=== PATIENT | female | born 1925 | race Caucasian/White ===

== ENCOUNTER → 2016-09-03 | Outpatient (CLI) | payer BC ==
[~2016-09-03] MED LIST: ASCO500T16 PO; ASPI81TA21 PO; B-CO1CAP17 PO; CALCTAB65 PO; CHOL1000 PO; CRD200 PO; LACTTAB PO; LEVO75TA25 PO; LEVO75TA5 PO; LORA-741 PO; MAGN250T22 PO; METO25TA56 PO; MIRT15TA3 PO; MULT-190 PO; MULTCAP33 PO; MULTTAB58 PO; PRT40 PO
[2016-09-03 18:26] LABS: THYROID STIMULATING HORMONE 2.12 uIu/ml (0.300-4.500)
== END | disposition home or self-care (01) ==
LOC: C.LABBFT 12:33
PROVIDERS: ATTEND Internal Medicine
DX: R63.4 Abnormal weight loss (principal)

== ENCOUNTER → 2017-01-28 | Outpatient (CLI) | payer BC ==
[2017-01-28 16:25] LABS: BASO % 0.5 %; BASO ABS # 0.02 K/uL (0-0.2); COMPLETE YES; EOS % 2.8 %; HEMATOCRIT 35.1 % (37-47); IG% 0.2 %; LYMPH % 21.9 %; LYMPH ABS # 0.95 K/uL (1.2-3.4); MEAN CELL VOLUME 94.4 fL (80-100); MEAN CORPUSCULAR HEMOGLOBIN 30.4 pg (25-34); MEAN CORPUSCULAR HGB CONC 32.2 g/dl (32-36); MEAN PLATELET VOLUME 10.6 fL (7.4-10.4); MONO % 9.7 %; NEUT % 64.9 %; PLATELET COUNT 237 K/uL (130-400); RED BLOOD COUNT 3.72 M/uL (4.2-5.4); WHITE BLOOD COUNT 4.33 K/uL (4.8-10.8)
[2017-01-28 16:33] LABS: ALT/SGPT 28 U/L (12-78); BLOOD UREA NITROGEN 25 mg/dl (7-18); BUN/CREATININE RATIO 20.7 (10-20); CARBON DIOXIDE 29 mmol/L (21-32); CHLORIDE 108 mmol/L (98-107); CHOLESTEROL 142 mg/dl (0-200); GLUCOSE 154 mg/dl (70-99); POTASSIUM 4.3 mmol/L (3.5-5.1); SODIUM 142 mmol/L (136-145)
[2017-01-28 16:44] LABS: ALB/GLOB RATIO 0.9 (0.9-2); ALKALINE PHOSPHATASE 110 U/L (45-117); AST/SGOT 22 U/L (15-37); CHOLESTEROL/HDL RATIO 2.7; HDL CHOLESTEROL 52 mg/dl; LDL CHOLESTEROL CALCULATED 63 mg/dl; TRIGLYCERIDES 134 mg/dl (0-150); VERY LOW DENSITY LIPOPROT CALC 27 mg/dl
== END | disposition home or self-care (01) ==
LOC: C.LABBFT 16:29
PROVIDERS: ATTEND Internal Medicine
DX: I48.91 Unspecified atrial fibrillation (principal); M81.0 Age-related osteoporosis without current pathological fracture; E03.9 Hypothyroidism, unspecified; E78.5 Hyperlipidemia, unspecified

== ENCOUNTER 2017-02-24 08:02 | Inpatient (IN) | payer BC, OTHER ==
[2017-02-24] VITALS (7 sets, daily range): BP systolic 112–169; BP diastolic 55–69; PULSE 61–66; TEMP 36.3–36.7; O2SAT 94–98; Ht 154.9 cm; Wt 54.9 kg
[~2017-02-24] VITALS: Ht 154.9 cm; Wt 54.9 kg
[~2017-02-24 08:02] MED LIST changes: -B-CO1CAP17 PO; -CHOL1000 PO; -CRD200 PO; -LEVO75TA5 PO; -MIRT15TA3 PO; -MULTCAP33 PO; -PRT40 PO
[2017-02-24] MEDS ORDERED: SODIUM CHLORIDE 0.9% 1000ML 1,000 ML IV STA (08:11)
--- NOTE | 2017-02-24 08:13 | EMERGENCY ROOM VISIT NOTE ---
History Report prepared by Branden: Jenifer August Under the Supervision of: Dr. Kobi Velasco M.D. First contact with patient: 08:05 Stated Complaint: LETHARGIC/GI BLEEDING History of Present Illness The patient is a 89 year old female who presents to the Emergency Room with complaints of a GI bleed beginning today. The patient reports that there was more blood with this GI bleed than her last one, which required a transfusion. She also complains of abdominal pain, but denies that she is coughing up blood. The patient has a history of rectal cancer. She reports being off of Coumadin for a couple of months. Source of History: patient Onset: today Position: other (rectum) Quality: other (GI bleed) Associated Symptoms: + abdominal pain Note: denied symptom: coughing up blood Review of Systems See HPI for pertinent positives & negatives. A total of 10 systems reviewed and were otherwise negative. Past Medical & Surgical Medical Problems: (1) Atrial fibrillation with RVR (2) Atrial fibrillation with RVR (3) Bleeding hemorrhoids (4) Chest pain syndrome (5) Hypothyroidism (6) Influenza B (7) Osteoporosis (8) rectal bleeding (9) Rectal cancer Family History FHx: cancer Social History Smoking Status: Never Smoker Alcohol Use: none Drug Use: none Marital Status: Housing Status: lives with family Occupation Status: retired Current/Historical Medications Scheduled Amiodarone HCl (Amiodarone HCl), 200 MG PO MWF Ascorbic Acid (Ascorbic Acid), 500 MG PO BID Aspirin Enteric Coated (Ecotrin Or Generic), 81 MG PO HS Calcium Carbonate-Vitamin D (Calcium 500 + D), 1 TAB PO DAILY Cholecalciferol (Vitamin D3), 1,000 UNIT PO DAILY Levothyroxine Sodium (Levothyroxine Sodium), 75 MCG PO DAILY Magnesium Oxide (Magnesium), 250 MG PO DAILY Mirtazapine (Remeron), 15 MG PO HS Multiple Vitamin (Multivitamin), 1 TAB PO DAILY Multiple Vitamins W/ Minerals (Preservision Areds), 1 CAP PO BID Vitamin B Cmplx/Vitc/Folic Ac (Nephrocaps), 1 CAP PO QAM Scheduled PRN Lorazepam (Ativan), 0.5 MG PO DAILY PRN for Anxiety Allergies Coded Allergies: Red Dye (Verified Allergy, Unknown, ., 8/16/17) Physical Exam Vital Signs Date Time Temp Pulse Resp B/P (MAP) Pulse Ox O2 Delivery O2 Flow Rate FiO2 02/24/17 10:11 68 20 150/65 98 Room Air 02/24/17 08:17 95 Room Air 02/24/17 08:15 36.9 69 16 171/95 96 Room Air 02/24/17 08:14 67 Physical Exam GENERAL: Patient is a healthy-appearing well-nourished female HEAD: Normocephalic atraumatic EYES: Ocular movements intact pupils equal and react to light OROPHARYNX mucous membranes are moist no exudates present no erythema or edema present NECK: Supple no nuchal rigidity CHEST: Good equal expansion LUNGS: Clear and equal to auscultation CARDIAC: Normal S1 and S2 ABDOMEN: Soft nontender no guarding BACK: No CVA tenderness RECTAL: grossly positive exam EXTREMITIES: No pain upon palpation normal muscle strength in all groups no clubbing cyanosis or edema NEURO: Patient is following commands and answering questions appropriately. Alert and oriented x3 Cranial Nerves 2-12 grossly intact Medical Decision & Procedures ER Provider Diagnostic Interpretation: Radiology results as stated below per my review and radiologist interpretation: CT ABD/PELVIS IV CONTRAST ONLY CLINICAL HISTORY: Rectal bleeding HISTORY OF RECTAL CARCINOMA COMPARISON STUDY: 09/10/2015 TECHNIQUE: Following the IV administration of 93 mL of Optiray-320, CT scan of the abdomen and pelvis was performed from the lung bases to the proximal femurs. Images are reviewed in the axial, sagittal, and coronal planes. IV contrast was administered without complication. A dose lowering technique was utilized adhering to the principles of ALARA. CT DOSE: 397.62 mGycm FINDINGS: Lower chest: The heart is enlarged. There is mild bibasilar atelectasis. Liver: There is mild central intrahepatic biliary ductal prominence, unchanged the prior study. There is a stable 11 mm cyst within the lateral segment of the left lobe area Gallbladder: Not visualized Spleen: Normal in size and attenuation. Pancreas: There is an 11 mm cystic lesion at the level of the pancreatic tail. There is a 17 mm cystic lesion at the level the uncinate process. 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 Adrenal glands: Unremarkable. Kidneys: There are bilateral renal cysts, the largest of which arises from the upper pole the left kidney measuring 36 mm. Bowel: There are no transition zones indicate bowel obstruction. There is mild fecal retention. There is pandiverticulosis. There are no findings to indicate acute diverticulitis. There is a hyperdense diverticulum within the transverse colon. Hemorrhage into a diverticulum cannot be excluded. Peritoneum: There is no intraperitoneal free air or abdominal ascites. Vasculature: The abdominal aorta is normal in course and caliber. Adenopathy: None. Pelvic viscera: The uterus appears surgically absent. Skeletal structures: No destructive osseous lesions are seen. There is a lumbar levoscoliosis. Degenerative changes are present within the spine and hips. IMPRESSION: 1. No evidence of bowel obstruction. No evidence of free air 2. Pandiverticulosis 3. No evidence of acute diverticulitis 4. Hyperdense diverticulum within the transverse colon. Hemorrhage into a diverticulum cannot be excluded 5. 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 02/24/2017 9:36 AM Dictated Date/Time: 02/24/2017 9:27 AM Laboratory Results 02/24/17 08:20 Red Blood Count 3.88, Mean Corpuscular Volume 91.2, Mean Corpuscular Hemoglobin 30.4, Mean Corpuscular Hemoglobin Concent 33.3, Mean Platelet Volume 10.8, Neutrophils (%) (Auto) 66.9, Lymphocytes (%) (Auto) 21.3, Monocytes (%) (Auto) 8.2, Eosinophils (%) (Auto) 3.0, Basophils (%) (Auto) 0.4, Neutrophils # (Auto) 3.78, Lymphocytes # (Auto) 1.20, Monocytes # (Auto) 0.46, Eosinophils # (Auto) 0.17, Basophils # (Auto) 0.02 02/24/17 08:20 Test 02/24/17 08:20 02/24/17 08:24 02/24/17 08:26 02/24/17 10:43 White Blood Count 5.64 K/uL (4.8-10.8) Red Blood Count 3.88 M/uL (4.2-5.4) Hemoglobin 11.8 g/dL (12.0-16.0) Hematocrit 35.4 % (37-47) Mean Corpuscular Volume 91.2 fL (80-100) Mean Corpuscular Hemoglobin 30.4 pg (25-34) Mean Corpuscular Hemoglobin Concent 33.3 g/dl (32-36) Platelet Count 210 K/uL (130-400) Mean Platelet Volume 10.8 fL (7.4-10.4) Neutrophils (%) (Auto) 66.9 % Lymphocytes (%) (Auto) 21.3 % Monocytes (%) (Auto) 8.2 % Eosinophils (%) (Auto) 3.0 % Basophils (%) (Auto) 0.4 % Neutrophils # (Auto) 3.78 K/uL (1.4-6.5) Lymphocytes # (Auto) 1.20 K/uL (1.2-3.4) Monocytes # (Auto) 0.46 K/uL (0.11-0.59) Eosinophils # (Auto) 0.17 K/uL (0-0.5) Basophils # (Auto) 0.02 K/uL (0-0.2) RDW Standard Deviation 44.6 fL (36.4-46.3) RDW Coefficient of Variation 13.4 % (11.5-14.5) Immature Granulocyte % (Auto) 0.2 % Immature Granulocyte # (Auto) 0.01 K/uL (0.00-0.02) Activated Partial Thromboplast Time 24.7 SECONDS (21.0-31.0) Partial Thromboplastin Ratio 1.0 Est Creatinine Clear Calc Drug Dose 31.9 ml/min Estimated GFR () 58.6 Estimated GFR (Non- 50.5 BUN/Creatinine Ratio 31.5 (10-20) Calcium Level 9.5 mg/dl (8.5-10.1) Total Bilirubin 0.7 mg/dl (0.2-1) Direct Bilirubin 0.1 mg/dl (0-0.2) Aspartate Amino Transf (AST/SGOT) 22 U/L (15-37) Alanine Aminotransferase (ALT/SGPT) 25 U/L (12-78) Alkaline Phosphatase 101 U/L (45-117) Total Protein 7.6 gm/dl (6.4-8.2) Albumin 3.6 gm/dl (3.4-5.0) Lipase 172 U/L (73-393) Bedside Hemoglobin 12.6 g/dl (12.0-16.0) Bedside Hematocrit 37 % (37-47) Bedside Sodium 142 mEq/L (135-144) Bedside Potassium 4.2 mEq/L (3.3-5.0) Bedside Chloride 107 mEq/L (101-112) Bedside Total CO2 24 mEq/l (24-31) Anion Gap 16.0 mmol/L (16-25) Bedside Blood Urea Nitrogen 30 mg/dl (7-18) Bedside Creatinine 0.9 mg/dl (0.6-1.3) Bedside Glucose (other) 84 mg/dl (70-99) Bedside Ionized Calcium (Jaime) 1.16 mmol/l (1.12-1.32) Urine Color YELLOW Urine Appearance CLEAR (CLEAR) Urine pH >= 9.0 (4.5-7.5) Urine Specific [place] 1.012 (1.000-1.030) Urine Protein NEG (NEG) Urine Glucose (UA) NEG (NEG) Urine Ketones NEG (NEG) Urine Occult Blood NEG (NEG) Urine Nitrite NEG (NEG) Urine Bilirubin NEG (NEG) Urine Urobilinogen NEG (NEG) Urine Leukocyte Esterase TRACE (NEG) Urine WBC (Auto) 1-5 /hpf (0-5) Urine RBC (Auto) 0-4 /hpf (0-4) Urine Hyaline Casts (Auto) 0 /lpf (0-5) Urine Epithelial Cells (Auto) 5-10 /lpf (0-5) Urine Bacteria (Auto) NEG (NEG) Creatine Kinase MB Ratio (0-3.0) Labs reviewed by ED physician. Medications Administered Medications (Trade) Dose Ordered Sig/Dariela Route Start Time Stop Time Status Last Admin Dose Admin Sodium Chloride 1,000 ml @ 999 mls/hr Q1H1M STAT IV 02/24/17 08:11 02/24/17 09:11 DC 02/24/17 08:52 999 MLS/HR Pantoprazole Sodium 80 mg/ Dextrose 120 ml @ 480 mls/hr NOW ONCE IV 02/24/17 08:30 02/24/17 08:44 DC 02/24/17 08:53 480 MLS/HR Pantoprazole Sodium 40 mg/ Dextrose 100 ml @ 20 mls/hr Q5H IV 02/24/17 08:45 02/24/17 13:44 02/24/17 09:30 20 MLS/HR ECG Indication: weakness Rate (beats per minute): 67 Rhythm: normal sinus Findings: T-wave inversion (Lateral), no acute ischemic change, no ectopy ED Course 0806: Past medical records reviewed. The patient was evaluated in room A10. A complete history and physical examination was performed. 0811: Ordered Sodium Chloride 1,000 ml @ 999 mls/hr IV. 0830: Ordered Pantoprazole Sodium 80 mg/Dextrose 120 ml @ 480 mls/hr IV. 0845: Ordered Pantoprazole Sodium 40 mg/Dextrose 100 ml @ 20 mls/hr IV. 0915: I discussed the patient's case with Dr. Cruz, she has agreed to evaluate the patient for further management and care. 1006: Ordered Metronidazole 500 mg IV, Ciprofloxacin/Dextrose 400 mg IV. 1030: Upon reexamination the patient is resting. I discussed results and treatment plan with the patient. She verbalizes agreement and understanding. I spoke with Dr. Cruz from the [facility]. The patient will be evaluated for further management. Medical Decision Differential diagnosis: Etiologies such as diverticulosis, AVM, coagulopathy, colitis, inflammatory bowel disease, malignancy, Pat-Gramajo tear, esophagitis, peptic ulcer disease , variceal bleed, gastritis, epistaxis, fissure, hemorrhoids, as well as others were entertained. This is an 89-year-old female who presents emergency department after large amount of rectal bleeding today. The patient appears somewhat confused. An IV was established, the patient was started on Protonix bolus and drip. She has vague abdominal tenderness therefore she was sent for CAT scan of the abdomen and pelvis. This was concerning for possible diverticular bleed and for this reason I did discuss the case with gastroenterology. I will also start the patient on Cipro and Flagyl. Patient was in agreement with the treatment plan. Blood Pressure Screening Patient's blood pressure: Elevated blood pressure Blood pressure disposition: Referred to PCP Consults Time Called: [phone] Consulting Physician: Dr. Cruz, [facility] Returned Call: [phone] I discussed the patient's case with Dr. Cruz, she has agreed to evaluate the patient for further management and care. Impression Primary Impression: GI bleed Scribe Attestation The scribe's documentation has been prepared under my direction and personally reviewed by me in its entirety. I confirm that the note above accurately reflects all work, treatment, procedures, and medical decision making performed by me. Departure Information Dispostion Being Evaluated By Hospitalist Referrals Jaimes, Christopher E.,M.D. (PCP) Problem Qualifiers Primary Impression: GI bleed GI bleed type/associated pathology: unspecified gastrointestinal hemorrhage type Qualified Codes: K92.2 - Gastrointestinal hemorrhage, unspecified
[2017-02-24] MEDS ORDERED: PANTOprazole INJ 80 MG in DEXTROSE 5% 100ML IV ONE (08:30)
[2017-02-24 08:38] LABS: ISTAT CREATININE 0.9 mg/dl (0.6-1.3); ISTAT HEMOGLOBIN 12.6 g/dl (12.0-16.0); ISTAT IONIZED CALCIUM 1.16 mmol/l (1.12-1.32)
[2017-02-24 08:40] LABS: BASO % 0.4 %; BASO ABS # 0.02 K/uL (0-0.2); COMPLETE YES; HEMATOCRIT 35.4 % (37-47); IG% 0.2 %; LYMPH % 21.3 %; MEAN CELL VOLUME 91.2 fL (80-100); MEAN CORPUSCULAR HEMOGLOBIN 30.4 pg (25-34); MEAN CORPUSCULAR HGB CONC 33.3 g/dl (32-36); MEAN PLATELET VOLUME 10.8 fL (7.4-10.4); MONO % 8.2 %; NEUT % 66.9 %; PLATELET COUNT 210 K/uL (130-400); RED BLOOD COUNT 3.88 M/uL (4.2-5.4); WHITE BLOOD COUNT 5.64 K/uL (4.8-10.8)
[2017-02-24] MEDS ORDERED: PANTOprazole INJ 40 MG in DEXTROSE 5% 100ML IV SCH (08:45)
[2017-02-24 08:47] LABS: PROTHROMBIN TIME (PATIENT) 10.7 SECONDS (9.0-12.0)
[2017-02-24 08:56] LABS: BUN/CREATININE RATIO 31.5 (10-20); CALCIUM 9.5 mg/dl (8.5-10.1); CREATININE 0.99 mg/dl (0.60-1.20); POTASSIUM 4.2 mmol/L (3.5-5.1)
[2017-02-24] MEDS ORDERED: MULTCAP33 PO (08:58)
[2017-02-24] MEDS ORDERED: MIRT15TA3 PO (08:58)
[2017-02-24] MEDS ORDERED: CHOL1000 PO (08:58)
[2017-02-24] MEDS ORDERED: LEVO75TA5 PO (08:58)
[2017-02-24] MEDS ORDERED: B-CO1CAP17 PO (08:58)
[2017-02-24] MEDS ORDERED: CRD200 PO (08:58)
[2017-02-24 09:13] LABS: URINE APPEARANCE CLEAR (CLEAR); URINE BILIRUBIN NEG (NEG); URINE COLOR YELLOW; URINE NITRITE NEG (NEG); URINE PH >= 9.0 (4.5-7.5); URINE SPECIFIC GRAVITY 1.012 (1.000-1.030); UROBILINOGEN NEG (NEG)
[2017-02-24 09:18] LABS: MANUAL MICROSCOPIC REQUIRED? NO; REVIEW REQ? NO
--- NOTE | 2017-02-24 09:37 | DIAGNOSTIC IMAGING REPORT ---
CT ABD/PELVIS IV CONTRAST ONLY CLINICAL HISTORY: Rectal bleeding HISTORY OF RECTAL CARCINOMA COMPARISON STUDY: 09/10/2015 TECHNIQUE: Following the IV administration of 93 mL of Optiray-320, CT scan of the abdomen and pelvis was performed from the lung bases to the proximal femurs. Images are reviewed in the axial, sagittal, and coronal planes. IV contrast was administered without complication. A dose lowering technique was utilized adhering to the principles of ALARA. CT DOSE: 397.62 mGycm FINDINGS: Lower chest: The heart is enlarged. There is mild bibasilar atelectasis. Liver: There is mild central intrahepatic biliary ductal prominence, unchanged the prior study. There is a stable 11 mm cyst within the lateral segment of the left lobe area Gallbladder: Not visualized Spleen: Normal in size and attenuation. Pancreas: There is an 11 mm cystic lesion at the level of the pancreatic tail. There is a 17 mm cystic lesion at the level the uncinate process. 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 Adrenal glands: Unremarkable. Kidneys: There are bilateral renal cysts, the largest of which arises from the upper pole the left kidney measuring 36 mm. Bowel: There are no transition zones indicate bowel obstruction. There is mild fecal retention. There is pandiverticulosis. There are no findings to indicate acute diverticulitis. There is a hyperdense diverticulum within the transverse colon. Hemorrhage into a diverticulum cannot be excluded. Peritoneum: There is no intraperitoneal free air or abdominal ascites. Vasculature: The abdominal aorta is normal in course and caliber. Adenopathy: None. Pelvic viscera: The uterus appears surgically absent. Skeletal structures: No destructive osseous lesions are seen. There is a lumbar levoscoliosis. Degenerative changes are present within the spine and hips. IMPRESSION: 1. No evidence of bowel obstruction. No evidence of free air 2. Pandiverticulosis 3. No evidence of acute diverticulitis 4. Hyperdense diverticulum within the transverse colon. Hemorrhage into a diverticulum cannot be excluded 5. 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 02/24/2017 9:36 AM Dictated Date/Time: 02/24/2017 9:27 AM
[2017-02-24] MEDS ORDERED: CIPROFLOXACIN 400MG / 200ML D5W IV STA (10:06)
[2017-02-24] MEDS ORDERED: METRONIDAZOLE 500MG / 100ML NSS IV STA (10:06)
[2017-02-24] MEDS ORDERED: ACETAMINOPHEN 325 MG TAB PO PRN (10:45)
[2017-02-24] MEDS ORDERED: ALUMINUM/MAGNESIUM/SIMETH (MAALOX MAX) 30 ML UDC PO PRN (10:45)
[2017-02-24] MEDS ORDERED: ONDANSETRON INJ 2 MG/ML 2 ML VIAL IV PRN (10:45)
[2017-02-24] MEDS ORDERED: MAGNESIUM HYDROXIDE SUSP 30 ML UDC PO PRN (10:45)
[2017-02-24] MEDS ORDERED: ZOLPIDEM TARTRATE 5 MG TAB PO PRN (10:45)
[2017-02-24] MEDS ORDERED: LORAZEPAM 0.5 MG TAB PO PRN (11:15)
--- NOTE | 2017-02-24 11:18 | History and Physical ---
History & Physical Date of Service Feb 24, 2017. History & Physical rectal bleeding, [id number]
--- NOTE | 2017-02-24 12:00 | HISTORY & PHYSICAL EXAMINATION ---
DATE OF ADMISSION: 02/24/2017 This is a level 3 inpatient admission, 35 minutes. CHIEF COMPLAINT: Rectal bleeding. HISTORY OF PRESENT ILLNESS: The patient is an 89-year-old white female with significant past medical history of Afib with RVR, hypothyroidism, osteoporosis, rectal cancer, GI bleeding coming into the hospital Emergency Department because of the above chief complaint. The medical information was from the patient, patient's family and ED progress note. Per report there was blood from the rectal. She also complained about some abdominal pain. The patient reported has rectal cancer years ago, had radiation and chemo therapies. Last time seen by specialist was many years ago, but she did report there was having GI bleeding in last year in November 2015. The patient has been doing good in life with activities until this morning. she found more blood from the rectal and then she was some possible confused. She reported there was large amount of rectal bleeding today. In the Emergency Room, hemoglobin was checked at 11.8. I was called to do the admission. When I interviewed with the patient, she no more confused. She is awake, alert, and orientated, conversational, follows all commands. Confirmed me the above information. Minimal abdominal pain in the middle and right side. Denied fever or chill. Denied cough, sputum, shortness of breath. Denied chest pain, palpitation, or lower extremity swelling. Denied nausea, vomiting. Denied diarrhea or constipation. Denied dysuria, urgency, or frequencies. Denied facial droop, slurry speeches or local weakness. PAST MEDICAL HISTORY: Afib with rapid ventricular response she also have pulmonary embolization per daughter, was on Coumadin before. Coumadin was off because of history of recurrent GI bleeding. History of chest pain syndrome, hypothyroidism, osteoporosis and rectal cancer. FAMILY HISTORY: Include cancer. SOCIAL HISTORY: Never smoked. Denied alcohol abuse disorder, denied illicit drug abuse. The patient is . MEDICATIONS: Taking at home include amiodarone 200 mg p.o. Wednesday, Wednesday, Wednesday, ascorbic acid 500 mg p.o. b.i.d., aspirin 81 mg p.o. at bedtime, calcium with vitamin D 1 tab p.o. daily, vitamin D3 1000 units p.o. daily, levothyroxine 75 mcg p.o. daily, lorazepam 0.5 mg p.o. p.r.n. for anxiety, mag oxide 250 mg p.o. daily, Remeron 15 mg p.o. at bedtime, multiple vitamin 1 tab p.o. daily, vitamin B complex 1 tab p.o. daily. PHYSICAL EXAMINATION: VITAL SIGNS: Temperature is 36.9, pulse 69, respiration rate 16, blood pressure 171/95. Pulse ox was 95% on room air. GENERAL: The patient is white female, looks much younger than her age. She is awake, alert, and orientated, conversational, follows all commands. HEAD: Normocephalic. EYES: Pupils equal, round responds to light. EARS: Normal. NOSE: Normal. NECK: Thyroid, no enlargement. Trachea midline. HEART: Regular rhythm. S1, S2. LUNGS: Decreased breathing sounds. There was no wheezing, rhonchi or crackles. ABDOMEN: Soft, nontender. Bowel sound was positive. There was minimal middle and right lower extremity uncomfortable. BILATERAL LOWER EXTREMITIES: No swelling. Homans sign was negative. Calf was nontender. GENITOURINARY AND RECTAL: Deferred. NEUROLOGICAL EVALUATION: Cranial nerve II-XII was intact. There was no local deficits. MUSCULOSKELETAL SYSTEM: Moves upper and lower extremities. No limited range of motion. SKIN: Has no rashes. LABORATORY STUDIES: WBC 5, hemoglobin 11, platelet 210. PT/INR was 10/1. Sodium 142, potassium 4.2, BUN 30, creatinine 0.9. Liver function test was within normal limits. Cardiac enzyme, troponin is pending. Lipase 172. UA shows trace leukocyte esterase. IMAGING STUDIES: Include abdominal CT studies, there was no evidence of bowel obstruction, no free air. There was gonzales diverticulosis. No evidence of acute diverticulitis. There was hyperdense diverticulum within the transverse colon, hemorrhage into diverticulum cannot be excluded. 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 ASSESSMENT AND PLAN: An 89-year-old white female with the problems below: 1. Rectal bleeding with history of rectal cancer and lower gastrointestinal bleeding. 2. Was mild confused prior to the Emergency Room visit totally resolved. 3. History of Afib, no more on Coumadin. 4. Possible history of pulmonary embolism per family, but was not in the document. Not on any blood thinner. 5. Hypothyroidism. 6. History of osteoporosis. 7. Abdominal CT studies, possible hemorrhage into diverticulum cannot be excluded. 8. 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 PLAN: The patient has a history of colon cancer with active rectal bleeding. For now will admit to the hospital. PCU only. We will keep n.p.o. except medication. Protonix iv, and HH q. 8 x5 times. GI consult. I request surgeon consult because of possible hemorrhages into the diverticulum cannot be excluded. I will also request GI to address small bowel cystic pancreatic lesions likely be presenting IPMNS. Because IPMNS possible have 50% malignancy. type and screen blood. Discussed the risk and benefit of the blood transfusion. Consent was signed. For hypothyroidism, we will start IV levothyroxine. Hold other medications. Hold aspirin for now. Follow up renal function and H&H. I am checking cardiac enzyme troponin x1 set now. Gastrointestinal prophylaxis will be Protonix. DVT prophylaxis is SCD. No heparin product because is contraindicated. Discussed with patient and patient's daughter and son-in-law at bedside about the patient's condition and care plan. Discussed with the code status, PATIENT WANTS TO BE FULL CODE. I answered all the questions to the patient and family to their satisfaction. FLORENCE
--- NOTE | 2017-02-24 12:19 | Gastrointestinal Consultation ---
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 She woke up at 5AM, went to urinate but then noticed to start having bright red rectal bleeding w small amt of soft stool. She denies any associated symptoms of n/v, abd pain/cramping, rectal pain/itching. By the time she got to bed around 6AM, noticed blood on pt's gown. Family decided then to take her to ED. Upon evaluation, she was noted to have H/H , rectal exam w heme positive. CMP showed mild BUN elevation at 30. INR normal. LFTs and lipase normal. She is c/o some light headedness, but no CP, SOB. VS stable, except HTN. She did have hx of rectal bleeding in the November 2015. Had colonoscopy by Dr. Anderson then which showed severe diverticulosis on sigmoid colon, no active bleeding at that time but scope was difficult to pass due to narrowing related to diverticuli. Proximal lesion cannot be excluded. If future screening to be done she was recommended to have virtual or barium colonoscopy. CT abd/pelvis today: 1. No evidence of bowel obstruction. No evidence of free air 2. Pandiverticulosis 3. No evidence of acute diverticulitis 4. Hyperdense diverticulum within the transverse colon. Hemorrhage into a diverticulum cannot be excluded 5. 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 Past Medical/Surgical History Medical Problems: (1) GI bleed Status: Acute (2) GI bleed Status: Acute (3) Lower GI bleed Status: Acute Past Medical History: See HPI Past Surgical History: Cholecystectomy Hysterectomy Partial Colectomy Family History FHx: cancer Social History Smoking Status: Never Smoker Alcohol Use: none Drug Use: none Marital Status: Housing Status: lives with family Occupation Status: retired Allergies Coded Allergies: Red Dye (Verified Allergy, Unknown, ., 02/24/17) Current Medications Home Meds and Scripts Medications Dose Route/Sig Max Daily Dose Days Date Category Remeron (Mirtazapine) 15 Mg Tab 15 Mg PO HS 02/24/17 Reported Vitamin D3 (Cholecalciferol) 1,000 Unit Tab 1,000 Unit PO DAILY 02/24/17 Reported Nephrocaps (Vitamin B Complex/Vit C/Folic Acid) Cap 1 Cap PO QAM 02/24/17 Reported Preservision Areds (Multiple Vitamins W/ Minerals) 1 Cap Cap 1 Cap PO BID 02/24/17 Reported Levothyroxine Sodium 75 Mcg Tab 75 Mcg PO DAILY 02/24/17 Reported Amiodarone HCl 200 Mg Tab 200 Mg PO MWF 02/24/17 Reported Calcium 500 + D (Calcium Carbonate-Vitamin D) 1 Tab Tab 1 Tab PO DAILY 11/15/15 Reported Magnesium (Magnesium Oxide) 250 Mg Tab 250 Mg PO DAILY 07/03/14 Reported Ativan (Lorazepam) 0.5 Mg Tab 0.5 Mg PO DAILY PRN 07/25/12 Reported Multivitamin (Multiple Vitamin) 1 Tab Tab 1 Tab PO DAILY 07/25/12 Reported Ecotrin Or Generic (Aspirin) 81 Mg Tab 81 Mg PO HS 07/25/12 Reported Ascorbic Acid 500 Mg Tab 500 Mg PO BID 07/25/12 Reported Review of Systems Constitutional: No fever, No chills Respiratory: No cough, No shortness of breath Cardiac: No chest pain Abdomen: + GI bleeding, No pain, No nausea, No vomiting Skin: No rash, No itch, No jaundice Physical Exam Date Time Temp Pulse Resp B/P (MAP) Pulse Ox O2 Delivery O2 Flow Rate FiO2 02/24/17 11:50 64 18 163/67 96 02/24/17 11:08 65 02/24/17 10:15 98 Room Air 02/24/17 10:11 68 20 150/65 98 Room Air 02/24/17 08:17 95 Room Air 02/24/17 08:15 36.9 69 16 171/95 96 Room Air 02/24/17 08:14 67 General Appearance: WD/WN, no apparent distress Eyes: normal inspection, PERRL, EOMI Neck: supple, no JVD, trachea midline Respiratory/Chest: normal breath sounds, no respiratory distress, no accessory muscle use Cardiovascular: regular rate, rhythm, no gallop, no murmur Abdomen: normal bowel sounds, non tender, soft, + pertinent finding (Rectal exam: no masses/hemorrhoids on external. Int exam, soft int hemorrhoids + dried small blood clots) Extremities: normal inspection, no pedal edema, no calf tenderness Neurologic/Psych: alert, normal mood/affect, oriented x 3 Skin: normal color, no jaundice, no rash Laboratory Results Last 24 Hours Test 02/24/17 08:20 02/24/17 08:24 02/24/17 08:26 02/24/17 10:43 White Blood Count 5.64 K/uL Red Blood Count 3.88 M/uL Hemoglobin 11.8 g/dL Hematocrit 35.4 % Mean Corpuscular Volume 91.2 fL Mean Corpuscular Hemoglobin 30.4 pg Mean Corpuscular Hemoglobin Concent 33.3 g/dl Platelet Count 210 K/uL Mean Platelet Volume 10.8 fL Neutrophils (%) (Auto) 66.9 % Lymphocytes (%) (Auto) 21.3 % Monocytes (%) (Auto) 8.2 % Eosinophils (%) (Auto) 3.0 % Basophils (%) (Auto) 0.4 % Neutrophils # (Auto) 3.78 K/uL Lymphocytes # (Auto) 1.20 K/uL Monocytes # (Auto) 0.46 K/uL Eosinophils # (Auto) 0.17 K/uL Basophils # (Auto) 0.02 K/uL RDW Standard Deviation 44.6 fL RDW Coefficient of Variation 13.4 % Immature Granulocyte % (Auto) 0.2 % Immature Granulocyte # (Auto) 0.01 K/uL Prothrombin Time 10.7 SECONDS Prothromb Time International Ratio 1.0 Activated Partial Thromboplast Time 24.7 SECONDS Partial Thromboplastin Ratio 1.0 Sodium Level 142 mmol/L Potassium Level 4.2 mmol/L Chloride Level 109 mmol/L Carbon Dioxide Level 25 mmol/L Anion Gap 8.0 mmol/L 16.0 mmol/L Blood Urea Nitrogen 31 mg/dl Creatinine 0.99 mg/dl Est Creatinine Clear Calc Drug Dose 31.9 ml/min Estimated GFR () 58.6 Estimated GFR (Non- 50.5 BUN/Creatinine Ratio 31.5 Random Glucose 80 mg/dl Calcium Level 9.5 mg/dl Total Bilirubin 0.7 mg/dl Direct Bilirubin 0.1 mg/dl Aspartate Amino Transf (AST/SGOT) 22 U/L Alanine Aminotransferase (ALT/SGPT) 25 U/L Alkaline Phosphatase 101 U/L Creatine Kinase MB 4.5 ng/ml Creatine Kinase MB Ratio Troponin I < 0.015 ng/ml Total Protein 7.6 gm/dl Albumin 3.6 gm/dl Lipase 172 U/L Bedside Hemoglobin 12.6 g/dl Bedside Hematocrit 37 % Bedside Sodium 142 mEq/L Bedside Potassium 4.2 mEq/L Bedside Chloride 107 mEq/L Bedside Total CO2 24 mEq/l Bedside Blood Urea Nitrogen 30 mg/dl Bedside Creatinine 0.9 mg/dl Bedside Glucose (other) 84 mg/dl Bedside Ionized Calcium (Jaime) 1.16 mmol/l Urine Color YELLOW Urine Appearance CLEAR Urine pH >= 9.0 Urine Specific [place] 1.012 Urine Protein NEG Urine Glucose (UA) NEG Urine Ketones NEG Urine Occult Blood NEG Urine Nitrite NEG Urine Bilirubin NEG Urine Urobilinogen NEG Urine Leukocyte Esterase TRACE Urine WBC (Auto) 1-5 /hpf Urine RBC (Auto) 0-4 /hpf Urine Hyaline Casts (Auto) 0 /lpf Urine Epithelial Cells (Auto) 5-10 /lpf Urine Bacteria (Auto) NEG Impression Patient is a 89 year old female w painless rectal bleeding. Hx of rectal ca in , + severe diverticulosis. Previously had similar presentation of rectal bleeding in November 2015 suspected to be either hemorrhoidal or diverticular in nature. Colonoscopy unable to be fully completed due to diverticular narrowing. Suspect this time another diverticular bleed. CT showed: 1. No evidence of bowel obstruction. No evidence of free air 2. Pandiverticulosis 3. No evidence of acute diverticulitis 4. Hyperdense diverticulum within the transverse colon. Hemorrhage into a diverticulum cannot be excluded 5. 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 - No need for PPI gtt; ok for Protonix 40mg IV BID. - Supportive management I have seen and examined the patient with SAMARA Guardado whose note reflects our findings and plan. Agree with stool testing. She had a limited scope last year which showed sigmoid diverticulosis. Suspect this is the etiology. She has severe diverticular disease with restricted mobility. Attempting a repeat colonoscopy was advised against by Dr. Anderson. I do not feel strongly that she needs a colonoscopy repeated. Follow H/H and symptoms.
[2017-02-24] MEDS ORDERED: PANTOprazole INJ 40 MG in SYRINGE 0 ML IV ONE (12:21)
--- NOTE | 2017-02-24 13:21 | Surgery Consultation ---
Consultation Date of Consultation: Feb 24, 2017. Attending Physician: Huan Vargas MD, PhD History of Present Illness Monisha Donahue is an 89 year old woman with A fib (on ASA 81mg only, no other anticoagulation), hx of PE, hypothyroidism, osteoporosis, history of rectal cancer s/p chemo, radiation and endoscopic resection who presents with painless rectal bleeding, which started early this morning. She has had previous episodes of rectal bleeding in the past, most recently in November 2015; during this episode, a colonoscopy was attempted, but due to extensive diverticulum with narrowing of the colon, was unable to traverse the entire colon. She has not had any sigmoidoscopy / colonoscopies since that time. It was suspected that she had a diverticular bleed. Patient states the episode started around 5am this morning, at which time she had a bowel movement and noted blood in the toilet bowel. Her also noticed blood on the back of her clothing. She has continued to bleed throughout the morning, and presented to the ED for evaluation. She has otherwise been in her normal state of health - denies recent fever, chills, headaches, vision changes, chest pain, SOB, abdominal pain , N/V, appetite or weight changes, constipation / diarrhea, melena / hematochezia, dysuria or urinary symptoms, pain / numbness / swelling / tingling in extremities. She notes after she arrived to the ED she felt cold and lightheaded and had mild right sided abdominal pain. She has a history of open cholecystectomy and hysterectomy. Past Medical/Surgical History Medical History: Atrial fibrillation Hypothyroidism History of PE Osteoporosis History of rectal cancer - s/p chemo, radiation, endoscopic resection Diverticulosis Histor of previous lower GI bleeds Surgical History: Open cholecystectomy Hysterectomy Endoscopic resection of rectal cancer Family History FHx: cancer Social History Smoking Status: Never Smoker Drug Use: none Marital Status: Housing Status: lives with family Occupation Status: retired Allergies Coded Allergies: Red Dye (Verified Allergy, Unknown, ., 02/24/17) Home Medications Scheduled Amiodarone HCl (Amiodarone HCl), 200 MG PO MWF Ascorbic Acid (Ascorbic Acid), 500 MG PO BID Aspirin Enteric Coated (Ecotrin Or Generic), 81 MG PO HS Calcium Carbonate-Vitamin D (Calcium 500 + D), 1 TAB PO DAILY Cholecalciferol (Vitamin D3), 1,000 UNIT PO DAILY Levothyroxine Sodium (Levothyroxine Sodium), 75 MCG PO DAILY Magnesium Oxide (Magnesium), 250 MG PO DAILY Mirtazapine (Remeron), 15 MG PO HS Multiple Vitamin (Multivitamin), 1 TAB PO DAILY Multiple Vitamins W/ Minerals (Preservision Areds), 1 CAP PO BID Vitamin B Cmplx/Vitc/Folic Ac (Nephrocaps), 1 CAP PO QAM Scheduled PRN Lorazepam (Ativan), 0.5 MG PO DAILY PRN for Anxiety Current Inpatient Medications Current Inpatient Medications Medications (Trade) Dose Ordered Sig/Dariela Route Start Time Stop Time Status Last Admin Dose Admin Potassium Chloride/Sodium Chloride 1,000 ml @ 100 mls/hr Q10H IV 02/24/17 12:30 03/26/17 12:29 Acetaminophen (Tylenol Tab) 650 mg Q4H PRN PO 02/24/17 10:45 03/26/17 10:44 Al Hydrox/Mg Hydrox/Simethicone (Maalox Max Susp) 15 ml Q4H PRN PO 02/24/17 10:45 03/26/17 10:44 Magnesium Hydroxide (Milk Of Magnesia Susp) 30 ml Q12H PRN PO 02/24/17 10:45 03/26/17 10:44 Zolpidem Tartrate (Ambien Tab) 5 mg HSZ PRN PO 02/24/17 10:45 03/26/17 10:44 Ondansetron HCl (Zofran Inj) 4 mg Q6H PRN IV 02/24/17 10:45 03/26/17 10:44 Amiodarone HCl (Cordarone Tab) 200 mg MoWeFr PO 02/24/17 13:00 03/26/17 12:59 Lorazepam (Ativan Tab) 0.5 mg DAILY PRN PO 02/24/17 11:15 03/26/17 11:14 Mirtazapine (Remeron Tab) 15 mg HS PO 02/24/17 21:00 03/26/17 20:59 Levothyroxine Sodium 37.5 mcg/ Syringe 1.875 ml @ 2 mls/min DAILY@09 IV 02/25/17 09:00 03/27/17 08:59 Pantoprazole Sodium 40 mg/ Syringe 10 ml @ 5 mls/min DAILY@,21 IV 02/24/17 21:00 03/26/17 20:59 Review of Systems Constitutional: + weakness, No fever, No sweats, No weight loss Eyes: No worsening of vision, No eye pain Respiratory: No cough, No shortness of breath, No dyspnea on exertion Cardiovascular: No chest pain, No edema Abdomen: + pain (mild right abdominal pain), + GI bleeding (Rectal bleeding since 5am this morning, now slowed), No nausea, No vomiting, No diarrhea, No constipation Genitourinary - Female: No dysuria Neurologic: + memory loss Physical Exam Date Time Temp Pulse Resp B/P (MAP) Pulse Ox O2 Delivery O2 Flow Rate FiO2 02/24/17 12:13 36.3 63 18 156/69 (98) 96 Room Air 02/24/17 11:50 64 18 163/67 96 02/24/17 11:08 65 02/24/17 10:15 98 Room Air 02/24/17 10:11 68 20 150/65 98 Room Air 02/24/17 08:17 95 Room Air 02/24/17 08:15 36.9 69 16 171/95 96 Room Air 02/24/17 08:14 67 General Appearance: WD/WN, no apparent distress Head: normocephalic, atraumatic Neck: supple Respiratory/Chest: lungs clear, normal breath sounds, no respiratory distress Cardiovascular: regular rate, rhythm Abdomen/GI: normal bowel sounds, soft, + tenderness (mild right abdominal tenderness to palpation), + abnormal rectal exam (normal to external examination , no internal masses palpable, very small amount of dark blood on glove) Back: normal inspection Skin: normal color, warm/dry Laboratory Results Last 24 Hours Test 02/24/17 08:20 02/24/17 08:24 02/24/17 08:26 02/24/17 10:43 White Blood Count 5.64 K/uL Red Blood Count 3.88 M/uL Hemoglobin 11.8 g/dL Hematocrit 35.4 % Mean Corpuscular Volume 91.2 fL Mean Corpuscular Hemoglobin 30.4 pg Mean Corpuscular Hemoglobin Concent 33.3 g/dl Platelet Count 210 K/uL Mean Platelet Volume 10.8 fL Neutrophils (%) (Auto) 66.9 % Lymphocytes (%) (Auto) 21.3 % Monocytes (%) (Auto) 8.2 % Eosinophils (%) (Auto) 3.0 % Basophils (%) (Auto) 0.4 % Neutrophils # (Auto) 3.78 K/uL Lymphocytes # (Auto) 1.20 K/uL Monocytes # (Auto) 0.46 K/uL Eosinophils # (Auto) 0.17 K/uL Basophils # (Auto) 0.02 K/uL RDW Standard Deviation 44.6 fL RDW Coefficient of Variation 13.4 % Immature Granulocyte % (Auto) 0.2 % Immature Granulocyte # (Auto) 0.01 K/uL Prothrombin Time 10.7 SECONDS Prothromb Time International Ratio 1.0 Activated Partial Thromboplast Time 24.7 SECONDS Partial Thromboplastin Ratio 1.0 Sodium Level 142 mmol/L Potassium Level 4.2 mmol/L Chloride Level 109 mmol/L Carbon Dioxide Level 25 mmol/L Anion Gap 8.0 mmol/L 16.0 mmol/L Blood Urea Nitrogen 31 mg/dl Creatinine 0.99 mg/dl Est Creatinine Clear Calc Drug Dose 31.9 ml/min Estimated GFR () 58.6 Estimated GFR (Non- 50.5 BUN/Creatinine Ratio 31.5 Random Glucose 80 mg/dl Calcium Level 9.5 mg/dl Total Bilirubin 0.7 mg/dl Direct Bilirubin 0.1 mg/dl Aspartate Amino Transf (AST/SGOT) 22 U/L Alanine Aminotransferase (ALT/SGPT) 25 U/L Alkaline Phosphatase 101 U/L Creatine Kinase MB 4.5 ng/ml Creatine Kinase MB Ratio Troponin I < 0.015 ng/ml Total Protein 7.6 gm/dl Albumin 3.6 gm/dl Lipase 172 U/L Bedside Hemoglobin 12.6 g/dl Bedside Hematocrit 37 % Bedside Sodium 142 mEq/L Bedside Potassium 4.2 mEq/L Bedside Chloride 107 mEq/L Bedside Total CO2 24 mEq/l Bedside Blood Urea Nitrogen 30 mg/dl Bedside Creatinine 0.9 mg/dl Bedside Glucose (other) 84 mg/dl Bedside Ionized Calcium (Jaime) 1.16 mmol/l Urine Color YELLOW Urine Appearance CLEAR Urine pH >= 9.0 Urine Specific [place] 1.012 Urine Protein NEG Urine Glucose (UA) NEG Urine Ketones NEG Urine Occult Blood NEG Urine Nitrite NEG Urine Bilirubin NEG Urine Urobilinogen NEG Urine Leukocyte Esterase TRACE Urine WBC (Auto) 1-5 /hpf Urine RBC (Auto) 0-4 /hpf Urine Hyaline Casts (Auto) 0 /lpf Urine Epithelial Cells (Auto) 5-10 /lpf Urine Bacteria (Auto) NEG Assessment & Plan Monihsa Donahue is an 89 year old woman with A fib (on ASA 81mg only, no other anticoagulation), hx of PE, hypothyroidism, osteoporosis, history of rectal cancer s/p chemo, radiation and endoscopic resection who presents with painless rectal bleeding, which started early this morning. She is not anticoagulated ( INR 1.0). Bleeding seems to have stopped - no bright red blood present on rectal exam. Vitals remain stable and normal; Hgb 11.8 on admission. -No acute surgical intervention indicated at this time -Trend vitals and Hgb level -If bleeding recurs, consider colonoscopy (GI consulted as well, will defer to their team) -NPO for now, IVF hydration -Pain / nausea control if needed -Rest of care per primary team -Will continue to follow Milli Jack MD 02/24/17
[2017-02-24] MEDS: NSS + 20MEQ KCL 1000ML 1,000 ML IV SCH ×2 (13:51→23:30)
[2017-02-24 14:37] LABS: HEMATOCRIT 30.5 % (37-47)
[2017-02-24] MEDS: AMIODARONE 200 MG TAB PO SCH (15:47)
[2017-02-24] MEDS: MIRTAZAPINE TAB 15 MG TAB PO SCH (20:38)
[2017-02-24] MEDS ORDERED: PANTOprazole INJ 40 MG in SYRINGE 0 ML IV SCH (21:00)
[2017-02-25 03:22] VITALS: BP 148/92; PULSE 70; TEMP 36.9; O2SAT 97
[2017-02-25 06:27] LABS: HEMATOCRIT 31.5 % (37-47)
[2017-02-25 07:02] LABS: BUN/CREATININE RATIO 21.3 (10-20); CALCIUM 8.2 mg/dl (8.5-10.1); CREATININE 0.8 mg/dl (0.60-1.20); MAGNESIUM 2.2 mg/dl (1.8-2.4); POTASSIUM 4.5 mmol/L (3.5-5.1)
[2017-02-25 07:06] LABS: CHOLESTEROL/HDL RATIO 2.9
[2017-02-25 07:52] VITALS: BP 169/66; PULSE 64; TEMP 36.7; O2SAT 96
--- NOTE | 2017-02-25 08:16 | Surgery Progress Note ---
Surgery Progress Note Date of Service Feb 25, 2017. Subjective Patient examined at bedside this morning. Afebrile, vitals stable on room air, no acute events overnight. States she has some RLQ tenderness when lying in certain positions - otherwise denies abdominal pain. Has not had any further BMs since the ED, has not noticed any rectal bleeding since arriving to the floor. Has only been out of bed to ambulate to bathroom, no dizziness noted with ambulation. Currently denies lightheaded / dizziness, headaches, chest pain, SOB. Urinating without difficultyNo complaints this morning. Objective Vital Signs: Date Time Temp Pulse Resp B/P (MAP) Pulse Ox O2 Delivery O2 Flow Rate FiO2 02/25/17 07:52 36.7 64 18 169/66 (100) 96 Room Air 02/25/17 04:00 Room Air 02/25/17 03:22 36.9 70 15 148/92 (110) 97 Room Air 02/24/17 23:59 Room Air 02/24/17 23:13 36.7 65 18 146/67 (93) 94 Room Air 02/24/17 20:00 Room Air 02/24/17 19:14 36.4 66 16 169/69 (102) 95 Room Air 02/24/17 16:00 Room Air 02/24/17 15:59 36.6 63 20 112/55 (74) 97 Room Air 02/24/17 13:57 61 143/62 (89) 95 Room Air 02/24/17 12:13 36.3 63 18 156/69 (98) 96 Room Air 02/24/17 12:00 96 02/24/17 11:50 64 18 163/67 96 02/24/17 11:08 65 02/24/17 10:15 98 Room Air 02/24/17 10:11 68 20 150/65 98 Room Air 02/24/17 08:17 95 Room Air 02/24/17 08:15 36.9 69 16 171/95 96 Room Air 02/24/17 08:14 67 General Appearance: WD/WN, no apparent distress Head: normocephalic, atraumatic Neck: supple Respiratory/Chest: lungs clear, normal breath sounds Cardiovascular: regular rate, rhythm Abdomen: normal bowel sounds, non distended, soft (No rebound / guarding), + tenderness (Mildly tender to palpation in right lower quadrant) Laboratory Results: Results Past 24 Hours Test 02/24/17 08:20 02/24/17 08:24 02/24/17 08:26 02/24/17 10:43 Range/Units White Blood Count 5.64 4.8-10.8 K/uL Red Blood Count 3.88 4.2-5.4 M/uL Hemoglobin 11.8 12.0-16.0 g/dL Hematocrit 35.4 37-47 % Mean Corpuscular Volume 91.2 80-100 fL Mean Corpuscular Hemoglobin 30.4 25-34 pg Mean Corpuscular Hemoglobin Concent 33.3 32-36 g/dl Platelet Count 210 130-400 K/uL Mean Platelet Volume 10.8 7.4-10.4 fL Neutrophils (%) (Auto) 66.9 % Lymphocytes (%) (Auto) 21.3 % Monocytes (%) (Auto) 8.2 % Eosinophils (%) (Auto) 3.0 % Basophils (%) (Auto) 0.4 % Neutrophils # (Auto) 3.78 1.4-6.5 K/uL Lymphocytes # (Auto) 1.20 1.2-3.4 K/uL Monocytes # (Auto) 0.46 0.11-0.59 K/uL Eosinophils # (Auto) 0.17 0-0.5 K/uL Basophils # (Auto) 0.02 0-0.2 K/uL RDW Standard Deviation 44.6 36.4-46.3 fL RDW Coefficient of Variation 13.4 11.5-14.5 % Immature Granulocyte % (Auto) 0.2 % Immature Granulocyte # (Auto) 0.01 0.00-0.02 K/uL Prothrombin Time 10.7 9.0-12.0 SECONDS Prothromb Time International Ratio 1.0 0.9-1.1 Activated Partial Thromboplast Time 24.7 21.0-31.0 SECONDS Partial Thromboplastin Ratio 1.0 Sodium Level 142 136-145 mmol/L Potassium Level 4.2 3.5-5.1 mmol/L Chloride Level 109 98-107 mmol/L Carbon Dioxide Level 25 21-32 mmol/L Anion Gap 8.0 16.0 16-25 mmol/L Blood Urea Nitrogen 31 7-18 mg/dl Creatinine 0.99 0.60-1.20 mg/dl Est Creatinine Clear Calc Drug Dose 31.9 ml/min Estimated GFR () 58.6 Estimated GFR (Non- 50.5 BUN/Creatinine Ratio 31.5 10-20 Random Glucose 80 70-99 mg/dl Calcium Level 9.5 8.5-10.1 mg/dl Total Bilirubin 0.7 0.2-1 mg/dl Direct Bilirubin 0.1 0-0.2 mg/dl Aspartate Amino Transf (AST/SGOT) 22 15-37 U/L Alanine Aminotransferase (ALT/SGPT) 25 12-78 U/L Alkaline Phosphatase 101 45-117 U/L Creatine Kinase MB 4.5 0.5-3.6 ng/ml Creatine Kinase MB Ratio 0-3.0 Troponin I < 0.015 0-0.045 ng/ml Total Protein 7.6 6.4-8.2 gm/dl Albumin 3.6 3.4-5.0 gm/dl Lipase 172 73-393 U/L Bedside Hemoglobin 12.6 12.0-16.0 g/dl Bedside Hematocrit 37 37-47 % Bedside Sodium 142 135-144 mEq/L Bedside Potassium 4.2 3.3-5.0 mEq/L Bedside Chloride 107 101-112 mEq/L Bedside Total CO2 24 24-31 mEq/l Bedside Blood Urea Nitrogen 30 7-18 mg/dl Bedside Creatinine 0.9 0.6-1.3 mg/dl Bedside Glucose (other) 84 70-99 mg/dl Bedside Ionized Calcium (Jaime) 1.16 1.12-1.32 mmol/l Urine Color YELLOW Urine Appearance CLEAR CLEAR Urine pH >= 9.0 4.5-7.5 Urine Specific [place] 1.012 1.000-1.030 Urine Protein NEG NEG Urine Glucose (UA) NEG NEG Urine Ketones NEG NEG Urine Occult Blood NEG NEG Urine Nitrite NEG NEG Urine Bilirubin NEG NEG Urine Urobilinogen NEG NEG Urine Leukocyte Esterase TRACE NEG Urine WBC (Auto) 1-5 0-5 /hpf Urine RBC (Auto) 0-4 0-4 /hpf Urine Hyaline Casts (Auto) 0 0-5 /lpf Urine Epithelial Cells (Auto) 5-10 0-5 /lpf Urine Bacteria (Auto) NEG NEG Test 02/24/17 14:04 02/24/17 21:47 02/25/17 06:02 Range/Units Hemoglobin 9.8 10.0 10.0 12.0-16.0 g/dL Hematocrit 30.5 33.0 31.5 37-47 % Sodium Level 144 136-145 mmol/L Potassium Level 4.5 3.5-5.1 mmol/L Chloride Level 114 98-107 mmol/L Carbon Dioxide Level 27 21-32 mmol/L Anion Gap 3.0 3-11 mmol/L Blood Urea Nitrogen 17 7-18 mg/dl Creatinine 0.80 0.60-1.20 mg/dl Est Creatinine Clear Calc Drug Dose 35.9 ml/min Estimated GFR () 75.8 Estimated GFR (Non- 65.4 BUN/Creatinine Ratio 21.3 10-20 Random Glucose 79 70-99 mg/dl Calcium Level 8.2 8.5-10.1 mg/dl Magnesium Level 2.2 1.8-2.4 mg/dl Triglycerides Level 76 0-150 mg/dl Cholesterol Level 132 0-200 mg/dl HDL Cholesterol 45 mg/dl LDL Cholesterol, Calculated 72 mg/dl VLDL Cholesterol, Calculated 15 mg/dl Cholesterol/HDL Ratio 2.9 Hemoglobin remains stable on serial labs Assessment & Plan Monisha Donahue is an 89 year old woman with A fib (on ASA 81mg only, no other anticoagulation), hx of PE, hypothyroidism, osteoporosis, history of rectal cancer s/p chemo, radiation and endoscopic resection who presents with painless rectal bleeding, which has ceased since hospital admission. Vitals remain stable and normal; Hgb has been stable on serial labs. She has not yet had a BM since admission to the floor. -No acute surgical intervention indicated at this time -Continue to trend vitals and serial Hgb levels -If bleeding recurs, consider colonoscopy (GI following as well, will defer to their team) -OK to trial clear liquids from surgical standpoint, would continue IVF until PO intake is adequate -Pain / nausea control if needed -Rest of care per primary team -Will continue to follow Milli Jack MD 02/25/17
--- NOTE | 2017-02-25 08:43 | Gastroenterology Progress Note ---
Progress Note Date of Service: Feb 25, 2017 Subjective Pt evaluation today including: conversation w/ patient, physical exam, chart review, lab review, review of inpatient medication list Pt did well overnight. Small BM this AM w/o rectal bleeding. C/o slight LLQ abd discomfort but no n/v, denies fever, chills. H/H stable, Hgb dropped 1 pt Review of Systems Constitutional: No fever, No chills Respiratory: No cough, No shortness of breath Cardiac: No chest pain, No edema Abdomen: + pain (LLQ), No nausea, No vomiting, No GI bleeding Medications Current Inpatient Medications Medications (Trade) Dose Ordered Sig/Dariela Route Start Time Stop Time Status Last Admin Dose Admin Potassium Chloride/Sodium Chloride 1,000 ml @ 100 mls/hr Q10H IV 02/24/17 12:30 03/26/17 12:29 02/24/17 23:30 100 MLS/HR Acetaminophen (Tylenol Tab) 650 mg Q4H PRN PO 02/24/17 10:45 03/26/17 10:44 Al Hydrox/Mg Hydrox/Simethicone (Maalox Max Susp) 15 ml Q4H PRN PO 02/24/17 10:45 03/26/17 10:44 Magnesium Hydroxide (Milk Of Magnesia Susp) 30 ml Q12H PRN PO 02/24/17 10:45 03/26/17 10:44 Zolpidem Tartrate (Ambien Tab) 5 mg HSZ PRN PO 02/24/17 10:45 03/26/17 10:44 Ondansetron HCl (Zofran Inj) 4 mg Q6H PRN IV 02/24/17 10:45 03/26/17 10:44 Amiodarone HCl (Cordarone Tab) 200 mg MoWeFr PO 02/24/17 13:00 03/26/17 12:59 02/24/17 15:47 200 MG Lorazepam (Ativan Tab) 0.5 mg DAILY PRN PO 02/24/17 11:15 03/26/17 11:14 Mirtazapine (Remeron Tab) 15 mg HS PO 02/24/17 21:00 03/26/17 20:59 02/24/17 20:38 15 MG Levothyroxine Sodium 37.5 mcg/ Syringe 1.875 ml @ 2 mls/min DAILY@09 IV 02/25/17 09:00 03/27/17 08:59 Pantoprazole Sodium 40 mg/ Syringe 10 ml @ 5 mls/min DAILY@, IV 02/24/17 21:00 03/26/17 20:59 02/24/17 21:49 5 MLS/MIN Objective Vital Signs Date Time Temp Pulse Resp B/P (MAP) Pulse Ox O2 Delivery O2 Flow Rate FiO2 02/25/17 07:52 36.7 64 18 169/66 (100) 96 Room Air 02/25/17 04:00 Room Air 02/25/17 03:22 36.9 70 15 148/92 (110) 97 Room Air 02/24/17 23:59 Room Air 02/24/17 23:13 36.7 65 18 146/67 (93) 94 Room Air 02/24/17 20:00 Room Air 02/24/17 19:14 36.4 66 16 169/69 (102) 95 Room Air 02/24/17 16:00 Room Air 02/24/17 15:59 36.6 63 20 112/55 (74) 97 Room Air 02/24/17 13:57 61 143/62 (89) 95 Room Air 02/24/17 12:13 36.3 63 18 156/69 (98) 96 Room Air 02/24/17 12:00 96 02/24/17 11:50 64 18 163/67 96 02/24/17 11:08 65 02/24/17 10:15 98 Room Air 02/24/17 10:11 68 20 150/65 98 Room Air Physical Exam General Appearance: WD/WN, no apparent distress Eyes: normal inspection, PERRL, EOMI Neck: supple, no JVD, trachea midline Respiratory/Chest: normal breath sounds, no respiratory distress, no accessory muscle use Cardiovascular: regular rate, rhythm, no gallop, no murmur Abdomen: soft, + abnormal bowel sounds (hypoactive), + tenderness (LLQ) Extremities: normal inspection, no pedal edema, no calf tenderness Neurologic/Psych: alert, normal mood/affect, oriented x 3 Skin: normal color, no jaundice, no rash Laboratory Results Last 24 Hours Test 02/24/17 10:43 02/24/17 14:04 02/24/17 21:47 02/25/17 06:02 Creatine Kinase MB Ratio Hemoglobin 9.8 g/dL 10.0 g/dL 10.0 g/dL Hematocrit 30.5 % 33.0 % 31.5 % Sodium Level 144 mmol/L Potassium Level 4.5 mmol/L Chloride Level 114 mmol/L Carbon Dioxide Level 27 mmol/L Anion Gap 3.0 mmol/L Blood Urea Nitrogen 17 mg/dl Creatinine 0.80 mg/dl Est Creatinine Clear Calc Drug Dose 35.9 ml/min Estimated GFR () 75.8 Estimated GFR (Non- 65.4 BUN/Creatinine Ratio 21.3 Random Glucose 79 mg/dl Calcium Level 8.2 mg/dl Magnesium Level 2.2 mg/dl Triglycerides Level 76 mg/dl Cholesterol Level 132 mg/dl HDL Cholesterol 45 mg/dl LDL Cholesterol, Calculated 72 mg/dl VLDL Cholesterol, Calculated 15 mg/dl Cholesterol/HDL Ratio 2.9 Assessment and Plan Patient is a 89 year old female w painless rectal bleeding. Hx of rectal ca in , + severe diverticulosis. Previously had similar presentation of rectal bleeding in November 2015 suspected to be either hemorrhoidal or diverticular in nature. Colonoscopy unable to be fully completed due to diverticular narrowing. Suspect this time another diverticular bleed. H/H stable, no more rectal bleeding since admission. Plans - Monitor H/H and transfuse prn - Check Cdiff and stool cx to r/o infectious processes. - No need for PPI gtt; ok for Protonix 40mg PO BID. - Supportive management - Will watch peripherally, call if new questions or concerns arise. Attg addendum: I interviewed and examined this pt, reviewed chart and labs. Pt with presumed diverticular bleeding, now with stable hgb and no rectal bleeding. Bulmaro PO. Cont to follow hgb. she is ok for d/c if she has no bleeding for 48 hours. Please call us if she has recurrent bleeding; would consider bleeding scan.
[2017-02-25] MEDS ORDERED: LEVOTHYROXINE SODIUM INJ 37.5 MCG in SYRINGE 0 ML IV SCH (09:00)
[2017-02-25] MEDS: PANTOprazole SOD 40 MG TAB PO SCH ×2 (09:47→21:58)
[2017-02-25] MEDS: NSS + 20MEQ KCL 1000ML 1,000 ML IV SCH ×2 (09:48→21:57)
[2017-02-25] MEDS ORDERED: PANTOprazole INJ 40 MG in SYRINGE 0 ML IV SCH (11:00)
[2017-02-25 12:00] VITALS: BP 145/75; PULSE 66; TEMP 36.8; O2SAT 97
[2017-02-25] MEDS ORDERED: NURSING VERBAL MED ORDER ONE (12:45)
[2017-02-25 14:06] LABS: HEMATOCRIT 29.8 % (37-47)
--- NOTE | 2017-02-25 16:27 | Progress Note ---
Subjective Date of Service: Feb 25, 2017. Subjective Pt evaluation today including: conversation w/ patient, conversation w/ family , physical exam, chart review, lab review, review of studies, conversation w/ art consultant, review of inpatient medication list In bed, rest, looks much better than yesterday, no complaining, reported this morning has bowel movement, no blood in the stool Problem List Medical Problems: (1) GI bleed Status: Acute (2) GI bleed Status: Acute (3) Lower GI bleed Status: Acute Review of Systems Constitutional: + weakness, + fatigue, No fever, No chills, No sweats, No weight loss, No problem reported Eyes: No worsening of vision, No eye pain, No redness, No discharge, No diplopia ENT: No hearing loss, No unusual epistaxis, No nasal symptoms, No sore throat, No tinnitus, No dental problems, No trouble swallowing Respiratory: No cough, No sputum, No wheezing, No shortness of breath, No dyspnea on exertion, No dyspnea at rest, No hemoptysis Cardiac: No chest pain, No orthopnea, No PND, No edema, No claudication, No palpitations Abdomen: No pain, No nausea, No vomiting, No diarrhea, No constipation Musculoskeletal: No joint pain, No muscle pain, No swelling, No calf pain Female : No dysuria, No urinary frequency, No hematuria, No incontinence, No abnormal vaginal bleeding, No vaginal discharge Neurologic: No memory loss, No paralysis, No weakness, No numbness/tingling, No vertigo, No balance problems Psychiatric: No depression symptoms, No anhedonism, No anxiety, No insomnia, No substance abuse Heme: No abnormal bleeding/bruising, No clotting problems, No swollen lymph nodes, No night sweats Endo: No fatigue, No excessive thirst, No excessive urination Skin: No rash, No itch, No new/changing skin lesions, No color change, No bleeding Objective Vital Signs Date Time Temp Pulse Resp B/P (MAP) Pulse Ox O2 Delivery O2 Flow Rate FiO2 02/25/17 12:00 Room Air 02/25/17 12:00 36.8 66 18 145/75 (98) 97 Room Air 02/25/17 08:00 Room Air 02/25/17 07:52 36.7 64 18 169/66 (100) 96 Room Air 02/25/17 04:00 Room Air 02/25/17 03:22 36.9 70 15 148/92 (110) 97 Room Air 02/24/17 23:59 Room Air 02/24/17 23:13 36.7 65 18 146/67 (93) 94 Room Air 02/24/17 20:00 Room Air 02/24/17 19:14 36.4 66 16 169/69 (102) 95 Room Air Physical Exam General Appearance: WD/WN, no apparent distress, + thin, + pertinent finding ( mild pale) Eyes: normal inspection, PERRL, EOMI, sclerae normal ENT: normal ENT inspection, hearing grossly normal, pharynx normal Neck: supple, no adenopathy, thyroid normal, no JVD, no carotid bruits, trachea midline Respiratory/Chest: chest non-tender, lungs clear, normal breath sounds, no respiratory distress, no accessory muscle use Cardiovascular: regular rate, rhythm, no edema, no gallop, no JVD, no murmur Abdomen: normal bowel sounds, non tender, soft, no organomegaly, no pulsatile mass Extremities: normal range of motion, non-tender, normal inspection, no pedal edema, no calf tenderness, normal capillary refill, pelvis stable 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, no motor/sensory deficits, alert, normal mood/affect, oriented x 3 Skin: normal color, warm/dry, no rash Lymphatic: no adenopathy Laboratory Results Last 24 Hours Test 02/24/17 21:47 02/25/17 06:02 02/25/17 13:55 Hemoglobin 10.0 g/dL 10.0 g/dL 9.8 g/dL Hematocrit 33.0 % 31.5 % 29.8 % Sodium Level 144 mmol/L Potassium Level 4.5 mmol/L Chloride Level 114 mmol/L Carbon Dioxide Level 27 mmol/L Anion Gap 3.0 mmol/L Blood Urea Nitrogen 17 mg/dl Creatinine 0.80 mg/dl Est Creatinine Clear Calc Drug Dose 35.9 ml/min Estimated GFR () 75.8 Estimated GFR (Non- 65.4 BUN/Creatinine Ratio 21.3 Random Glucose 79 mg/dl Calcium Level 8.2 mg/dl Magnesium Level 2.2 mg/dl Triglycerides Level 76 mg/dl Cholesterol Level 132 mg/dl HDL Cholesterol 45 mg/dl LDL Cholesterol, Calculated 72 mg/dl VLDL Cholesterol, Calculated 15 mg/dl Cholesterol/HDL Ratio 2.9 Assessment and Plan 89-year-old with history of rectal cancer was admitted on 02/24/2017 because of lower gastrointestinal bleeding lower gastrointestinal bleeding, H&H need to be stable Abdominal CT studies, possible hemorrhage into diverticulum cannot be excluded, GI and surgeon on the case, just follow up and watch, and supportive care for now Per GI, presumed diverticular bleeding, , maybe ok for d/c if she has no bleeding for 48 hours. bleeding scan has ordered Was mild confused prior to the Emergency Room visit, totally resolved. 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 Continue current care with oral Protonix Gastrointestinal prophylaxis will be Protonix. DVT prophylaxis is SCD. No heparin product because is contraindicated. full code Possible discharge home tomorrow Continued [facility] stay due to: multiple IV medications needed Discharge planning: home
[2017-02-25 21:20] VITALS: BP 154/84; PULSE 69; TEMP 37; O2SAT 96
--- NOTE | 2017-02-25 21:26 | DIAGNOSTIC IMAGING REPORT ---
GI BLEEDING SCAN CLINICAL HISTORY: 89 years-old Female presenting with lower gi bleeding. TECHNIQUE: Following the IV administration of 27.8 mCi of technetium 99m UltraTag labeled red blood cells, nuclear bleeding scan was performed. Anterior flow images were obtained every 2 seconds for a total 48 seconds. Anterior static images were obtained every 5 minutes for a total of 60 minutes. COMPARISON: None. FINDINGS: Initial dynamic flow imaging demonstrates expected radiotracer within the vasculature as well as in the liver and spleen. Subsequent static imaging demonstrates progressive bladder activity, which does not significantly limit the examination. No convincing evidence of radiotracer in the expected distribution of the bowel to suggest active gastrointestinal hemorrhage. IMPRESSION: No evidence of gastrointestinal bleed. Electronically signed by: Rudy Erickson M.D. 02/25/2017 9:25 PM Dictated Date/Time: 02/25/2017 9:20 PM
[2017-02-25] MEDS: MIRTAZAPINE TAB 15 MG TAB PO SCH (21:57)
[2017-02-25 22:23] LABS: HEMATOCRIT 32.5 % (37-47)
[2017-02-26] VITALS (7 sets, daily range): BP systolic 131–192; BP diastolic 65–84; PULSE 66–74; TEMP 36.5–37.1; O2SAT 94–97
[2017-02-26] MEDS: LEVOTHYROXINE 75 MCG TAB PO SCH (05:35)
[2017-02-26] MEDS: NSS + 20MEQ KCL 1000ML 1,000 ML IV SCH (05:35)
[2017-02-26 06:20] LABS: CREATININE 0.78 mg/dl (0.60-1.20); MAGNESIUM 2.1 mg/dl (1.8-2.4); POTASSIUM 4.2 mmol/L (3.5-5.1)
--- NOTE | 2017-02-26 06:51 | DIAGNOSTIC IMAGING REPORT ---
BILIARY ULTRASOUND CLINICAL HISTORY: right upper quadrant abdominal pain COMPARISON STUDY: No previous studies for comparison. FINDINGS: The pancreas appears normal as visualized. No focal hepatic masses are visualized. There is no right-sided hydronephrosis. There is a prominent right renal pelvis. There is an 11 mm upper pole right renal cyst. The common bile duct measures 7 mm. The gallbladder surgically absent. IMPRESSION: 1. Surgically absent gallbladder 2. 7 mm common bile duct 3. Mildly prominent right renal pelvis Electronically signed by: Cipriano Nolasco M.D. 02/26/2017 6:50 AM Dictated Date/Time: 02/26/2017 6:48 AM
--- NOTE | 2017-02-26 07:49 | Surgery Progress Note ---
Surgery Progress Note Date of Service Feb 26, 2017. Subjective Patient examined at bedside this morning. Afebrile, hypertensive overnight - otherwise breathing comfortably on room air, no acute events. Feels well this morning. Still has a dull ache in RLQ, but otherwise denies abdominal pain. Had several BMs yesterday, per patient she did not notice any gross blood or rectal bleeding. Hgb has remained stable. She is tolerating food for breakfast this morning, denies N/V. Ambulating and voiding without difficulty. Objective Vital Signs: Date Time Temp Pulse Resp B/P (MAP) Pulse Ox O2 Delivery O2 Flow Rate FiO2 02/26/17 04:22 36.5 73 18 161/82 (108) 97 Room Air 02/26/17 04:00 Room Air 02/26/17 00:42 36.6 74 16 192/82 (118) 94 Room Air 02/25/17 23:59 Room Air 02/25/17 21:20 37.0 69 18 154/84 (107) 96 Room Air 02/25/17 21:10 Room Air 02/25/17 16:00 Room Air 02/25/17 12:00 Room Air 02/25/17 12:00 36.8 66 18 145/75 (98) 97 Room Air 02/25/17 08:00 Room Air 02/25/17 07:52 36.7 64 18 169/66 (100) 96 Room Air General Appearance: WD/WN, no apparent distress Head: normocephalic, atraumatic Neck: supple Respiratory/Chest: lungs clear, normal breath sounds Cardiovascular: regular rate, rhythm Abdomen: normal bowel sounds, non tender, non distended, soft Laboratory Results: Results Past 24 Hours Test 02/25/17 13:55 02/25/17 22:06 02/26/17 05:29 Range/Units Hemoglobin 9.8 10.3 12.0-16.0 g/dL Hematocrit 29.8 32.5 37-47 % Sodium Level 145 136-145 mmol/L Potassium Level 4.2 3.5-5.1 mmol/L Chloride Level 116 98-107 mmol/L Carbon Dioxide Level 26 21-32 mmol/L Anion Gap 3.0 3-11 mmol/L Blood Urea Nitrogen 12 7-18 mg/dl Creatinine 0.78 0.60-1.20 mg/dl Est Creatinine Clear Calc Drug Dose 36.9 ml/min Estimated GFR () 78.1 Estimated GFR (Non- 67.4 BUN/Creatinine Ratio 16.0 10-20 Random Glucose 81 70-99 mg/dl Calcium Level 8.0 8.5-10.1 mg/dl Magnesium Level 2.1 1.8-2.4 mg/dl Microbiology Results 02/25/17 C.difficile Toxin B Gene (PCR) - Final, Complete No C. difficile toxin B gene detected 02/25/17 Shiga Toxin Test, Received Pending 02/25/17 Stool Culture, Received Pending Assessment & Plan Monisha Donahue is an 89 year old woman with A fib (on ASA 81mg only, no other anticoagulation), hx of PE, hypothyroidism, osteoporosis, history of rectal cancer s/p chemo, radiation and endoscopic resection who presents with painless rectal bleeding, which has ceased since hospital admission. Vitals remain stable and normal (except for hypertensive episode overnight); Hgb has been stable on serial labs. Multiple BMs yesterday without gross blood noted. -No acute surgical intervention indicated at this time -If bleeding recurs, consider colonoscopy (GI following as well, will defer to their team) -Diet as tolerated -Rest of care per primary team -General Surgery will sign off. Please call with any further concerns or questions. Milli Jack MD 02/26/17
[2017-02-26] MEDS: PANTOprazole SOD 40 MG TAB PO SCH ×2 (08:29→19:24)
--- NOTE | 2017-02-26 12:18 | Progress Note ---
Subjective Date of Service: Feb 26, 2017. Subjective Pt evaluation today including: conversation w/ patient, conversation w/ family , physical exam, chart review, lab review, review of studies, conversation w/ retail client solutions consultant, review of inpatient medication list Patient reported no any blood in the stool this morning during a bowel movement , feeling okay No complaint Problem List Medical Problems: (1) GI bleed Status: Acute (2) GI bleed Status: Acute (3) Lower GI bleed Status: Acute Review of Systems Constitutional: + weakness, + fatigue, No fever, No chills, No sweats, No weight loss, No problem reported Eyes: No worsening of vision, No eye pain, No redness, No discharge, No diplopia ENT: No hearing loss, No unusual epistaxis, No nasal symptoms, No sore throat, No tinnitus, No dental problems, No trouble swallowing Respiratory: No cough, No sputum, No wheezing, No shortness of breath, No dyspnea on exertion, No dyspnea at rest, No hemoptysis Cardiac: No chest pain, No orthopnea, No PND, No edema, No claudication, No palpitations Abdomen: No pain, No nausea, No vomiting, No diarrhea, No constipation Musculoskeletal: No joint pain, No muscle pain, No swelling, No calf pain Female : No dysuria, No urinary frequency, No hematuria, No incontinence, No abnormal vaginal bleeding, No vaginal discharge Neurologic: No memory loss, No paralysis, No weakness, No numbness/tingling, No vertigo, No balance problems Psychiatric: No depression symptoms, No anhedonism, No anxiety, No insomnia, No substance abuse Heme: No abnormal bleeding/bruising, No clotting problems, No swollen lymph nodes, No night sweats Endo: No fatigue, No excessive thirst, No excessive urination Skin: No rash, No itch, No new/changing skin lesions, No color change, No bleeding Objective Vital Signs Date Time Temp Pulse Resp B/P (MAP) Pulse Ox O2 Delivery O2 Flow Rate FiO2 02/26/17 11:59 36.9 67 18 135/76 (95) 96 Room Air 02/26/17 08:00 36.6 73 18 158/65 (96) 94 Room Air 02/26/17 08:00 Room Air 02/26/17 04:22 36.5 73 18 161/82 (108) 97 Room Air 02/26/17 04:00 Room Air 02/26/17 00:42 36.6 74 16 192/82 (118) 94 Room Air 02/25/17 23:59 Room Air 02/25/17 21:20 37.0 69 18 154/84 (107) 96 Room Air 02/25/17 21:10 Room Air 02/25/17 16:00 Room Air Physical Exam General Appearance: WD/WN, no apparent distress, + thin, + pertinent finding ( frail) Eyes: normal inspection, PERRL, EOMI, sclerae normal ENT: normal ENT inspection, hearing grossly normal, pharynx normal Neck: supple, no adenopathy, thyroid normal, no JVD, no carotid bruits, trachea midline Respiratory/Chest: chest non-tender, lungs clear, normal breath sounds, no respiratory distress, no accessory muscle use Cardiovascular: regular rate, rhythm, no edema, no gallop, no JVD, no murmur Abdomen: normal bowel sounds, non tender, soft, no organomegaly, no pulsatile mass Extremities: normal range of motion, non-tender, normal inspection, no pedal edema, no calf tenderness, normal capillary refill, pelvis stable 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, no motor/sensory deficits, alert, normal mood/affect, oriented x 3 Skin: normal color, warm/dry, no rash Lymphatic: no adenopathy Laboratory Results Last 24 Hours Test 02/25/17 13:55 02/25/17 22:06 02/26/17 05:29 Hemoglobin 9.8 g/dL 10.3 g/dL Hematocrit 29.8 % 32.5 % Sodium Level 145 mmol/L Potassium Level 4.2 mmol/L Chloride Level 116 mmol/L Carbon Dioxide Level 26 mmol/L Anion Gap 3.0 mmol/L Blood Urea Nitrogen 12 mg/dl Creatinine 0.78 mg/dl Est Creatinine Clear Calc Drug Dose 36.9 ml/min Estimated GFR () 78.1 Estimated GFR (Non- 67.4 BUN/Creatinine Ratio 16.0 Random Glucose 81 mg/dl Calcium Level 8.0 mg/dl Magnesium Level 2.1 mg/dl Assessment and Plan 89-year-old with history of rectal cancer was admitted on 02/24/2017 because of lower gastrointestinal bleeding lower gastrointestinal bleeding, Seems resolved H&H need to be stable Abdominal CT studies, possible hemorrhage into diverticulum cannot be excluded, Surgeon saw the patient, no planning to have any procedure because patient has been stable GI on the case, Per GI, presumed diverticular bleeding, , maybe ok for d/c if she has no bleeding for 48 hours. bleeding scan has ordered, per report: "No evidence of gastrointestinal bleed." Patient got Cipro and Flagyl IV in the emergency known because of severe diverticulosis, patient C. difficile has checked was negative , discussed with GI , Feel no more need antibiotics Was mild confused prior to the Emergency Room visit, totally resolved. History of Afib, was on Coumadin until nausea Mild right upper quadrant pain yesterday No more pain today Right upper quadrant ultrasound was done; Per report: IMPRESSION: 1. Surgically absent gallbladder 2. 7 mm common bile duct 3. 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 DVT prophylaxis is SCD. No heparin product because is contraindicated. full code Discharge plan: increase activity, advance diet, follow-up H&H, possible discharge home tomorrow with planning to follow-up with GI in 1-2 week Continued [facility] stay due to: multiple IV medications needed Discharge planning: home
[2017-02-26] MEDS: AMIODARONE 200 MG TAB PO SCH (13:15)
[2017-02-26] MEDS: MIRTAZAPINE TAB 15 MG TAB PO SCH (20:43)
[2017-02-27] MEDS: LEVOTHYROXINE 75 MCG TAB PO SCH (05:46)
[2017-02-27 05:59] LABS: BASO % 0.7 %; BASO ABS # 0.04 K/uL (0-0.2); COMPLETE YES; EOS % 4.1 %; HEMATOCRIT 30.6 % (37-47); IG% 0.2 %; LYMPH % 19.9 %; LYMPH ABS # 1.11 K/uL (1.2-3.4); MEAN CELL VOLUME 92.4 fL (80-100); MEAN CORPUSCULAR HEMOGLOBIN 30.2 pg (25-34); MEAN CORPUSCULAR HGB CONC 32.7 g/dl (32-36); MEAN PLATELET VOLUME 10.3 fL (7.4-10.4); MONO % 8.1 %; PLATELET COUNT 160 K/uL (130-400); RED BLOOD COUNT 3.31 M/uL (4.2-5.4); WHITE BLOOD COUNT 5.57 K/uL (4.8-10.8)
[2017-02-27 06:25] LABS: BUN/CREATININE RATIO 26.5 (10-20); CALCIUM 8.1 mg/dl (8.5-10.1); CREATININE 0.86 mg/dl (0.60-1.20); POTASSIUM 3.9 mmol/L (3.5-5.1)
[2017-02-27 07:31] VITALS: BP 159/78; PULSE 69; TEMP 36.5; O2SAT 97
[2017-02-27] MEDS ORDERED: PRT40 PO (07:42)
--- NOTE | 2017-02-27 07:45 | Discharge Instructions ---
Discharge Instructions Date of Service Feb 27, 2017. Admission Reason for Admission: Rectal Bleeding Discharge Discharge Diagnosis / Problem: rectal bleeding with history of rectal cancer Discharge Goals Goal(s): Decrease discomfort, Improve function, Increase independence, Improve disease control, Improve nutritional status, Learn about illness, Diagnostic testing, Therapeutic intervention, Prevent Disease Progression, Specific goals Activity Recommendations Activity Limitations: resume your previous activity . 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 - call your primary care physician OR go to local emergency room if has any fever/chill, chest pain, blood in stool, shortness of breathing, nausea/vomiting /abdominal pain, facial droop/slurry speech/local weakness, or if has any questions. - fall precaution - diet as instructed - you need to follow up with your subspecialist - you should understand that it is important to follow up the above instruction , and "not following the above instruction" may cause delayed or missed care of your medical conditions which may cause permanent organ damage and even . Current Hospital Diet Patient's current hospital diet: AHA Diet (Heart Healthy) Discharge Diet Recommended Diet: Regular Diet Procedures Procedures Performed: no Pending Studies Studies pending at discharge: no Laboratory Results Lipid Panel Test 02/25/17 06:02 Range/Units Triglycerides Level 76 0-150 mg/dl Cholesterol Level 132 0-200 mg/dl HDL Cholesterol 45 mg/dl Cholesterol/HDL Ratio 2.9 LDL Cholesterol, Calculated 72 mg/dl Medical Emergencies . Who to Call and When: Medical Emergencies: If at any time you feel your situation is an emergency, please call 911 immediately. . Non-Emergent Contact Non-Emergency issues call your: Primary Care Provider, Fire Engine Operator . . "Provider Documentation" section prepared by Huan Vargas. . VTE Core Measure Inpt VTE Proph given/why not?: Contraindicated
[2017-02-27 09:08] VITALS: BP 159/78; PULSE 69; TEMP 36.5; O2SAT 97
[2017-02-27] MEDS: PANTOprazole SOD 40 MG TAB PO SCH (09:14)
--- NOTE | 2017-02-27 15:32 | Discharge Summary ---
Discharge Summary Date of Service Feb 27, 2017. 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, Immunizations: Have You Had Influenza Vaccine: No History of Tetanus Vaccine?: No History of Pneumococcal: Yes Pneumococcal Date: Mar 04, 2011 History of Hepatitis B Vaccine: No Procedures: No Consultations: GI Medication Reconciliation New Medications: Pantoprazole (Pantoprazole Sodium) 40 Mg Tab 40 MG PO DAILY for 14 Days, TAB Continued Medications: Amiodarone HCl (Amiodarone HCl) 200 Mg Tab 200 MG PO MWF Ascorbic Acid (Ascorbic Acid) 500 Mg Tab 500 MG PO BID, TAB Calcium Carbonate-Vitamin D (Calcium 500 + D) 1 Tab Tab 1 TAB PO DAILY Cholecalciferol (Vitamin D3) 1,000 Unit Tab 1000 UNIT PO DAILY Levothyroxine Sodium (Levothyroxine Sodium) 75 Mcg Tab 75 MCG PO DAILY Lorazepam (Ativan) 0.5 Mg Tab 0.5 MG PO DAILY PRN for Anxiety, TAB Magnesium Oxide (Magnesium) 250 Mg Tab 250 MG PO DAILY Mirtazapine (Remeron) 15 Mg Tab 15 MG PO HS for Sleep Multiple Vitamin (Multivitamin) 1 Tab Tab 1 TAB PO DAILY, TAB Multiple Vitamins W/ Minerals (Preservision Areds) 1 Cap Cap 1 CAP PO BID Vitamin B Cmplx/Vitc/Folic Ac (Nephrocaps) Cap 1 CAP PO QAM Discontinued Medications: Aspirin Enteric Coated (Ecotrin Or Generic) 81 Mg Tab 81 MG PO HS, TAB Discharge Exam Doing well, sitting up in chair, eating breakfast, no any bloody stool for 2 days, denied any dizziness, Review of Systems: Constitutional: No fever, No chills, No sweats, No weight loss, No weakness , No fatigue, No problem reported Eyes: No worsening of vision, No eye pain, No redness, No discharge, No diplopia, No problem reported ENT: No hearing loss, No unusual epistaxis, No nasal symptoms, No sore throat, No tinnitus, No dental problems, No trouble swallowing, No problem reported Respiratory: No cough, No sputum, No wheezing, No shortness of breath, No dyspnea on exertion, No dyspnea at rest, No hemoptysis, No problem reported Cardiovascular: No chest pain, No orthopnea, No PND, No edema, No claudication, No palpitations, No problem reported Abdomen: No pain, No nausea, No vomiting, No diarrhea, No constipation, No GI bleeding, No problem reported Neurologic: No memory loss, No paralysis, No weakness, No numbness/tingling , No vertigo, No balance problems, No problem reported Psychiatric: No depression symptoms, No anhedonism, No anxiety, No insomnia , No substance abuse, No problem reported Endocrine: No fatigue, No excessive thirst, No excessive urination, No problem reported Hematologic / Lymphatic: No abnormal bleeding/bruising, No clotting problems , No swollen lymph nodes, No night sweats, No problem reported Integumentary: No rash, No itch, No new/changing skin lesions, No color change, No bleeding, No problem reported Physical Exam: General Appearance: WD/WN, no apparent distress, + pertinent finding (frail) Eyes: normal inspection, PERRL ENT: normal ENT inspection, hearing grossly normal Neck: supple, no adenopathy Respiratory/Chest: chest non-tender, lungs clear, normal breath sounds, no respiratory distress, no accessory muscle use, + decreased breath sounds Cardiovascular: regular rate, rhythm, no edema, no gallop Abdomen / GI: normal bowel sounds, non tender, no organomegaly, no pulsatile mass Extremities: normal inspection, no calf tenderness, normal capillary refill , no pedal edema Neurologic/Psychiatric: sales agent protective service II-XII nml as tested, no motor/sensory deficits , alert, normal mood/affect, normal reflexes Skin: normal color, warm/dry, no rash Hospital Course 89-year-old with history of rectal cancer was admitted on 02/24/2017 because of lower gastrointestinal bleeding lower gastrointestinal bleeding, Seems resolved , no any blood in the stool for 2 days H&H stable Abdominal CT studies, possible hemorrhage into diverticulum cannot be excluded, Surgeon saw the patient, no planning to have any procedure because patient has been stable GI on the case, Per GI, presumed diverticular bleeding, , maybe ok for d/c if she has no bleeding for 48 hours, H&H has been stable more than 48 hours bleeding scan has ordered, per report: "No evidence of gastrointestinal bleed." Patient got Cipro and Flagyl IV in the emergency known because of severe diverticulosis, patient C. difficile has checked was negative , discussed with GI , Feel no more need antibiotics Was mild confused prior to the Emergency Room visit, totally resolved. History of Afib, was on Coumadin until nausea Mild right upper quadrant pain yesterday No more pain today Right upper quadrant ultrasound was done; Per report: IMPRESSION: 1. Surgically absent gallbladder 2. 7 mm common bile duct 3. 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 DVT prophylaxis is SCD. No heparin product because is contraindicated. 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 - call your primary care physician OR go to local emergency room if has any fever/chill, chest pain, blood in stool, shortness of breathing, nausea/vomiting /abdominal pain, facial droop/slurry speech/local weakness, or if has any questions. - fall precaution - diet as instructed - you need to follow up with your subspecialist - you should understand that it is important to follow up the above instruction , and "not following the above instruction" may cause delayed or missed care of your medical conditions which may cause permanent organ damage and even . Total Time Spent: Greater than 30 minutes This includes examination of the patient, discharge planning, medication reconciliation, and communication with other providers. Discharge Instructions Please refer to the electronic Patient Visit Report (Discharge Instructions) for additional information. Additional Copies To Alexander Jaimes M.D.; [place],
== END 2017-02-27 12:12 | disposition home or self-care (01) | DRG 379 ==
LOC: EDBD 08:02 → C.EDA 08:03 → C.2E 10:51 → ENRESERV 11:34 → UNDOADMIN 12:11 → C.2E 12:11 → ENRESERV 02-26 12:33 → C.4E 02-26 13:34
PROVIDERS: ADMIT Hospitalist; ATTEND Hospitalist
DX: K57.91 Diverticulosis of intestine, part unspecified, without perforation or abscess with bleeding (principal); I48.91 Unspecified atrial fibrillation; E03.9 Hypothyroidism, unspecified; M81.0 Age-related osteoporosis without current pathological fracture; Z79.82 Long term (current) use of aspirin; Z79.899 Other long term (current) drug therapy; Z85.048 Personal history of other malignant neoplasm of rectum, rectosigmoid junction, and anus; Z86.711 Personal history of pulmonary embolism; Z92.3 Personal history of irradiation

== ENCOUNTER → 2017-03-08 | Outpatient (CLI) | payer BC, OTHER ==
[~2017-03-08] MED LIST changes: -ASPI81TA21 PO; +B-CO1CAP17 PO; +CHOL1000 PO; +CRD200 PO; -LACTTAB PO; -LEVO75TA25 PO; +LEVO75TA5 PO; -METO25TA56 PO; +MIRT15TA3 PO; -MULT-190 PO; +MULTCAP33 PO; +PRT40 PO
[2017-03-08 17:51] LABS: MEAN CELL VOLUME 95.1 fL (80-100); MEAN CORPUSCULAR HEMOGLOBIN 29.3 pg (25-34); MEAN CORPUSCULAR HGB CONC 30.9 g/dl (32-36); MEAN PLATELET VOLUME 10.7 fL (7.4-10.4); PLATELET COUNT 250 K/uL (130-400); RED BLOOD COUNT 3.68 M/uL (4.2-5.4); WHITE BLOOD COUNT 5.48 K/uL (4.8-10.8)
[2017-03-09 06:18] LABS: ESTIMATED AVERAGE GLUCOSE 103 mg/dl; HA1C FLAG Normal (Normal)
== END | disposition home or self-care (01) ==
LOC: C.LABBFT 15:20
PROVIDERS: ATTEND Nurse Practitioner
DX: R73.01 Impaired fasting glucose (principal); K92.2 Gastrointestinal hemorrhage, unspecified

== ENCOUNTER 2017-06-30 11:17 | Emergency (ER) | payer BC, OTHER ==
[~2017-06-30] VITALS: Ht 160 cm; Wt 60.3 kg
[2017-06-30 11:29] VITALS: TEMP 36.7; Ht 160 cm; Wt 60.3 kg
--- NOTE | 2017-06-30 12:47 | DIAGNOSTIC IMAGING REPORT ---
R KNEE 3 VIEWS CLINICAL HISTORY: Right knee pain COMPARISON: None. DISCUSSION: The bones are osteopenic. No acute fractures or dislocations are visualized. There are no erosive or destructive changes. There is a 5 mm corticated calcification overlying the inferior patellar pole of the lateral view. IMPRESSION: Osteopenia. No fractures or dislocations are visualized. Minor age-related degenerative change. Electronically signed by: Cipriano Nolasco M.D. 06/30/2017 12:46 PM Dictated Date/Time: 06/30/2017 12:45 PM
--- NOTE | 2017-06-30 12:59 | DIAGNOSTIC IMAGING REPORT ---
HEAD CT NONCONTRAST CT DOSE: HISTORY: fall hit head TECHNIQUE: Multiaxial CT images of the head were performed without the use of intravenous contrast. Automated exposure control was utilized for this study. A dose lowering technique was utilized adhering to the principles of ALARA. Comparison: None. Findings: The paranasal sinuses and mastoid air cells are clear. The calvarium and skull base are intact. There is no mass, hematoma, midline shift, acute infarct. White matter hypodensity is nonspecific but suggestive of microvascular ischemic change. The ventricles and sulci demonstrate mild age-related involutional changes. Left lateral scalp swelling. Punctate calcification within the right basal ganglia, unchanged. Motion artifact. Linear hyperdensity with adjacent to the right temporal lobe on image 11 is likely artifact. Impression: Mild motion artifact. No definite acute intracranial abnormality. Atrophy and microvascular ischemic changes. Left lateral scalp swelling. Electronically signed by: Ruiz Aden M.D. 06/30/2017 12:57 PM Dictated Date/Time: 06/30/2017 12:43 PM
--- NOTE | 2017-06-30 12:59 | DIAGNOSTIC IMAGING REPORT ---
CT OF THE CERVICAL SPINE WITHOUT CONTRAST CLINICAL HISTORY: Fall. COMPARISON STUDY: Cervical spine CT November 28, 2008. TECHNIQUE: Helical axial images of the cervical spine were obtained without IV contrast. Sagittal and coronal reconstructions were viewed. A dose lowering technique was utilized adhering to the principles of ALARA. FINDINGS: Craniocervical junction is intact. There is no acute cervical spine fracture. Slight anterolisthesis of C7 on T1 is unchanged and likely due to facet arthrosis. There is moderate multilevel degenerative disc disease and facet arthrosis of the cervical spine. There is no prevertebral edema. As before, the thyroid gland is enlarged. Lung apices are clear. IMPRESSION: No acute cervical spine fracture or subluxation. Electronically signed by: Pawan Ho M.D. 06/30/2017 12:58 PM Dictated Date/Time: 06/30/2017 12:44 PM
[2017-06-30 13:35] VITALS: BP 193/86; PULSE 66; O2SAT 97
--- NOTE | 2017-06-30 16:12 | EMERGENCY ROOM VISIT NOTE ---
History Report prepared by Branden: Rufino Rodriguez Under the Supervision of: Dr. Damon Reddy D.O. First contact with patient: 11:33 Chief Complaint: FALL Stated Complaint: L KNEE PAIN, L HEAD PAIN, FALL History of Present Illness The patient is a 89 year old female who presents to the Emergency Room with complaints of constant head pain after falling down 4 steps while cleaning today. She also complains of right knee pain. Patient adds she was cleaning her stairs while walking up the steps backwards when she fell. Patient does not currently take any blood thinners. Patient adds that she did not have a syncopal episode. She has no other complaints at this time. No back pain, belly pain, chest pain. Source of History: patient Onset: Today Position: head Timing: constant Associated Symptoms: No LOC Note: Additional symptoms: right knee pain. Review of Systems See HPI for pertinent positives & negatives. A total of 10 systems reviewed and were otherwise negative. Past Medical & Surgical Medical Problems: (1) Atrial fibrillation with RVR (2) Atrial fibrillation with RVR (3) Bleeding hemorrhoids (4) Chest pain syndrome (5) Hypothyroidism (6) Influenza B (7) Osteoporosis (8) rectal bleeding (9) Rectal cancer Family History FHx: cancer Social History Smoking Status: Never Smoker Alcohol Use: none Drug Use: none Marital Status: Housing Status: lives with family Occupation Status: retired Current/Historical Medications Scheduled Amiodarone HCl (Amiodarone HCl), 200 MG PO MWF Ascorbic Acid (Ascorbic Acid), 500 MG PO BID Calcium Carbonate-Vitamin D (Calcium 500 + D), 1 TAB PO DAILY Cholecalciferol (Vitamin D3), 1,000 UNIT PO DAILY Levothyroxine Sodium (Levothyroxine Sodium), 75 MCG PO DAILY Magnesium Oxide (Magnesium), 250 MG PO DAILY Mirtazapine (Remeron), 15 MG PO HS Multiple Vitamin (Multivitamin), 1 TAB PO DAILY Multiple Vitamins W/ Minerals (Preservision Areds), 1 CAP PO BID Vitamin B Cmplx/Vitc/Folic Ac (Nephrocaps), 1 CAP PO QAM Scheduled PRN Lorazepam (Ativan), 0.5 MG PO DAILY PRN for Anxiety Allergies Coded Allergies: Red Dye (Verified Allergy, Unknown, ., 06/30/17) Physical Exam Vital Signs Date Time Temp Pulse Resp B/P (MAP) Pulse Ox O2 Delivery O2 Flow Rate FiO2 06/30/17 13:35 66 18 193/86 97 Room Air 06/30/17 13:30 71 16 96 Room Air 06/30/17 11:29 36.7 61 18 173/76 97 Room Air Physical Exam GENERAL: alert, well appearing, well nourished, no distress, non-toxic HEAD: Contusion on left occiput. EYE EXAM: normal conjunctiva, PERRL and EOM's grossly intact OROPHARYNX: no exudate, no erythema, lips, buccal mucosa, and tongue normal and mucous membranes are moist EARS: TMs clear b/l NECK: supple, no nuchal rigidity, no adenopathy, non-tender CHEST: stable to compression anteriorly and posteriorly LUNGS: clear to auscultation. Normal chest wall mechanics HEART: no murmurs, S1 normal and S2 normal ABDOMEN: abdomen soft, non-tender, normo-active bowel sounds, no masses, no rebound or guarding. PELVIS: stable to compression anteriorly and posteriorly BACK: Back is symmetrical on inspection and there is no deformity, no midline tenderness, no CVA tenderness. UPPER EXTREMITIES: full active and passive range of motion of all joints without tenderness to palpation LOWER EXTREMITIES: full active and passive range of motion of all joints without tenderness to palpation with exception of right knee. Minimal tenderness with palpitation of the knee. Minimal bruising noted. NEURO EXAM: Normal sensorium, cranial nerves II-XII grossly intact, normal speech, no gross weakness of arms, no gross weakness of legs. GCS: 15. Medical Decision & Procedures ER Provider Diagnostic Interpretation: Radiology results as stated below per my review and the radiologist's interpretation: CT OF THE CERVICAL SPINE WITHOUT CONTRAST CLINICAL HISTORY: Fall. COMPARISON STUDY: Cervical spine CT November 28, 2008. TECHNIQUE: Helical axial images of the cervical spine were obtained without IV contrast. Sagittal and coronal reconstructions were viewed. A dose lowering technique was utilized adhering to the principles of ALARA. FINDINGS: Craniocervical junction is intact. There is no acute cervical spine fracture. Slight anterolisthesis of C7 on T1 is unchanged and likely due to facet arthrosis. There is moderate multilevel degenerative disc disease and facet arthrosis of the cervical spine. There is no prevertebral edema. As before, the thyroid gland is enlarged. Lung apices are clear. IMPRESSION: No acute cervical spine fracture or subluxation. Electronically signed by: Pawan Ho M.D. 06/30/2017 12:[address] NON[address]AST CT DOSE: HISTORY: fall hit head TECHNIQUE: Multiaxial CT images of the head were performed without the use of intravenous contrast. Automated exposure control was utilized for this study. A dose lowering technique was utilized adhering to the principles of ALARA. Comparison: None. Findings: The paranasal sinuses and mastoid air cells are clear. The calvarium and skull base are intact. There is no mass, hematoma, midline shift, acute infarct. White matter hypodensity is nonspecific but suggestive of microvascular ischemic change. The ventricles and sulci demonstrate mild age-related involutional changes. Left lateral scalp swelling. Punctate calcification within the right basal ganglia, unchanged. Motion artifact. Linear hyperdensity with adjacent to the right temporal lobe on image 11 is likely artifact. Impression: Mild motion artifact. No definite acute intracranial abnormality. Atrophy and microvascular ischemic changes. Left lateral scalp swelling. Electronically signed by: Ruiz Aden M.D. R KNEE 3 VIEWS CLINICAL HISTORY: Right knee pain COMPARISON: None. DISCUSSION: The bones are osteopenic. No acute fractures or dislocations are visualized. There are no erosive or destructive changes. There is a 5 mm corticated calcification overlying the inferior patellar pole of the lateral view. IMPRESSION: Osteopenia. No fractures or dislocations are visualized. Minor age-related degenerative change. Electronically signed by: Cipriano Nolasco M.D. 06/30/2017 12:46 PM ED Course ED COURSE: Vital signs were reviewed and showed hypertension The patients medical record was reviewed The above diagnostic studies were performed and reviewed. ED treatments and interventions as stated above. 1141: The patient was evaluated in room B5. A complete history and physical examination was performed. 1158: I reassessed the patient and she is resting comfortably. 1307: I checked up on the patient and she is resting comfortably. 1310: Upon reevaluation, the patient is resting comfortably.I discussed my findings with the patient and she understands and agrees with the treatment plan. Based on the patients age, coexisting illnesses, exam and lab findings the decision to treat as an outpatient was made. The patient remained stable while under my care. The patient appeared well at the time of discharge. Medical Decision Differential diagnoses include major intracranial, cervical, spinal, thoracic, abdominal, pelvic and neurologic injury. Fracture, contusion, sprain, strain, laceration, abrasions included as well. Patient is an 89-year-old female who was cleaning her steps walking down backwards and fell. She fell down 4 steps. Does not take any blood thinners. No loss consciousness. She does complain of hip pain. CT head and cervical spine was performed and unremarkable. X-ray of the knee was unremarkable as well. Patient remained stable in the ER. She has no other complaints. She was updated bedside. She was discharged follow-up with PCP. Discussed with Pt concerning signs and symptoms to watch out for. Pt was instructed to follow up with their PCP and discussed with the patient their option to return to the ED at anytime for persistent or worsening symptoms. The appropriate anticipatory guidance and out-patient management, including indications for return to the emergency department, were explained at length to the patient and understood. Medication Reconcilliation Current Medication List: was personally reviewed by me Blood Pressure Screening Patient's blood pressure: Elevated blood pressure Blood pressure disposition: Referred to PCP Impression Primary Impression: Contusion of head Additional Impression: Contusion of knee Scribe Attestation The scribe's documentation has been prepared under my direction and personally reviewed by me in its entirety. I confirm that the note above accurately reflects all work, treatment, procedures, and medical decision making performed by me. Departure Information Dispostion Home / Self-Care Referrals Alexander Jaimes M.D. (PCP) Forms HOME CARE DOCUMENTATION FORM, IMPORTANT VISIT INFORMATION Patient Instructions ED Contusion Lower Ext, ED Contusion Scalp, My [facility] Additional Instructions Please follow up with your primary care doctor with in the next 24 hours. Any worsening of your symptoms, please return to the ED immediately. This includes any fevers greater than 100.4, worsening pain, chest pain, shortness breath, persistent nausea, vomiting, unable to eat or drink, or any other concerning signs or symptoms from your standpoint. Please follow up with your primary care doctor as stated above. Please take Motrin or Tylenol as needed for pain. Problem Qualifiers Primary Impression: Contusion of head Encounter type: initial encounter Contusion of head detail: unspecified part of head Qualified Codes: S00.93XA - Contusion of unspecified part of head , initial encounter Additional Impression: Contusion of knee Encounter type: initial encounter Laterality: right Qualified Codes: S80.01XA - Contusion of right knee, initial encounter
== END 2017-06-30 13:53 | disposition home or self-care (01) ==
LOC: C.EDB 11:20
DX: S00.93XA Contusion of unspecified part of head, initial encounter (principal); S80.01XA Contusion of right knee, initial encounter; W10.9XXA Fall (on) (from) unspecified stairs and steps, initial encounter; Y93.01 Activity, walking, marching and hiking; Y93.89 Activity, other specified; I48.91 Unspecified atrial fibrillation; E03.9 Hypothyroidism, unspecified; M81.0 Age-related osteoporosis without current pathological fracture; Z85.048 Personal history of other malignant neoplasm of rectum, rectosigmoid junction, and anus; Z79.899 Other long term (current) drug therapy

== ENCOUNTER 2017-07-27 14:12 | Inpatient (IN) | payer BC, OTHER ==
[~2017-07-27] VITALS: Ht 154.9 cm; Wt 58.8 kg
[~2017-07-27 14:12] MED LIST changes: -CALCTAB65 PO; -PRT40 PO
[2017-07-27] MEDS ORDERED: CEFAZOLIN IV 1,000 MG in DEXTROSE 5% 50ML 50 ML IV STA (14:30)
[2017-07-27 14:59] LABS: BASO % 0.5 %; BASO ABS # 0.05 K/uL (0-0.2); EOS % 2.3 %; EOS ABS # 0.25 K/uL (0-0.5); HEMATOCRIT 31.2 % (37-47); IG# 0.02 K/uL (0.00-0.02); LYMPH % 9.3 %; LYMPH ABS # 1.01 K/uL (1.2-3.4); MEAN CORPUSCULAR HEMOGLOBIN 30.1 pg (25-34); MEAN CORPUSCULAR HGB CONC 32.1 g/dl (32-36); MEAN PLATELET VOLUME 10.6 fL (7.4-10.4); MONO % 9.3 %; MONO ABS # 1.01 K/uL (0.11-0.59); NEUT % 78.4 %; NEUT ABS # 8.54 K/uL (1.4-6.5); PLATELET COUNT 204 K/uL (130-400); RED CELL DISTRIBUTION WIDTH CV 14.1 % (11.5-14.5); RED CELL DISTRIBUTION WIDTH SD 48.4 fL (36.4-46.3); WHITE BLOOD COUNT 10.88 K/uL (4.8-10.8)
[2017-07-27 15:13] LABS: PTT PATIENT 24.1 SECONDS (21.0-31.0)
[2017-07-27 15:20] LABS: CALCIUM 9.1 mg/dl (8.5-10.1); CREATININE 0.8 mg/dl (0.60-1.20); POTASSIUM 3.9 mmol/L (3.5-5.1)
--- NOTE | 2017-07-27 16:03 | DIAGNOSTIC IMAGING REPORT ---
LEFT UPPER EXTREMITY VENOUS DOPPLER ULTRASOUND CLINICAL HISTORY: Left arm swelling. COMPARISON STUDY: No previous studies for comparison. FINDINGS: The left internal jugular, subclavian, axillary, cephalic, brachial, basilic, radial and ulnar veins were patent. IMPRESSION: No deep venous thrombus within the left upper extremity. Electronically signed by: Pawan Ho M.D. 07/27/2017 4:01 PM Dictated Date/Time: 07/27/2017 4:00 PM
--- NOTE | 2017-07-27 16:04 | DIAGNOSTIC IMAGING REPORT ---
L EXTREMITY NONVASCULAR LIMITED CLINICAL HISTORY: left forearm pain eval for abscess pain TECHNIQUE: Ultrasound COMPARISON STUDY: None FINDINGS: Generalized soft tissue edema of the left forearm. 1 x 2.5 cm fluid pocket at the region of skin edematous change at the left wrist. This potentially represents an old hematoma. Does not appear to be complex. IMPRESSION: Soft tissue edema. Small simple fluid pocket within the soft tissues at the left wrist. This potentially relates to an old seroma or hematoma. Abscess is not entirely excluded but this is felt to be less likely by ultrasound criteria The above report was generated using voice recognition software. It may contain grammatical, syntax or spelling errors. Electronically signed by: Ben Lau M.D. 07/27/2017 4:03 PM Dictated Date/Time: 07/27/2017 4:01 PM
[2017-07-27] MEDS ORDERED: CALCTAB65 PO (16:05)
[2017-07-27] MEDS ORDERED: DICL1GEL34 TOP (16:36)
[2017-07-27] MEDS ORDERED: ASPI81TA28 PO (16:36)
[2017-07-27] MEDS ORDERED: ACET-749 PO (16:36)
[2017-07-27] MEDS ORDERED: IRON PO (16:36)
--- NOTE | 2017-07-27 16:40 | EMERGENCY ROOM VISIT NOTE ---
History Report prepared by Branden: Minnie Islas Under the Supervision of: Dr. Rufino Wu M.D. First contact with patient: 14:23 Chief Complaint: SWELLING TO EXTREMITY Stated Complaint: LEFT ARM SWOLLEN History of Present Illness The patient is an 89 year old female who presents to the Emergency Room with complaints of persistent left arm swelling for two days. She states the swelling began in her upper left forearm and spread to her left hand and fingers. The patient was seen June 30, 2017 for a fall, though did not notice any left arm pain at the time. She states the swelling and pain has worsened overnight. She currently rates her pain an 8/10 in severity. She also notes mild shortness of breath. She denies any fever, vomiting, chest pain, or abdominal pain. The patient was sent to the ED for evaluation by her orthopedic doctor who was concerned about possible DVT. Source of History: patient Onset: two days Position: arm (left) Symptom Intensity: 8/10 Quality: other (swelling) Timing: other (persistent) Associated Symptoms: + SOB (mild), No fevers, No chest pain, No vomiting, No abdominal pain Note: She notes left arm and left hand pain and swelling. Review of Systems See HPI for pertinent positives & negatives. A total of 10 systems reviewed and were otherwise negative. Past Medical & Surgical Medical Problems: (1) Atrial fibrillation with RVR (2) Atrial fibrillation with RVR (3) Bleeding hemorrhoids (4) Chest pain syndrome (5) Fall (6) Hypothyroidism (7) Influenza B (8) Osteoporosis (9) rectal bleeding (10) Rectal cancer Family History FHx: cancer Social History Smoking Status: Never Smoker Alcohol Use: none Drug Use: none Marital Status: Housing Status: lives with family Occupation Status: retired Current/Historical Medications Scheduled Amiodarone HCl (Amiodarone HCl), 200 MG PO MWF Ascorbic Acid (Ascorbic Acid), 500 MG PO BID Aspirin (Aspirin Ec), 81 MG PO DAILY Calcium Carbonate-Vitamin D (Calcium 500 + D), 1 TAB PO DAILY Cholecalciferol (Vitamin D3), 1,000 UNIT PO DAILY Diclofenac Sodium (Topical) (Diclofenac Sodium), 4 GM TOP QID Levothyroxine Sodium (Levothyroxine Sodium), 75 MCG PO DAILY Magnesium Oxide (Magnesium), 250 MG PO DAILY Mirtazapine (Remeron), 15 MG PO HS Multiple Vitamin (Multivitamin), 1 TAB PO DAILY Multiple Vitamins W/ Minerals (Preservision Areds), 1 CAP PO BID Vitamin B Cmplx/Vitc/Folic Ac (Nephrocaps), 1 CAP PO QAM [Iron 75MG/Ml], 5 ML PO AMPM Scheduled PRN Acetaminophen/Codeine (Tylenol W/Codeine #3), 1 TAB PO Q4-6 HRS PRN for Pain Allergies Coded Allergies: Red Dye (Verified Allergy, Unknown, ., 06/30/17) Physical Exam Vital Signs Date Time Temp Pulse Resp B/P (MAP) Pulse Ox O2 Delivery O2 Flow Rate FiO2 07/27/17 15:04 70 15 154/74 99 Room Air 07/27/17 14:18 36.7 67 17 130/76 98 Room Air Physical Exam Constitutional: Vital signs reviewed. Eyes: Pupils are equal round reactive to light. Conjunctiva are noninjected. ENT: Pharynx is clear without erythema or exudate. Mucous membranes are moist. Neck supple without meningeal signs. Respiratory: Clear to auscultation bilaterally. Breath sounds are equal bilaterally. Cardiovascular: Regular rate and rhythm. No rubs or gallops. GI: Soft, nondistended and nontender. Bowel sounds are present. Musculoskeletal: Erythema with increased warmth of left forearm extending into the wrist with swelling and tenderness with swelling extending into the fingers without tenderness in the hand. Her rings are tight on the left ring finger. Integumentary: No cyanosis. Neurological: The patient is awake and alert. No focal deficits. Psychiatric: Normal affect. Medical Decision & Procedures ER Provider Diagnostic Interpretation: Radiology results as stated below per my review and the radiologist's interpretation: LEFT UPPER EXTREMITY VENOUS DOPPLER ULTRASOUND CLINICAL HISTORY: Left arm swelling. COMPARISON STUDY: No previous studies for comparison. FINDINGS: The left internal jugular, subclavian, axillary, cephalic, brachial, basilic, radial and ulnar veins were patent. IMPRESSION: No deep venous thrombus within the left upper extremity. Electronically signed by: Pawan Ho M.D. 07/27/2017 4:01 PM Dictated Date/Time: 07/27/2017 4:00 PM L EXTREMITY NONVASCULAR LIMITED CLINICAL HISTORY: left forearm pain eval for abscess pain TECHNIQUE: Ultrasound COMPARISON STUDY: None FINDINGS: Generalized soft tissue edema of the left forearm. 1 x 2.5 cm fluid pocket at the region of skin edematous change at the left wrist. This potentially represents an old hematoma. Does not appear to be complex. IMPRESSION: Soft tissue edema. Small simple fluid pocket within the soft tissues at the left wrist. This potentially relates to an old seroma or hematoma. Abscess is not entirely excluded but this is felt to be less likely by ultrasound criteria The above report was generated using voice recognition software. It may contain grammatical, syntax or spelling errors. Electronically signed by: Ben Lau M.D. 07/27/2017 4:03 PM Dictated Date/Time: 07/27/2017 4:01 PM Laboratory Results 07/27/17 14:46 Red Blood Count 3.32, Mean Corpuscular Volume 94.0, Mean Corpuscular Hemoglobin 30.1, Mean Corpuscular Hemoglobin Concent 32.1, Mean Platelet Volume 10.6, Neutrophils (%) (Auto) 78.4, Lymphocytes (%) (Auto) 9.3, Monocytes (%) (Auto) 9.3, Eosinophils (%) (Auto) 2.3, Basophils (%) (Auto) 0.5, Neutrophils # (Auto) 8.54, Lymphocytes # (Auto) 1.01, Monocytes # (Auto) 1.01, Eosinophils # (Auto) 0.25, Basophils # (Auto) 0.05 07/27/17 14:46 Test 07/27/17 14:46 White Blood Count 10.88 K/uL (4.8-10.8) Red Blood Count 3.32 M/uL (4.2-5.4) Hemoglobin 10.0 g/dL (12.0-16.0) Hematocrit 31.2 % (37-47) Mean Corpuscular Volume 94.0 fL (80-100) Mean Corpuscular Hemoglobin 30.1 pg (25-34) Mean Corpuscular Hemoglobin Concent 32.1 g/dl (32-36) Platelet Count 204 K/uL (130-400) Mean Platelet Volume 10.6 fL (7.4-10.4) Neutrophils (%) (Auto) 78.4 % Lymphocytes (%) (Auto) 9.3 % Monocytes (%) (Auto) 9.3 % Eosinophils (%) (Auto) 2.3 % Basophils (%) (Auto) 0.5 % Neutrophils # (Auto) 8.54 K/uL (1.4-6.5) Lymphocytes # (Auto) 1.01 K/uL (1.2-3.4) Monocytes # (Auto) 1.01 K/uL (0.11-0.59) Eosinophils # (Auto) 0.25 K/uL (0-0.5) Basophils # (Auto) 0.05 K/uL (0-0.2) RDW Standard Deviation 48.4 fL (36.4-46.3) RDW Coefficient of Variation 14.1 % (11.5-14.5) Immature Granulocyte % (Auto) 0.2 % Immature Granulocyte # (Auto) 0.02 K/uL (0.00-0.02) Prothrombin Time 10.7 SECONDS (9.0-12.0) Prothromb Time International Ratio 1.0 (0.9-1.1) Activated Partial Thromboplast Time 24.1 SECONDS (21.0-31.0) Partial Thromboplastin Ratio 0.9 Anion Gap 6.0 mmol/L (3-11) Est Creatinine Clear Calc Drug Dose 37.7 ml/min Estimated GFR () 75.8 Estimated GFR (Non- 65.4 BUN/Creatinine Ratio 47.0 (10-20) Calcium Level 9.1 mg/dl (8.5-10.1) Laboratory results as reviewed by me. Medications Administered Medications (Trade) Dose Ordered Sig/Dariela Route Start Time Stop Time Status Last Admin Dose Admin Cefazolin Sodium 1000 mg/Dextrose 55 ml @ 100 mls/hr NOW STAT IV 07/27/17 14:30 07/27/17 15:02 DC 07/27/17 15:00 100 MLS/HR ECG Indication: SOB/dyspnea Rate (beats per minute): 68 Rhythm: normal sinus Findings: T-wave inversion (Lateral), no ectopy ED Course 1424: The patient was evaluated in room A4B. A complete history and physical exam was performed. 1430: Ordered Cefazolin Sodium 1,000 mg/Dextrose 55 ml @ 100 mls/hr 1603: I reassessed the patient at this time. I discussed the results and treatment plan with the patient. I answered all pertaining questions that she had. She expressed understanding and verbalized agreement. The patient will be further evaluated. 1610: I spoke with Dr. [facility] orthopedic. We discussed the patients case. He agrees with the treatment plan. 1614: I spoke with sonali Womack. We discussed the patients case. The patient will be evaluated by the [facility] for further management. Medical Decision This is an 89-year-old female presents with left arm pain. Differential diagnosis includes cellulitis, lymphangitis, DVT, superficial thrombophlebitis, abscess. I did perform a limited focused review of portions of the patient's old chart on the electronic medical record. The patient was seen June 30, 2017 for a fall and was diagnosed with contusion of the head and knee. I did evaluate the patient as noted above. She does appear to have a cellulitis to her left forearm. IV access was established. I did order blood cultures. I did treat her with Ancef 1 g IV. I did order and review the patient's blood work as noted in the electronic medical record. I did order an ultrasound of the left arm as well as a Doppler scan of the left arm. I did review the images myself as well as the radiology report as described above. There is no evidence of DVT. The patient does have a fluid collection near the wrist which does not appear to be an abscess by ultrasound criteria. Clinically the area in question is not significantly tender. Her tenderness is mostly near the proximal forearm. I did discuss the case with the orthopedic physician who sent her in for evaluation. He agreed with my plan for hospitalization for IV antibiotics. I did discuss case with the hospitalist and family service caseworker. Medication Reconcilliation Current Medication List: was personally reviewed by me Blood Pressure Screening Patient's blood pressure: Elevated blood pressure Blood pressure disposition: Elevated BP felt to be situational Consults Time Called: 1608 Consulting Physician: Dr. [facility] orthopedic Returned Call: [address] [facility] orthopedic. We discussed the patients case. He agrees with the treatment plan. Additional Consults: Time Called: 1614 Consulted Physician: sonali Womack Additional Comments: I spoke with sonali Womack. We discussed the patients case. The patient will be evaluated by the [facility] for further management. Impression Primary Impression: Left arm cellulitis Scribe Attestation The scribe's documentation has been prepared under my direct and personally reviewed by me in its entirety. I confirm that the note above accurately reflects all work, treatment, procedures, and medical decision making performed by me. Departure Information Dispostion Being Evaluated By Hospitalist Referrals Alexander Jaimes M.D. (PCP) Patient Instructions [facility]
--- NOTE | 2017-07-27 17:17 | History and Physical ---
History & Physical Date & Time of Service: Jul 27, 2017 at 17:11 Chief Complaint: Left Arm Swollen Primary Care Physician: Alexander Jaimes M.D. History of Present Illness Source: patient, family This is a 89 Yo F with PMHx of HTN, HLD, paroxysmal Afib not on anticoagulation due to GI bleed in November 2015, AAA measuring 4.5 cm January 2016, anemia, hx rectal carcinoma with resection and XRT in 1991, hypothyroidism, gait disturbance presenting with left arm redness and swelling over the entire forearm, including the hand, and tracking up the posterior upper arm. The patient reports developing redness and swelling over left forearm about 4 days ago. Pt notes the arm pain and swelling worsened today and prompted her to go to her PCPs office. From there she was referred to [facility]. Pt was seen by Dr. Chan for possible septic arthritis vs infected olecranon bursitis and was sent to the ER. She denies any inciting event such as trauma from fall, scratch, excoriation, etc. She denies any fever, chills or sweats. She notes the swelling has reduced some since getting antibiotics here. She cannot fully bend her elbow without pain, and cannot close her left hand into a fist without pain. In the ED she was started on ancef. An ultrasound is negative for DVT of the upper extremity. There is a small fluid filled pocked in the Left wrist which was considered to be an old seroma or hematoma. WBC= 10.8, Checking ESR. PRP is WNL. CBC with mild anemia with Hgb =10. Past Medical/Surgical History Medical Problems: (1) AAA (abdominal aortic aneurysm) (2) Atrial fibrillation (3) Atrial fibrillation with RVR (4) Bleeding hemorrhoids (5) Fall (6) HTN (hypertension) (7) Hypothyroidism (8) Influenza B (9) Osteoporosis (10) Rectal cancer (11) Vitamin D deficiency Surg Hx: Laproscopic Cholecystectomy Partial colectomy 1991 Total hysterectomy, oophorectomy Family History FHx: cancer Family hx of stroke Social History Smoking Status: Never Smoker Smokeless Tobacco Use: No Alcohol Use: none Drug Use: none Marital Status: Housing status: lives with family Occupational Status: retired Immunizations History of Influenza Vaccine: No History of Tetanus Vaccine?: No History of Pneumococcal: Yes Pneumococcal Date: Mar 04, 2011 History of Hepatitis B Vaccine: No Multi-Drug Resistant Organisms History of MDRO: No Allergies Coded Allergies: Red Dye (Verified Allergy, Unknown, ., 06/30/17) Home Medications Scheduled Amiodarone HCl (Amiodarone HCl), 200 MG PO MWF Ascorbic Acid (Ascorbic Acid), 500 MG PO BID Aspirin (Aspirin Ec), 81 MG PO DAILY Calcium Carbonate-Vitamin D (Calcium 500 + D), 1 TAB PO DAILY Cholecalciferol (Vitamin D3), 1,000 UNIT PO DAILY Diclofenac Sodium (Topical) (Diclofenac Sodium), 4 GM TOP QID Levothyroxine Sodium (Levothyroxine Sodium), 75 MCG PO DAILY Magnesium Oxide (Magnesium), 250 MG PO DAILY Mirtazapine (Remeron), 15 MG PO HS Multiple Vitamin (Multivitamin), 1 TAB PO DAILY Multiple Vitamins W/ Minerals (Preservision Areds), 1 CAP PO BID Vitamin B Cmplx/Vitc/Folic Ac (Nephrocaps), 1 CAP PO QAM [Iron 75MG/Ml], 5 ML PO AMPM Scheduled PRN Acetaminophen/Codeine (Tylenol W/Codeine #3), 1 TAB PO Q4-6 HRS PRN for Pain Review of Systems Constitutional: No fever, No chills, No sweats, No weight loss, No fatigue Eyes: No worsening of vision, No redness ENT: No hearing loss, No sore throat Respiratory: No cough, No sputum, No wheezing, No shortness of breath Cardiovascular: No chest pain, No edema, No palpitations Abdomen: No pain, No nausea, No vomiting, No diarrhea, No constipation Musculoskeletal: + joint pain (left elbow, left wrist), + swelling (Left arm), No calf pain Genitourinary - Female: No dysuria Neurologic: No numbness/tingling Endocrine: No fatigue Physical Exam Vital Signs Date Time Temp Pulse Resp B/P (MAP) Pulse Ox O2 Delivery O2 Flow Rate FiO2 07/27/17 16:48 69 07/27/17 16:40 71 22 160/73 96 07/27/17 15:04 70 15 154/74 99 Room Air 07/27/17 14:18 36.7 67 17 130/76 98 Room Air General Appearance: WD/WN, no apparent distress Head: normocephalic, atraumatic Eyes: PERRL, EOMI ENT: TMs normal, pharynx normal, + pertinent finding (MMM) Neck: supple, no JVD Respiratory/Chest: lungs clear, no respiratory distress, no accessory muscle use Cardiovascular: regular rate, rhythm, no JVD, + systolic murmur Abdomen/GI: normal bowel sounds, non tender, soft Back: normal inspection Extremities/Musculoskelatal: no calf tenderness, no pedal edema, + pertinent finding (Left forearm circumferentially erythematous and involving the entire hand, +tracking of erythema up the posterior aspect of the upper arm, + point tenderness over olecranono, + tenderness over ulnar styloid, +edema, + warmth. Other extremities WNL. ) Neurologic/Psych: alert, normal mood/affect, oriented x 3 Skin: normal color, warm/dry Diagnostics Laboratory Results Results Past 24 Hours Test 07/27/17 14:46 Range/Units White Blood Count 10.88 4.8-10.8 K/uL Red Blood Count 3.32 4.2-5.4 M/uL Hemoglobin 10.0 12.0-16.0 g/dL Hematocrit 31.2 37-47 % Mean Corpuscular Volume 94.0 80-100 fL Mean Corpuscular Hemoglobin 30.1 25-34 pg Mean Corpuscular Hemoglobin Concent 32.1 32-36 g/dl Platelet Count 204 130-400 K/uL Mean Platelet Volume 10.6 7.4-10.4 fL Neutrophils (%) (Auto) 78.4 % Lymphocytes (%) (Auto) 9.3 % Monocytes (%) (Auto) 9.3 % Eosinophils (%) (Auto) 2.3 % Basophils (%) (Auto) 0.5 % Neutrophils # (Auto) 8.54 1.4-6.5 K/uL Lymphocytes # (Auto) 1.01 1.2-3.4 K/uL Monocytes # (Auto) 1.01 0.11-0.59 K/uL Eosinophils # (Auto) 0.25 0-0.5 K/uL Basophils # (Auto) 0.05 0-0.2 K/uL RDW Standard Deviation 48.4 36.4-46.3 fL RDW Coefficient of Variation 14.1 11.5-14.5 % Immature Granulocyte % (Auto) 0.2 % Immature Granulocyte # (Auto) 0.02 0.00-0.02 K/uL Prothrombin Time 10.7 9.0-12.0 SECONDS Prothromb Time International Ratio 1.0 0.9-1.1 Activated Partial Thromboplast Time 24.1 21.0-31.0 SECONDS Partial Thromboplastin Ratio 0.9 Sodium Level 140 136-145 mmol/L Potassium Level 3.9 3.5-5.1 mmol/L Chloride Level 108 98-107 mmol/L Carbon Dioxide Level 26 21-32 mmol/L Anion Gap 6.0 3-11 mmol/L Blood Urea Nitrogen 38 7-18 mg/dl Creatinine 0.80 0.60-1.20 mg/dl Est Creatinine Clear Calc Drug Dose 37.7 ml/min Estimated GFR () 75.8 Estimated GFR (Non- 65.4 BUN/Creatinine Ratio 47.0 10-20 Random Glucose 95 70-99 mg/dl Calcium Level 9.1 8.5-10.1 mg/dl Microbiology Results 07/27/17 Blood Culture, Received Pending 07/27/17 Blood Culture, Received Pending Diagnostic Radiology LEFT UPPER EXTREMITY VENOUS DOPPLER ULTRASOUND CLINICAL HISTORY: Left arm swelling. COMPARISON STUDY: No previous studies for comparison. FINDINGS: The left internal jugular, subclavian, axillary, cephalic, brachial, basilic, radial and ulnar veins were patent. IMPRESSION: No deep venous thrombus within the left upper extremity. Electronically signed by: Pawan Ho M.D. 07/27/2017 4:01 PM Dictated Date/Time: 07/27/2017 4:00 PM The status of this report is Signed. L EXTREMITY NONVASCULAR LIMITED CLINICAL HISTORY: left forearm pain eval for abscess pain TECHNIQUE: Ultrasound COMPARISON STUDY: None FINDINGS: Generalized soft tissue edema of the left forearm. 1 x 2.5 cm fluid pocket at the region of skin edematous change at the left wrist. This potentially represents an old hematoma. Does not appear to be complex. IMPRESSION: Soft tissue edema. Small simple fluid pocket within the soft tissues at the left wrist. This potentially relates to an old seroma or hematoma. Abscess is not entirely excluded but this is felt to be less likely by ultrasound criteria The above report was generated using voice recognition software. It may contain grammatical, syntax or spelling errors. Electronically signed by: Ben Lau M.D. 07/27/2017 4:03 PM Dictated Date/Time: 07/27/2017 4:01 PM The status of this report is Signed. Impression Assessment and Plan This is a 89 Yo F with PMHx of HTN, HLD, paroxysmal Afib not on anticoagulation due to GI bleed in November 2015, AAA measuring 4.5 cm, anemia, hx rectal carcinoma with resection and XRT in 1991, diverticulosis, hypothyroidism , gait disturbance presenting with left arm redness and swelling over the entire forearm, including the hand, and tracking up the posterior upper arm. Left Arm Cellulitis/ Left olecranon bursitis - Admit to med/surg - Pt has not been treated with outpatient antibiotics, but due to the involvement of over 50% of the extremity being involved we will admit. VSS, does not meet septic criteria. - WBC minimally elevated at 10.8K, trend CBC. Started on ancef in the ER, will continue on rocephin and vanc at this time pending a MRSA swab. - Consult ortho for possible septic joint vs olecranon bursitis and needs for drainage. - DVT UE negative for VTE, nonvascular scan showing small seroma vs hematoma in the left wrist. - Erythema outlined in the ER with skin marker - Pain control with Tylenol #3; pt uses this as outpatient a few times per week for chronic pain in low back - Checking an ESR Paroxysmal Afib Hx of AAA (4.5 cm January 2016) HTN HLD - Continue home medications of digoxin 200 mcg MWF, asa 81 mg, not on statin therapy - Last echo was January 2016 with preserved EF of 60%. - Follows with Dr. Mortensen as an outpatient Hx rectal carcinoma Diverticulitis - Stable- Last BM yesterday Anemia - Stable, hgb 10, follow cbc, continue iron supplementation Hypothyroidism - Cont levothyroxine 75 mcg daily Hx of Falls/gait disturbance - PT/OT evaluation - uses cane for ambulation DVT ppx: lovenox, teds, scds CODE STATUS: FULL Disposition: From home, lives with , PT/OT Level of Care Med/Surg Resuscitation Status FULL RESUSCITATION VTE Prophylaxis Risk Level: Low Given or contraindicated: Enoxaparin (Lovenox)SQ, T.E.D. Stockings, SCD's Reviewed: Pt Seen/Exam by Me History Physician Legal Administrative Assistant Supervision Note: I interviewed and examined the patient. Discussed with WILFRID Vasques and agree with findings and plan as documented in the note. Any exceptions or clarifications are listed here: Pt presented with progressively worsening erythema of the left elbow and forearm over a 2-3 day period, no fevers. Pt has some baseline dementia and gives me various versions of her history. She reports she has had pain in the elbow ever since she fell a few weeks ago (fll confirmed by ), but redness started a few days ago as per . Vitals reviewed NAD, AAO x 1 RRR 2/6 JESSICA at [facility] CTAB no wcr Abd +BS soft NT ND Ext: left elbow with +edematous olecranon bursa with exquisite tenderness and erythema, with erythema and edema spread distally to hand, 2+ pitting; legs no edema 89 yo female with left septic olecranon bursitis with surrounding cellulitis encompassing > 50% of left upper extremity. -admit for IV abx with broad coverage Rocephin, Vanco -consult Ortho to see about need for I&D of bursa -elevate limb above heart -IVFs given -make NPO after midnight in case of need for surgical drainage tomorrow -add on IV hydralazine prn elevated BPs Documented By: Jeannie Cruz
[2017-07-27] MEDS ORDERED: ONDANSETRON INJ 2 MG/ML 2 ML VIAL IV PRN (17:45)
[2017-07-27] MEDS ORDERED: ACETAMINOPHEN 325 MG TAB PO PRN (17:45)
[2017-07-27] MEDS ORDERED: POLYETHYLENE (MIRALAX) 17 GM PACK PO PRN (17:45)
[2017-07-27] MEDS ORDERED: VANCOMYCIN CONSULT ACTIVE PRN (17:45)
[2017-07-27] MEDS ORDERED: ACETAMINOPHEN/CODEINE 300/30MG TAB PO PRN (17:45)
[2017-07-27 20:03] VITALS: BP 177/76; PULSE 79; TEMP 36.7; O2SAT 90
--- NOTE | 2017-07-27 21:59 | Pharmacy Progress Note ---
Pharmacy Abx Initial Consult Date of Service Jul 27, 2017. Pharmacy Dosing Scope Date of Consult: 07/27/17 Consultation requested by: Dr. Watson Pharmacy is consulted to initiate Vancomycin IV dosing therapy, order appropriate labs and adjust drug dose/frequency. Subjective The patient is a 89 year old female admitted on Jul 27, 2017 at 18:01. Objective Height (Feet): 5 Height (Inches): 2.00 Weight (Kilograms): 60.000 Vital Signs (Past 12Hrs) Vital Signs Past 12 Hours Date Time Temp Pulse Resp B/P (MAP) Pulse Ox O2 Delivery O2 Flow Rate FiO2 07/27/17 20:03 36.7 79 20 177/76 (109) 90 Room Air 07/27/17 18:40 71 17 143/83 97 Room Air 07/27/17 16:48 69 07/27/17 16:40 71 22 160/73 96 07/27/17 15:04 70 15 154/74 99 Room Air 07/27/17 14:18 36.7 67 17 130/76 98 Room Air Lab Results (24Hrs) Laboratory Tests (24 Hours) Test 07/27/17 14:46 Erythrocyte Sedimentation Rate 43 mm/hr (0-21) H White Blood Count 10.88 K/uL (4.8-10.8) H Red Blood Count 3.32 M/uL (4.2-5.4) L Hemoglobin 10.0 g/dL (12.0-16.0) L Hematocrit 31.2 % (37-47) L Mean Corpuscular Volume 94.0 fL (80-100) Mean Corpuscular Hemoglobin 30.1 pg (25-34) Mean Corpuscular Hemoglobin Concent 32.1 g/dl (32-36) Platelet Count 204 K/uL (130-400) Mean Platelet Volume 10.6 fL (7.4-10.4) H Neutrophils (%) (Auto) 78.4 % Lymphocytes (%) (Auto) 9.3 % Monocytes (%) (Auto) 9.3 % Eosinophils (%) (Auto) 2.3 % Basophils (%) (Auto) 0.5 % Neutrophils # (Auto) 8.54 K/uL (1.4-6.5) H Lymphocytes # (Auto) 1.01 K/uL (1.2-3.4) L Monocytes # (Auto) 1.01 K/uL (0.11-0.59) H Eosinophils # (Auto) 0.25 K/uL (0-0.5) Basophils # (Auto) 0.05 K/uL (0-0.2) Micro Results Date/Time Source Procedure Growth Status 07/27/17 14:46 Blood Blood Culture Pending Received 07/27/17 14:46 Blood Blood Culture Pending Received 07/27/17 20:56 Nasal MRSA DNA Surveillance Screen Pending Received Assessment & Plan Assessment 89 year old female admitted with Left Arm Cellulitis/ Left olecranon bursitis Plan Empiric Vancomycin + Ceftriaxone Vancomycin IV * Loading dose: 1500 mg (25 mg/kg) * Maintenance dose: 1000 mg IV (16.7 mg/kg) every 24 hours * Goal trough level for indication ~15 mcg/mL * Trough level ordered for 07/30/17 Ceftriaxone 1g IV daily (not pharm consult) Pharmacy will continue to follow and will adjust dose/frequency as necessary. Thank you.
[2017-07-27] MEDS ORDERED: IV FLUIDS COMPLETED PRN (22:00)
[2017-07-27] MEDS: FERROUS SULFATE ELIX 220MG/5ML PO SCH (22:11)
[2017-07-27] MEDS: ASCORBIC ACID 500 MG TAB PO SCH (22:12)
[2017-07-27] MEDS: ENOXAPARIN 40 MG/0.4 ML SYR SQ SCH (22:12)
[2017-07-27] MEDS: MIRTAZAPINE TAB 15 MG TAB PO SCH (22:12)
[2017-07-27 22:22] VITALS: BP 147/81; PULSE 69; TEMP 37; O2SAT 92
[2017-07-27] MEDS ORDERED: VANCOMYCIN INJ 1,500 MG in SODIUM CHLORIDE 0.9% 500ML 500 ML IV ONE (22:30)
[2017-07-27 22:47] VITALS: BP 147/81; PULSE 69; TEMP 37; O2SAT 92; Ht 154.9 cm; Wt 58.8 kg
[2017-07-28] MEDS: CEFTRIAXONE SOD INJ 1 GM in DEXTROSE 5% ADD-VANTAGE 50ML 50 ML IV SCH ×2 (01:00→21:19)
[2017-07-28] MEDS ORDERED: HydrALAZINE HCL 20 MG/ML VIAL IV. PRN (01:15)
[2017-07-28] MEDS ORDERED: SODIUM CHLORIDE 0.45% 1000ML 1,000 ML IV SCH (01:30)
[2017-07-28] MEDS: LEVOTHYROXINE 75 MCG TAB PO SCH (06:26)
[2017-07-28] MEDS ORDERED: MULTIVITAMIN TAB PO SCH (08:00)
[2017-07-28 08:02] VITALS: BP 143/80; PULSE 67; TEMP 36.7; O2SAT 91
--- NOTE | 2017-07-28 08:43 | Orthopedic Progress Note ---
Orthopedic Progress Note Date of Service Jul 28, 2017. Subjective Additional Notes: Patient reports her arm is feeling better this morning, can make a fist more easily. Pain improved. No fevers/chills. Objective L upper extremity: redness and swelling much improved from yesterday. Able to make a composite fist. Mild tenderness along the dorsal radial forearm, improved from yesterday. NVI. Date Time Temp Pulse Resp B/P (MAP) Pulse Ox O2 Delivery O2 Flow Rate FiO2 07/28/17 08:02 36.7 67 18 143/80 (101) 91 Room Air 07/28/17 00:15 Room Air 07/27/17 22:47 37.0 69 18 147/81 92 Room Air 07/27/17 22:22 37.0 69 18 147/81 (103) 92 Room Air 07/27/17 20:03 36.7 79 20 177/76 (109) 90 Room Air 07/27/17 18:40 71 17 143/83 97 Room Air 07/27/17 16:48 69 07/27/17 16:40 71 22 160/73 96 07/27/17 15:04 70 15 154/74 99 Room Air 07/27/17 14:18 36.7 67 17 130/76 98 Room Air Laboratory Results 24 Hours: Test 07/27/17 14:46 07/28/17 08:32 White Blood Count 10.88 K/uL Red Blood Count 3.32 M/uL Hemoglobin 10.0 g/dL Hematocrit 31.2 % Mean Corpuscular Volume 94.0 fL Mean Corpuscular Hemoglobin 30.1 pg Mean Corpuscular Hemoglobin Concent 32.1 g/dl Platelet Count 204 K/uL Mean Platelet Volume 10.6 fL Neutrophils (%) (Auto) 78.4 % Lymphocytes (%) (Auto) 9.3 % Monocytes (%) (Auto) 9.3 % Eosinophils (%) (Auto) 2.3 % Basophils (%) (Auto) 0.5 % Neutrophils # (Auto) 8.54 K/uL Lymphocytes # (Auto) 1.01 K/uL Monocytes # (Auto) 1.01 K/uL Eosinophils # (Auto) 0.25 K/uL Basophils # (Auto) 0.05 K/uL Prothromb Time International Ratio 1.0 Prothrombin Time 10.7 SECONDS Additional Notes: US yesterday showed no DVT, old hematoma adjacent to wrist, no abscess Assessment & Plan Assessment: L forearm cellulitis, improving on IV abx Plan: Continue antibiotics per internal medicine No indication for surgical drainage. Orthopaedics will continue to follow
[2017-07-28] MEDS: ASPIRIN 81 MG ECTAB PO SCH (08:57)
[2017-07-28] MEDS: NEPHROCAPS PO SCH (08:58)
[2017-07-28] MEDS: CHOLECALCIFEROL 1000 INTER.UNIT TAB PO SCH (08:58)
[2017-07-28] MEDS: ASCORBIC ACID 500 MG TAB PO SCH ×2 (08:58→21:22)
[2017-07-28] MEDS: CEROVITE ADV FORMULA TAB PO SCH ×2 (08:59→21:20)
[2017-07-28] MEDS: AMIODARONE 200 MG TAB PO SCH (08:59)
[2017-07-28] MEDS: MAGNESIUM OXIDE 400 MG TAB PO SCH (08:59)
[2017-07-28] MEDS: CALCIUM 600MG + VIT D 400 IU TAB PO SCH (08:59)
[2017-07-28 09:01] LABS: BASO % 0.3 %; BASO ABS # 0.03 K/uL (0-0.2); EOS % 2.4 %; EOS ABS # 0.23 K/uL (0-0.5); HEMATOCRIT 31.1 % (37-47); HEMOGLOBIN 9.8 g/dL (12.0-16.0); IG# 0.02 K/uL (0.00-0.02); LYMPH % 11.5 %; LYMPH ABS # 1.09 K/uL (1.2-3.4); MEAN CELL VOLUME 93.4 fL (80-100); MEAN CORPUSCULAR HEMOGLOBIN 29.4 pg (25-34); MEAN CORPUSCULAR HGB CONC 31.5 g/dl (32-36); MEAN PLATELET VOLUME 10.8 fL (7.4-10.4); MONO % 7.9 %; MONO ABS # 0.75 K/uL (0.11-0.59); NEUT % 77.7 %; NEUT ABS # 7.34 K/uL (1.4-6.5); PLATELET COUNT 203 K/uL (130-400); RED CELL DISTRIBUTION WIDTH SD 47.6 fL (36.4-46.3); WHITE BLOOD COUNT 9.46 K/uL (4.8-10.8)
[2017-07-28] MEDS: FERROUS SULFATE ELIX 220MG/5ML PO SCH ×2 (09:11→21:23)
[2017-07-28 09:26] LABS: CALCIUM 8.4 mg/dl (8.5-10.1); CREATININE 0.65 mg/dl (0.60-1.20); POTASSIUM 3.9 mmol/L (3.5-5.1)
[2017-07-28 09:59] VITALS: O2SAT 91
--- NOTE | 2017-07-28 13:17 | Medical Student: [facility] ---
Med Student Progress Note Date of Service Jul 28, 2017. Subjective Patient says she slept well overnight. She is sitting comfortably this morning and appears non-toxic. She says she felt like her left upper limb was slightly better from yesterday. She complains of some pain when brandon the fingers of her left hand, although she says the pain is less today than yesterday, and has increased range of motion compared to yesterday. She notices some tightness of the skin of her lateral forearm. She becomes very slightly tearful when talking with me this morning. She denies chest pain, shortness of breath, fever, chills, nausea, vomiting. Review of Systems Respiratory: No cough, No sputum, No shortness of breath Cardiac: No chest pain Abdomen: No pain, No nausea, No vomiting Musculoskeletal: + swelling (left upper extremity) Skin: + new/changing skin lesions (left upper extremity), + color change (left upper extremity) Objective Vital Signs Date Time Temp Pulse Resp B/P (MAP) Pulse Ox O2 Delivery O2 Flow Rate FiO2 07/28/17 09:59 91 Room Air 07/28/17 08:02 36.7 67 18 143/80 (101) 91 Room Air 07/28/17 00:15 Room Air 07/27/17 22:47 37.0 69 18 147/81 92 Room Air 07/27/17 22:22 37.0 69 18 147/81 (103) 92 Room Air 07/27/17 20:03 36.7 79 20 177/76 (109) 90 Room Air 07/27/17 18:40 71 17 143/83 97 Room Air 07/27/17 16:48 69 07/27/17 16:40 71 22 160/73 96 07/27/17 15:04 70 15 154/74 99 Room Air 07/27/17 14:18 36.7 67 17 130/76 98 Room Air Physical Exam General Appearance: WD/WN Respiratory/Chest: chest non-tender, lungs clear, normal breath sounds, no respiratory distress, no accessory muscle use Cardiovascular: regular rate, rhythm, no edema, no gallop, no JVD Extremities: + swelling, + pertinent finding (Red and swollen left forarm extending to hand and fingers and up the upper arm. Skin tight on lateral aspect of upper forearm. Pain when making a fist. Pain on palpation of the left elbow. ) Laboratory Results Last 24 Hours Test 07/27/17 14:46 07/28/17 08:32 White Blood Count 10.88 K/uL 9.46 K/uL Red Blood Count 3.32 M/uL 3.33 M/uL Hemoglobin 10.0 g/dL 9.8 g/dL Hematocrit 31.2 % 31.1 % Mean Corpuscular Volume 94.0 fL 93.4 fL Mean Corpuscular Hemoglobin 30.1 pg 29.4 pg Mean Corpuscular Hemoglobin Concent 32.1 g/dl 31.5 g/dl Platelet Count 204 K/uL 203 K/uL Mean Platelet Volume 10.6 fL 10.8 fL Neutrophils (%) (Auto) 78.4 % 77.7 % Lymphocytes (%) (Auto) 9.3 % 11.5 % Monocytes (%) (Auto) 9.3 % 7.9 % Eosinophils (%) (Auto) 2.3 % 2.4 % Basophils (%) (Auto) 0.5 % 0.3 % Neutrophils # (Auto) 8.54 K/uL 7.34 K/uL Lymphocytes # (Auto) 1.01 K/uL 1.09 K/uL Monocytes # (Auto) 1.01 K/uL 0.75 K/uL Eosinophils # (Auto) 0.25 K/uL 0.23 K/uL Basophils # (Auto) 0.05 K/uL 0.03 K/uL RDW Standard Deviation 48.4 fL 47.6 fL RDW Coefficient of Variation 14.1 % 14.0 % Immature Granulocyte % (Auto) 0.2 % 0.2 % Immature Granulocyte # (Auto) 0.02 K/uL 0.02 K/uL Erythrocyte Sedimentation Rate 43 mm/hr Prothrombin Time 10.7 SECONDS Prothromb Time International Ratio 1.0 Activated Partial Thromboplast Time 24.1 SECONDS Partial Thromboplastin Ratio 0.9 Sodium Level 140 mmol/L 140 mmol/L Potassium Level 3.9 mmol/L 3.9 mmol/L Chloride Level 108 mmol/L 109 mmol/L Carbon Dioxide Level 26 mmol/L 23 mmol/L Anion Gap 6.0 mmol/L 8.0 mmol/L Blood Urea Nitrogen 38 mg/dl 36 mg/dl Creatinine 0.80 mg/dl 0.65 mg/dl Est Creatinine Clear Calc Drug Dose 37.7 ml/min 48.8 ml/min Estimated GFR () 75.8 91.2 Estimated GFR (Non- 65.4 78.7 BUN/Creatinine Ratio 47.0 55.2 Random Glucose 95 mg/dl 85 mg/dl Calcium Level 9.1 mg/dl 8.4 mg/dl Medications Current Inpatient Medications Medications (Trade) Dose Ordered Sig/Dariela Route Start Time Stop Time Status Last Admin Dose Admin Enoxaparin Sodium (Lovenox Inj) 40 mg HS SQ 07/27/17 21:00 08/26/17 20:59 07/27/17 22:12 40 MG Acetaminophen (Tylenol Tab) 650 mg Q4H PRN PO 07/27/17 17:45 08/26/17 17:44 Polyethylene (Miralax Powder Packet) 17 gm DAILY PRN PO 07/27/17 17:45 08/26/17 17:44 Ondansetron HCl (Zofran Inj) 4 mg Q6H PRN IV 07/27/17 17:45 08/26/17 17:44 Acetaminophen/ Codeine Phosphate (Tylenol w/ Codeine #3 Tab) 1 tab Q4H PRN PO 07/27/17 17:45 08/26/17 17:44 07/27/17 22:26 1 TAB Amiodarone HCl (Cordarone Tab) 200 mg MoWeFr@0900 PO 07/28/17 09:00 08/27/17 08:59 07/28/17 08:59 200 MG Ascorbic Acid (Vitamin C Tab) 500 mg BID PO 07/27/17 20:01 08/26/17 20:59 07/28/17 08:58 500 MG Aspirin (Ecotrin Tab) 81 mg DAILY PO 07/28/17 08:00 08/27/17 08:59 07/28/17 08:57 81 MG Cholecalciferol (Vitamin D Tab) 1,000 inter.unit DAILY PO 07/28/17 08:00 08/27/17 08:59 07/28/17 08:58 1,000 INTER.UNIT Levothyroxine Sodium (Synthroid Tab) 75 mcg DAILYBB PO 07/28/17 06:30 08/27/17 06:59 07/28/17 06:26 75 MCG Mirtazapine (Remeron Tab) 15 mg HS PO 07/27/17 21:00 08/26/17 20:59 07/27/17 22:12 15 MG Vitamin B Complex/ Vit C/Folic Acid (Nephrocaps) 1 cap QAM PO 07/28/17 08:00 08/27/17 08:59 07/28/17 08:58 1 CAP Calcium/Vitamin D (Caltrate Plus Tab) 1 tab DAILY PO 07/28/17 08:00 08/27/17 07:59 07/28/17 08:59 1 TAB Magnesium Oxide (Mag-Ox Tab) 400 mg DAILY PO 07/28/17 08:00 08/27/17 07:59 07/28/17 08:59 400 MG Multivitamins/ Minerals (Multivitamin W/ Minerals Tab) 1 tab BID PO 07/28/17 08:00 08/27/17 07:59 07/28/17 08:59 1 TAB Ferrous Sulfate (Feosol Elix) 220 mg BID PO 07/27/17 22:00 08/26/17 21:59 07/28/17 09:11 220 MG Ceftriaxone Sodium 1 gm/ Dextrose 50 ml @ 100 mls/hr Q24H IV 07/27/17 22:00 08/06/17 21:59 07/28/17 01:00 100 MLS/HR Miscellaneous Information (Consult) 1 ea UD PRN N/A 07/27/17 17:45 08/26/17 17:44 Miscellaneous (Iv Fluids Completed) 1 ea PRN PRN N/A 07/27/17 22:00 07/27/18 21:59 Hydralazine HCl (HydrALAZINE INJ) 10 mg Q8 PRN IV. 07/28/17 01:15 08/27/17 01:14 Assessment and Plan Assessment and Plan: Impression Patient is an 89 year old female with a 5 day history of left arm redness and swelling over the entire forearm and included the hand and tracked up to the posterior upper arm. The pain worsened over the last few days before the patient presented to an outpatient clinic and was told to go to the ED. Patient has a past medical history of hypothyroidism, hypertension, hyperlipidemia, and paroxysmal afib. Assessment/Plan: Left Arm Cellulitis/ Left olecranon bursitis -greater than 50% left upper limb involved, does not meet SIRS/sepsis criteria - WBC 10.8, will continue to monitor -Orthopedics consulted; consult appreciated. no drainage necessary -started on ancef in ED, then was on rocephin and vancomycin for 24 hrs; MRSA swab negative so will stop vancomycin and treat with rocephin only at this time - Erythema outlined in the ER with skin marker - Tylenol for pain - ESR of 43 Paroxysmal Afib -On amiodarone 200 mcg MWF and aspirin 81 mg Anemia - Hgb 9.8; has been 8-11 for at least last 6 years, stable, on iron supplementation Hypothyroidism - On levothyroxine 75 mcg daily History of Fall -obtain PT/OT consult Hypertension -BPs in hospital in upper 140s / 80s; continue to monitor -If BP >180 / >110, begin hydralazine 10mg IV Q8hrs
[2017-07-28 16:02] VITALS: O2SAT 91
[2017-07-28 16:16] VITALS: BP 140/76; PULSE 63; TEMP 37.2; O2SAT 93
--- NOTE | 2017-07-28 17:16 | Family Medicine Progress Note ---
Progress Note Date of Service Jul 28, 2017. Subjective Pt evaluation today including: conversation w/ patient, physical exam, chart review, lab review Pain: L arm pain PO Intake: NPO this AM Voiding: no voiding problems This AM pt reported improved erythema and tenderness to palpation of L elbow/ forearm/hand. O/w asymptomatic Constitutional: No fever, No chills Respiratory: No shortness of breath Cardiovascular: No chest pain Abdomen: No pain, No nausea, No vomiting Female : No dysuria Medications Current Inpatient Medications Medications (Trade) Dose Ordered Sig/Dariela Route Start Time Stop Time Status Last Admin Dose Admin Enoxaparin Sodium (Lovenox Inj) 40 mg HS SQ 07/27/17 21:00 08/26/17 20:59 07/27/17 22:12 40 MG Acetaminophen (Tylenol Tab) 650 mg Q4H PRN PO 07/27/17 17:45 08/26/17 17:44 Polyethylene (Miralax Powder Packet) 17 gm DAILY PRN PO 07/27/17 17:45 08/26/17 17:44 Ondansetron HCl (Zofran Inj) 4 mg Q6H PRN IV 07/27/17 17:45 08/26/17 17:44 Acetaminophen/ Codeine Phosphate (Tylenol w/ Codeine #3 Tab) 1 tab Q4H PRN PO 07/27/17 17:45 08/26/17 17:44 07/27/17 22:26 1 TAB Amiodarone HCl (Cordarone Tab) 200 mg MoWeFr@0900 PO 07/28/17 09:00 08/27/17 08:59 07/28/17 08:59 200 MG Ascorbic Acid (Vitamin C Tab) 500 mg BID PO 07/27/17 20:01 08/26/17 20:59 07/28/17 08:58 500 MG Aspirin (Ecotrin Tab) 81 mg DAILY PO 07/28/17 08:00 08/27/17 08:59 07/28/17 08:57 81 MG Cholecalciferol (Vitamin D Tab) 1,000 inter.unit DAILY PO 07/28/17 08:00 08/27/17 08:59 07/28/17 08:58 1,000 INTER.UNIT Levothyroxine Sodium (Synthroid Tab) 75 mcg DAILYBB PO 07/28/17 06:30 08/27/17 06:59 07/28/17 06:26 75 MCG Mirtazapine (Remeron Tab) 15 mg HS PO 07/27/17 21:00 08/26/17 20:59 07/27/17 22:12 15 MG Vitamin B Complex/ Vit C/Folic Acid (Nephrocaps) 1 cap QAM PO 07/28/17 08:00 08/27/17 08:59 07/28/17 08:58 1 CAP Calcium/Vitamin D (Caltrate Plus Tab) 1 tab DAILY PO 07/28/17 08:00 08/27/17 07:59 07/28/17 08:59 1 TAB Magnesium Oxide (Mag-Ox Tab) 400 mg DAILY PO 07/28/17 08:00 08/27/17 07:59 07/28/17 08:59 400 MG Multivitamins/ Minerals (Multivitamin W/ Minerals Tab) 1 tab BID PO 07/28/17 08:00 08/27/17 07:59 07/28/17 08:59 1 TAB Ferrous Sulfate (Feosol Elix) 220 mg BID PO 07/27/17 22:00 08/26/17 21:59 07/28/17 09:11 220 MG Ceftriaxone Sodium 1 gm/ Dextrose 50 ml @ 100 mls/hr Q24H IV 07/27/17 22:00 08/06/17 21:59 07/28/17 01:00 100 MLS/HR Miscellaneous (Iv Fluids Completed) 1 ea PRN PRN N/A 07/27/17 22:00 07/27/18 21:59 Hydralazine HCl (HydrALAZINE INJ) 10 mg Q8 PRN IV. 07/28/17 01:15 08/27/17 01:14 Objective Vital Signs Date Time Temp Pulse Resp B/P (MAP) Pulse Ox O2 Delivery O2 Flow Rate FiO2 07/28/17 16:16 37.2 63 18 140/76 (97) 93 Room Air 07/28/17 09:59 91 Room Air 07/28/17 08:02 36.7 67 18 143/80 (101) 91 Room Air 07/28/17 00:15 Room Air 07/27/17 22:47 37.0 69 18 147/81 92 Room Air 07/27/17 22:22 37.0 69 18 147/81 (103) 92 Room Air 07/27/17 20:03 36.7 79 20 177/76 (109) 90 Room Air 07/27/17 18:40 71 17 143/83 97 Room Air Physical Exam General Appearance: no apparent distress Eyes: normal inspection, sclerae normal Respiratory/Chest: lungs clear, normal breath sounds Cardiovascular: regular rate, rhythm, no murmur Abdomen: normal bowel sounds, non tender, soft Extremities: + pertinent finding (L olecranon bursa tense, erythematous and TTP ; posteior arm, forearm and dorsal hand erythematous, edematous and TTP) Neurologic/Psychiatric: alert, oriented x 3 Laboratory Results 07/28/17 08:32 Red Blood Count 3.33, Mean Corpuscular Volume 93.4, Mean Corpuscular Hemoglobin 29.4, Mean Corpuscular Hemoglobin Concent 31.5, Mean Platelet Volume 10.8, Neutrophils (%) (Auto) 77.7, Lymphocytes (%) (Auto) 11.5, Monocytes (%) (Auto) 7.9, Eosinophils (%) (Auto) 2.4, Basophils (%) (Auto) 0.3, Neutrophils # (Auto) 7.34, Lymphocytes # (Auto) 1.09, Monocytes # (Auto) 0.75, Eosinophils # (Auto) 0.23, Basophils # (Auto) 0.03 07/28/17 08:32 Test 07/28/17 08:32 White Blood Count 9.46 K/uL (4.8-10.8) Red Blood Count 3.33 M/uL (4.2-5.4) Hemoglobin 9.8 g/dL (12.0-16.0) Hematocrit 31.1 % (37-47) Mean Corpuscular Volume 93.4 fL (80-100) Mean Corpuscular Hemoglobin 29.4 pg (25-34) Mean Corpuscular Hemoglobin Concent 31.5 g/dl (32-36) Platelet Count 203 K/uL (130-400) Mean Platelet Volume 10.8 fL (7.4-10.4) Neutrophils (%) (Auto) 77.7 % Lymphocytes (%) (Auto) 11.5 % Monocytes (%) (Auto) 7.9 % Eosinophils (%) (Auto) 2.4 % Basophils (%) (Auto) 0.3 % Neutrophils # (Auto) 7.34 K/uL (1.4-6.5) Lymphocytes # (Auto) 1.09 K/uL (1.2-3.4) Monocytes # (Auto) 0.75 K/uL (0.11-0.59) Eosinophils # (Auto) 0.23 K/uL (0-0.5) Basophils # (Auto) 0.03 K/uL (0-0.2) RDW Standard Deviation 47.6 fL (36.4-46.3) RDW Coefficient of Variation 14.0 % (11.5-14.5) Immature Granulocyte % (Auto) 0.2 % Immature Granulocyte # (Auto) 0.02 K/uL (0.00-0.02) Anion Gap 8.0 mmol/L (3-11) Est Creatinine Clear Calc Drug Dose 48.8 ml/min Estimated GFR () 91.2 Estimated GFR (Non- 78.7 BUN/Creatinine Ratio 55.2 (10-20) Calcium Level 8.4 mg/dl (8.5-10.1) Date/Time Source Procedure Growth Status 07/27/17 20:56 Nasal MRSA DNA Surveillance Screen - Final Specimen Negative for MRSA by DNA Probe Complete Assessment and Plan 89 yoF with PMHx of HTN, HLD, paroxysmal Afib not on anticoagulation due to GI bleed in November 2015, AAA measuring 4.5 cm, anemia, hx rectal carcinoma with resection and XRT in 1991, diverticulosis, hypothyroidism, gait disturbance presenting with left olecranon bursitis with surrounding cellulitis encompassing > 50% of left upper extremity s/p falling on L arm 1 month ago. Left Arm Cellulitis/ Left olecranon bursitis - WBC 10.8 -> 9.96 - US doppler negative for VTE, nonvascular scan showing small seroma vs hematoma in the left wrist. - Continue Rocephin - Dced Vanco given neg MRSA swab - consulted Ortho - no need for I&D at this time - Pain control with Tylenol #3; pt uses this as outpatient a few times per week for chronic pain in low back - elevate arm above heart - ESR 43 Paroxysmal Afib/Hx of AAA (4.5 cm January 2016)/HTN/HLD - Continue home medications of digoxin 200 mcg MWF, asa 81 mg, not on statin therapy - Last echo was January 2016 with preserved EF of 60%. - Follows with Dr. Mortensen as an outpatient --IV hydralazine prn elevated BPs Hx rectal carcinoma Diverticulitis - Stable- Last BM yesterday Anemia - Stable, hgb 9.8, follow cbc, continue iron supplementation - Hgb range 8-11 on previous admissions Hypothyroidism - Cont levothyroxine 75 mcg daily Hx of Falls/gait disturbance - PT/OT evaluation - uses cane for ambulation DVT ppx: lovenox 40mg subQ CODE STATUS: FULL Disposition: From home, lives with , PT/OT Resident Involvement: Resident Care Provided Care Provided: Adult [facility] Medicine Reviewed: Pt Seen/Exam by Me History Resident Physician Supervision Note: I interviewed and examined the patient. Discussed with Dr. Pina and agree with findings and plan as documented in the note. Any exceptions or clarifications are listed here: Patient reports she feels better today. Remains afebrile. Vitals reviewed NAD, AAO x 1 RRR 2/6 JESSICA at [facility] CTAB no wcr Abd +BS soft NT ND Ext: left elbow with +edematous olecranon bursa with exquisite tenderness and erythema and now with small area of developing white fluctuance in the central area, with erythema and edema spread distally to hand, 2+ pitting minimally improved since yesterday; legs no edema 89 yo female with left septic olecranon bursitis with surrounding cellulitis encompassing > 50% of left upper extremity. Improving, fluctuance seems to be forming in the olecranon bursa -Continue MURALI Moyero as above -consult Ortho appreciated, if fluctuance increases, would appreciate possible aspiration or I&D -Continue to elevate limb above heart -Follow sedimentation rate along with CBC Elevated blood pressures -add on IV hydralazine prn elevated BPs, will not start daily antihypertensive at this time Documented By: Jeannie Cruz
[2017-07-28] MEDS ORDERED: VANCOMYCIN INJ 1,000 MG in SODIUM CHLORIDE 0.9% 250ML 250 ML IV SCH (18:00)
[2017-07-28] MEDS: MIRTAZAPINE TAB 15 MG TAB PO SCH (21:19)
[2017-07-28] MEDS: ENOXAPARIN 40 MG/0.4 ML SYR SQ SCH (21:19)
[2017-07-28 23:52] VITALS: BP 171/71; PULSE 73; TEMP 36.7; O2SAT 92
[2017-07-29] VITALS (10 sets, daily range): BP systolic 131–155; BP diastolic 69–106; PULSE 96–119; TEMP 36.5–36.8; O2SAT 91–97
[2017-07-29] MEDS: LEVOTHYROXINE 75 MCG TAB PO SCH (06:02)
[2017-07-29 08:30] LABS: BASO % 0.5 %; BASO ABS # 0.04 K/uL (0-0.2); EOS % 3.6 %; EOS ABS # 0.29 K/uL (0-0.5); HEMATOCRIT 33.3 % (37-47); HEMOGLOBIN 10.6 g/dL (12.0-16.0); IG# 0.01 K/uL (0.00-0.02); LYMPH % 12.3 %; LYMPH ABS # 0.99 K/uL (1.2-3.4); MEAN CELL VOLUME 92.2 fL (80-100); MEAN CORPUSCULAR HEMOGLOBIN 29.4 pg (25-34); MEAN CORPUSCULAR HGB CONC 31.8 g/dl (32-36); MEAN PLATELET VOLUME 10.8 fL (7.4-10.4); MONO % 9.8 %; MONO ABS # 0.79 K/uL (0.11-0.59); NEUT % 73.7 %; NEUT ABS # 5.93 K/uL (1.4-6.5); PLATELET COUNT 228 K/uL (130-400); RED CELL DISTRIBUTION WIDTH CV 13.7 % (11.5-14.5); RED CELL DISTRIBUTION WIDTH SD 46.2 fL (36.4-46.3); WHITE BLOOD COUNT 8.05 K/uL (4.8-10.8)
[2017-07-29 09:02] LABS: CALCIUM 8.8 mg/dl (8.5-10.1); CREATININE 0.78 mg/dl (0.60-1.20); POTASSIUM 3.8 mmol/L (3.5-5.1)
[2017-07-29] MEDS: CALCIUM 600MG + VIT D 400 IU TAB PO SCH (09:03)
[2017-07-29] MEDS: ASPIRIN 81 MG ECTAB PO SCH (09:03)
[2017-07-29] MEDS: CEROVITE ADV FORMULA TAB PO SCH ×2 (09:03→20:42)
[2017-07-29] MEDS: NEPHROCAPS PO SCH (09:03)
[2017-07-29] MEDS: MAGNESIUM OXIDE 400 MG TAB PO SCH (09:04)
[2017-07-29] MEDS: ASCORBIC ACID 500 MG TAB PO SCH ×2 (09:04→20:42)
[2017-07-29] MEDS: FERROUS SULFATE ELIX 220MG/5ML PO SCH ×2 (09:04→20:41)
[2017-07-29] MEDS: CHOLECALCIFEROL 1000 INTER.UNIT TAB PO SCH (09:05)
[2017-07-29] MEDS ORDERED: LIDOCAINE HCL 2% LOCAL 50ML VIAL ONE (10:56)
--- NOTE | 2017-07-29 14:01 | OPERATIVE REPORT ---
DATE OF OPERATION: 07/29/2017 PREPROCEDURE DIAGNOSIS: Left elbow septic olecranon bursitis. POSTPROCEDURE DIAGNOSIS: Same. SURGEON: Rudy Murray MD INDICATIONS: Ms. Donahue is a pleasant 89-year-old female who about 5 days ago started getting some redness in her left forearm. This increased to the point where she saw her primary care physician, who then referred her on to see me on Wednesday of this week. I sent her to the Emergency Room for ultrasound of her arm to rule out a DVT as well as to look for any soft tissue abscesses. There was no report of an abscess at the olecranon bursa at that time. There was a small hematoma noted in the dorsal distal forearm. She was admitted to the medical service for IV antibiotics. These have helped improve the redness and swelling in her arm significantly. However, she still has an area of redness over the olecranon bursa with visible purulence under pressure underneath the skin. There is erythema surrounding this area for a diameter of approximately a 2 inches. Irrigation and drainage is indicated to eradicate the infection as well as to obtain cultures to tailor her antibiotic therapy. DESCRIPTION OF PROCEDURE: After obtaining verbal informed consent, the patient's left arm was prepped with Betadine and sterilely draped. Skin was anesthetized with 10 mL of 2% lidocaine without epinephrine. When she was numb, a 1-cm amarilis was made in the skin with a 15 blade scalpel directly over the olecranon bursa. Immediate gross purulence was encountered of approximately 10 mL. Cultures were obtained x2 sets, which were sent for Gram stain, aerobic and anaerobic cultures. Purulence was expressed out of the wound. Once all the purulence had been expressed, we then irrigated the wound out with 2 liters of normal saline into a sterile basin. The wound was then packed with quarter inch packing strips. The wound was then covered with 4 x 4's and an Marco wrap extending all the way down to her wrist. POSTPROCEDURE COURSE: The patient will continue on IV antibiotics per the medical service. We will follow her cultures. Tomorrow morning, I will check on her wound and allow her to shower after removing the packing strips. Nursing will then repack the wound with a quarter inch packing strips and then cover with 4 x 4's and Marco wrap. I anticipate she need another day or two in the hospital. I attest to the content of the Intraoperative Record and any orders documented therein. Any exceptions are noted below. FLORENCE
[2017-07-29] MEDS ORDERED: DILTIAZEM HCL 30 MG TAB PO ONE (17:05)
[2017-07-29] MEDS ORDERED: DILTIAZEM HCL 30 MG TAB PO SCH (20:00)
[2017-07-29] MEDS: MIRTAZAPINE TAB 15 MG TAB PO SCH (20:42)
[2017-07-29] MEDS: ENOXAPARIN 40 MG/0.4 ML SYR SQ SCH (20:43)
[2017-07-29] MEDS: CEFTRIAXONE SOD INJ 1 GM in DEXTROSE 5% ADD-VANTAGE 50ML 50 ML IV SCH (22:05)
--- NOTE | 2017-07-29 22:31 | Family Medicine Progress Note ---
Progress Note Date of Service Jul 29, 2017. Subjective Pt evaluation today including: conversation w/ patient, physical exam, chart review, lab review Pain: L arm tender to touch but improving PO Intake: tolerating Voiding: no voiding problems This AM pt reports continued L arm tenderness to touch, erythema and edema but improving overall however, olecranon bursa more tender/swollen Constitutional: No fever, No chills Respiratory: No shortness of breath Cardiovascular: No chest pain Abdomen: No pain, No nausea, No vomiting Musculoskeletal: + problem reported (L arm/elbow pain) Female : No dysuria Medications Current Inpatient Medications Medications (Trade) Dose Ordered Sig/Dariela Route Start Time Stop Time Status Last Admin Dose Admin Enoxaparin Sodium (Lovenox Inj) 40 mg HS SQ 07/27/17 21:00 08/26/17 20:59 07/29/17 20:43 40 MG Acetaminophen (Tylenol Tab) 650 mg Q4H PRN PO 07/27/17 17:45 08/26/17 17:44 07/28/17 21:27 650 MG Polyethylene (Miralax Powder Packet) 17 gm DAILY PRN PO 07/27/17 17:45 08/26/17 17:44 Ondansetron HCl (Zofran Inj) 4 mg Q6H PRN IV 07/27/17 17:45 08/26/17 17:44 Acetaminophen/ Codeine Phosphate (Tylenol w/ Codeine #3 Tab) 1 tab Q4H PRN PO 07/27/17 17:45 08/26/17 17:44 07/27/17 22:26 1 TAB Amiodarone HCl (Cordarone Tab) 200 mg MoWeFr@0900 PO 07/28/17 09:00 08/27/17 08:59 07/28/17 08:59 200 MG Ascorbic Acid (Vitamin C Tab) 500 mg BID PO 07/27/17 20:01 08/26/17 20:59 07/29/17 20:42 500 MG Aspirin (Ecotrin Tab) 81 mg DAILY PO 07/28/17 08:00 08/27/17 08:59 07/29/17 09:03 81 MG Cholecalciferol (Vitamin D Tab) 1,000 inter.unit DAILY PO 07/28/17 08:00 08/27/17 08:59 07/29/17 09:05 1,000 INTER.UNIT Levothyroxine Sodium (Synthroid Tab) 75 mcg DAILYBB PO 07/28/17 06:30 08/27/17 06:59 07/29/17 06:02 75 MCG Mirtazapine (Remeron Tab) 15 mg HS PO 07/27/17 21:00 08/26/17 20:59 07/29/17 20:42 15 MG Vitamin B Complex/ Vit C/Folic Acid (Nephrocaps) 1 cap QAM PO 07/28/17 08:00 08/27/17 08:59 07/29/17 09:03 1 CAP Calcium/Vitamin D (Caltrate Plus Tab) 1 tab DAILY PO 07/28/17 08:00 08/27/17 07:59 07/29/17 09:03 1 TAB Magnesium Oxide (Mag-Ox Tab) 400 mg DAILY PO 07/28/17 08:00 08/27/17 07:59 07/29/17 09:04 400 MG Multivitamins/ Minerals (Multivitamin W/ Minerals Tab) 1 tab BID PO 07/28/17 08:00 08/27/17 07:59 07/29/17 20:42 1 TAB Ferrous Sulfate (Feosol Elix) 220 mg BID PO 07/27/17 22:00 08/26/17 21:59 07/29/17 20:41 220 MG Ceftriaxone Sodium 1 gm/ Dextrose 50 ml @ 100 mls/hr Q24H IV 07/27/17 22:00 08/06/17 21:59 07/29/17 22:05 100 MLS/HR Miscellaneous (Iv Fluids Completed) 1 ea PRN PRN N/A 07/27/17 22:00 07/27/18 21:59 Hydralazine HCl (HydrALAZINE INJ) 10 mg Q8 PRN IV. 07/28/17 01:15 08/27/17 01:14 Diltiazem HCl (Cardizem Tab) 30 mg TID PO 07/29/17 20:00 08/28/17 19:59 07/29/17 20:41 30 MG Objective Vital Signs Date Time Temp Pulse Resp B/P (MAP) Pulse Ox O2 Delivery O2 Flow Rate FiO2 07/29/17 20:00 Room Air 07/29/17 18:22 36.5 117 18 146/106 (119) 95 Room Air 07/29/17 17:32 117 146/106 (119) 07/29/17 17:30 36.5 119 18 95 07/29/17 16:05 91 Room Air 07/29/17 15:26 36.5 119 18 131/69 (89) 95 Room Air 07/29/17 10:43 110 155/85 (108) 97 Room Air 07/29/17 10:19 99 07/29/17 09:17 91 Room Air 07/29/17 08:02 36.5 110 18 153/80 (104) 94 Room Air 07/29/17 00:30 Room Air 07/28/17 23:52 36.7 73 20 171/71 (104) 92 Room Air Physical Exam General Appearance: no apparent distress Eyes: normal inspection, sclerae normal Respiratory/Chest: lungs clear, normal breath sounds Cardiovascular: regular rate, rhythm Abdomen: normal bowel sounds, non tender, soft Extremities: non-tender, no pedal edema, + pertinent finding (improved L hand/ arm erythema, edema and TTP; worsened edema/erythema/TTP over olecranon bursa with lesion) Laboratory Results 07/29/17 08:09 Red Blood Count 3.61, Mean Corpuscular Volume 92.2, Mean Corpuscular Hemoglobin 29.4, Mean Corpuscular Hemoglobin Concent 31.8, Mean Platelet Volume 10.8, Neutrophils (%) (Auto) 73.7, Lymphocytes (%) (Auto) 12.3, Monocytes (%) (Auto) 9.8, Eosinophils (%) (Auto) 3.6, Basophils (%) (Auto) 0.5, Neutrophils # (Auto) 5.93, Lymphocytes # (Auto) 0.99, Monocytes # (Auto) 0.79, Eosinophils # (Auto) 0.29, Basophils # (Auto) 0.04 07/29/17 22:53 Test 07/29/17 08:09 07/29/17 22:53 White Blood Count 8.05 K/uL (4.8-10.8) Red Blood Count 3.61 M/uL (4.2-5.4) Hemoglobin 10.6 g/dL (12.0-16.0) Hematocrit 33.3 % (37-47) Mean Corpuscular Volume 92.2 fL (80-100) Mean Corpuscular Hemoglobin 29.4 pg (25-34) Mean Corpuscular Hemoglobin Concent 31.8 g/dl (32-36) Platelet Count 228 K/uL (130-400) Mean Platelet Volume 10.8 fL (7.4-10.4) Neutrophils (%) (Auto) 73.7 % Lymphocytes (%) (Auto) 12.3 % Monocytes (%) (Auto) 9.8 % Eosinophils (%) (Auto) 3.6 % Basophils (%) (Auto) 0.5 % Neutrophils # (Auto) 5.93 K/uL (1.4-6.5) Lymphocytes # (Auto) 0.99 K/uL (1.2-3.4) Monocytes # (Auto) 0.79 K/uL (0.11-0.59) Eosinophils # (Auto) 0.29 K/uL (0-0.5) Basophils # (Auto) 0.04 K/uL (0-0.2) RDW Standard Deviation 46.2 fL (36.4-46.3) RDW Coefficient of Variation 13.7 % (11.5-14.5) Immature Granulocyte % (Auto) 0.1 % Immature Granulocyte # (Auto) 0.01 K/uL (0.00-0.02) Erythrocyte Sedimentation Rate 40 mm/hr (0-21) Anion Gap 6.0 mmol/L (3-11) Est Creatinine Clear Calc Drug Dose 41.2 ml/min Estimated GFR () 79.3 Estimated GFR (Non- 68.5 BUN/Creatinine Ratio 31.9 (10-20) Calcium Level 8.4 mg/dl (8.5-10.1) Assessment and Plan 89 yoF with PMHx of HTN, HLD, paroxysmal Afib not on anticoagulation due to GI bleed in November 2015, AAA measuring 4.5 cm, anemia, hx rectal carcinoma with resection and XRT in 1991, diverticulosis, hypothyroidism, gait disturbance presenting with left olecranon bursitis with surrounding cellulitis encompassing > 50% of left upper extremity s/p falling on L arm 1 month ago. Left Arm Cellulitis/ Left olecranon bursitis - WBC 10.8 -> 8.05 - US doppler negative for VTE, nonvascular scan showing small seroma vs hematoma in the left wrist. - Continue Rocephin day 2 - Dced Vanco given neg MRSA swab - consulted Ortho - I&D olecranon bursa today - drained 10ml purulent fluid - Pain control with Tylenol #3; pt uses this as outpatient a few times per week for chronic pain in low back - elevate arm above heart - ESR 40 Paroxysmal Afib/Hx of AAA (4.5 cm January 2016)/HTN/HLD Tachycardic and in Afib today - On telemetry - Started on Diltiazem 30mg TID PO - Sees Dr. Mortensen and metoprolol causes bradycardia/symptoms - Consulted cardiology - Continue home medications of amiodarone 200 mcg MWF, asa 81 mg, not on statin therapy - Last echo was January 2016 with preserved EF of 60%. --IV hydralazine prn elevated BPs Hx rectal carcinoma Diverticulitis - Stable Anemia - Stable, hgb 10.6, follow cbc, continue iron supplementation - Hgb range 8-11 on previous admissions Hypothyroidism - Cont levothyroxine 75 mcg daily Hx of Falls/gait disturbance - PT/OT evaluation - uses cane for ambulation - PT: home PT to work on gait/balance/functional mobility; use roller walker for home and outside - OT: Lives with . Family proves support. Home health recommended DVT ppx: lovenox 40mg subQ CODE STATUS: FULL Disposition: From home, lives with Resident Involvement: Resident Care Provided Care Provided: Adult Hospital Medicine Reviewed: Pt Seen/Exam by Me History Resident Physician Supervision Note: I interviewed and examined the patient. Discussed with Dr. Pina and agree with findings and plan as documented in the note. Any exceptions or clarifications are listed here: Patient had incision and drainage of her left olecranon septic bursitis earlier today and feels some pain there but it feels better overall in the elbow and arm. However, it appears she has been tachycardic since this morning. She denies any chest pain, no shortness of breath, no heart palpitations. In discussion with the patient and her son and at the bedside, as well as review of her inpatient and outpatient records, she states that she was taken off of anticoagulation several years ago after having recurrent history intestinal bleeding. Vitals reviewed NAD, AAO Irregularly irregular with tachycardia 2/6 JESSICA at [facility] no wcr Abd +BS soft NT ND Ext: Left elbow and forearm to the wrist are now bandaged with an Marco wrap and not removed, hand without erythema, but with 1+ pitting edema 89 yo female with left septic olecranon bursitis with surrounding cellulitis encompassing > 50% of left upper extremity. Improving, fluctuance was forming in over the olecranon bursa-now status post I&D with 10 ML's of purulent drainage which has been sent for culture-I discussed with the lab-it appears the culture could be found under a different encounter visit from this hospitalization, however they do have it cultured in the lab -Continue MURALI Moyer as above -consult Ortho appreciated -Continue to elevate limb above heart -Follow sedimentation rate along with CBC-ESR is now trending downward Now with rapid atrial fibrillation-not on anticoagulation for history of recurrent GI bleeds. Stable at this time. Will start by mouth diltiazem 30 mg every 8, transfer to telemetry for continuous cardiac monitoring, consult cardiology. Will not anticoagulate based on history of recurrent GI bleeding on anticoagulation Documented By: Jeannie Cruz
[2017-07-29] MEDS ORDERED: METOPROLOL TARTRATE 1 MG/ML VIAL IV STA (22:57)
[2017-07-29 23:20] LABS: BLOOD UREA NITROGEN 25 mg/dl (7-18); CALCIUM 8.4 mg/dl (8.5-10.1); CARBON DIOXIDE 26 mmol/L (21-32); CREATININE 0.77 mg/dl (0.60-1.20); GLUCOSE 102 mg/dl (70-99); POTASSIUM 3.9 mmol/L (3.5-5.1); SODIUM 140 mmol/L (136-145)
[2017-07-30] VITALS (7 sets, daily range): BP systolic 110–159; BP diastolic 73–102; PULSE 73–120; TEMP 36.5–37; O2SAT 91–96
[2017-07-30] MEDS ORDERED: POTASSIUM CITRATE 10 MEQ TAB PO ONE (00:45)
[2017-07-30] MEDS: LEVOTHYROXINE 75 MCG TAB PO SCH (05:51)
[2017-07-30] MEDS: CHOLECALCIFEROL 1000 INTER.UNIT TAB PO SCH (07:41)
[2017-07-30] MEDS: CEROVITE ADV FORMULA TAB PO SCH ×2 (07:41→20:35)
[2017-07-30] MEDS: NEPHROCAPS PO SCH (07:41)
[2017-07-30] MEDS: ASCORBIC ACID 500 MG TAB PO SCH ×2 (07:42→20:35)
[2017-07-30] MEDS: ASPIRIN 81 MG ECTAB PO SCH (07:42)
[2017-07-30] MEDS: AMIODARONE 200 MG TAB PO SCH ×2 (07:42→20:35)
[2017-07-30] MEDS: CALCIUM 600MG + VIT D 400 IU TAB PO SCH (07:42)
[2017-07-30] MEDS: FERROUS SULFATE ELIX 220MG/5ML PO SCH ×2 (07:43→21:19)
[2017-07-30] MEDS: MAGNESIUM OXIDE 400 MG TAB PO SCH (07:43)
[2017-07-30 08:04] LABS: BASO % 0.5 %; BASO ABS # 0.04 K/uL (0-0.2); EOS % 4.6 %; EOS ABS # 0.36 K/uL (0-0.5); HEMATOCRIT 35.7 % (37-47); HEMOGLOBIN 11.5 g/dL (12.0-16.0); IG# 0.02 K/uL (0.00-0.02); LYMPH % 18.5 %; LYMPH ABS # 1.44 K/uL (1.2-3.4); MEAN CELL VOLUME 91.5 fL (80-100); MEAN CORPUSCULAR HEMOGLOBIN 29.5 pg (25-34); MEAN CORPUSCULAR HGB CONC 32.2 g/dl (32-36); MEAN PLATELET VOLUME 11.4 fL (7.4-10.4); MONO % 11.2 %; MONO ABS # 0.87 K/uL (0.11-0.59); NEUT % 64.9 %; NEUT ABS # 5.04 K/uL (1.4-6.5); PLATELET COUNT 297 K/uL (130-400); RED CELL DISTRIBUTION WIDTH CV 13.8 % (11.5-14.5); RED CELL DISTRIBUTION WIDTH SD 45.9 fL (36.4-46.3); WHITE BLOOD COUNT 7.77 K/uL (4.8-10.8)
[2017-07-30 08:37] LABS: CALCIUM 9.2 mg/dl (8.5-10.1); CREATININE 0.78 mg/dl (0.60-1.20); POTASSIUM 4.2 mmol/L (3.5-5.1)
--- NOTE | 2017-07-30 08:38 | Orthopedic Progress Note ---
Orthopedic Progress Note Date of Service Jul 30, 2017. Subjective Additional Notes: Elbow feeling much better today after I&D yesterday. Transferred to telemetry for A fib. She is upset because one of the hospital staff was rude to her this morning, and wants to go home. Objective L elbow: packing removed. Small amount of purulence (approx 2 cc) expressed from wound. Redness and swelling much improved from yesterday. NVI Date Time Temp Pulse Resp B/P (MAP) Pulse Ox O2 Delivery O2 Flow Rate FiO2 07/30/17 07:45 153/93 (113) 07/30/17 07:27 36.7 110 18 159/102 (121) 96 Room Air 07/30/17 04:00 Room Air 07/30/17 04:00 36.7 112 20 110/87 (95) 94 Room Air 07/30/17 00:00 Room Air 07/29/17 23:22 96 141/83 07/29/17 23:07 36.8 96 18 141/83 (102) 93 Room Air 07/29/17 20:00 Room Air 07/29/17 18:22 36.5 117 18 146/106 (119) 95 Room Air 07/29/17 17:32 117 146/106 (119) 07/29/17 17:30 36.5 119 18 95 07/29/17 16:05 91 Room Air 07/29/17 15:26 36.5 119 18 131/69 (89) 95 Room Air 07/29/17 10:43 110 155/85 (108) 97 Room Air 07/29/17 10:19 99 07/29/17 09:17 91 Room Air Laboratory Results 24 Hours: Test 07/30/17 07:08 White Blood Count 7.77 K/uL Red Blood Count 3.90 M/uL Hemoglobin 11.5 g/dL Hematocrit 35.7 % Mean Corpuscular Volume 91.5 fL Mean Corpuscular Hemoglobin 29.5 pg Mean Corpuscular Hemoglobin Concent 32.2 g/dl Platelet Count 297 K/uL Mean Platelet Volume 11.4 fL Neutrophils (%) (Auto) 64.9 % Lymphocytes (%) (Auto) 18.5 % Monocytes (%) (Auto) 11.2 % Eosinophils (%) (Auto) 4.6 % Basophils (%) (Auto) 0.5 % Neutrophils # (Auto) 5.04 K/uL Lymphocytes # (Auto) 1.44 K/uL Monocytes # (Auto) 0.87 K/uL Eosinophils # (Auto) 0.36 K/uL Basophils # (Auto) 0.04 K/uL Assessment & Plan Assessment: L forearm septic olecranon bursitis, s/p I&D, improving Plan: Nursing to pack wound daily with 1/4 inch strips, cover with 4x4 and YOLANDA wrap. Recommend daily C-reactive protein to monitor infection response to treatment Continue antibiotics per internal medicine Orthopaedics will continue to follow
[2017-07-30] MEDS ORDERED: POTASSIUM CITRATE 10 MEQ TAB PO SCH (09:00)
[2017-07-30] MEDS ORDERED: DILTIAZEM HCL 60 MG TAB PO SCH (09:00)
--- NOTE | 2017-07-30 10:02 | CARDIOLOGY CONSULTATION ---
DATE OF CONSULTATION: 07/30/2017 DATE OF CONSULTATION: 07/30/2017 PERTINENT HISTORY: Mrs. Donahue is an 89-year-old white female admitted on the with left olecranon bursitis with associated cellulitis. The patient developed atrial fibrillation with rapid ventricular response, and therefore, this consultation was ordered. Of note, I follow the patient in the outpatient setting. The patient was in her usual state of health until she suffered a fall several days prior to presentation. She developed discomfort and swelling in the left elbow and forearm. She presented to the Emergency Room for hospital admission. The patient underwent an I&D of her olecranon bursitis. This was apparently purulent according to the report. The patient was noted to have a rapid and irregular pulse and EKG revealed atrial fibrillation with a rapid ventricular response. The patient was started on oral diltiazem at 6 mg t.i.d. then she was transferred to the telemetry unit. The patient has a history of paroxysmal atrial fibrillation. She was started on amiodarone and metoprolol in the spring. Because of complaints of an unsteady gait, and sinus bradycardia following cardioversion, her metoprolol was discontinued and her Amiodarone dose decreased to 200 mg every Wednesday, Wednesday, Wednesday back in April 2016. She was maintained on oral anticoagulation; however, had a significant GI bleed in November 2015 and her anticoagulation was discontinued. The patient also has a history of an ascending thoracic aneurysm. It measured 4.5 cm in diameter on an echocardiogram in January 2016. This was a stable finding. Currently, the patient is resting comfortably in bed without complaints. She does have an occasional palpitation. PAST MEDICAL HISTORY: 1. Hypertension. 2. Left ventricular hypertrophy. 3. Hypercholesterolemia. 4. Paroxysmal atrial fibrillation - no coagulation due to GI bleed November 2015. 5. Moderate mitral regurgitation. 6. Mild aortic insufficiency. 7. Ascending thoracic aortic dilatation -- 4.5 cm -- 01/2016. 8. Remote history of DVT/PE. 9. Hypothyroidism. 10. Osteoporosis. 11. COPD. 12. Anxiety. 13. History of rectal carcinoma. 14. History of colonic resection and radiation therapy, 1991. 15. Vitamin D deficiency. 16. Cholecystectomy 17. Total abdominal hysterectomy and bilateral salpingo-oophorectomy. MEDICATIONS: 1. Amiodarone 200 mg every Wednesday, Wednesday, Wednesday. 2. Diltiazem 60 mg t.i.d. 3. Magnesium oxide 400 mg daily. 4. Aspirin 81 mg per day. 5. Lovenox 40 mg subQ daily. 6. Synthroid 0.075 mg daily. 7. Iron sulfate 220 mg b.i.d. 8. Remeron 15 mg at bedtime. 9. Ceftriaxone 1 gram IV daily. ALLERGIES: RED DYE. SOCIAL HISTORY: The patient is and lives with her . Does tobacco or alcohol. FAMILY HISTORY: Noncontributory. REVIEW OF SYSTEMS: A 10-point review of systems is negative except for that described above. PHYSICAL EXAMINATION: GENERAL: Well-developed, well-nourished elderly white female seated at the bedside without complaints. VITAL SIGNS: Blood pressure is 153/93 with an irregular pulse of 100-110. Respiratory rate is 18. The patient is afebrile at 36.7 degrees Celsius. Saturations 96% on room air. HEAD, EYES, EARS, NOSE, AND THROAT: Negative. NECK: Supple with full carotid upstrokes. No carotid bruits. Jugular venous pressure is flat at 90 degrees. There is no thyromegaly. CARDIOVASCULAR EXAMINATION: Reveals an irregular, irregular rhythm with distant heart sounds. No obvious murmurs. LUNGS: Clear without rales, rhonchi, or wheezes. ABDOMEN: Soft without bruits. EXTREMITIES: Reveal intact radial artery pulse on the right. Left upper extremity is edematous and erythematous from the mid humeral region distally. There is no pretibial edema. LABORATORY DATA: CBC notes hemoglobin 11.5, hematocrit 35.7, white count 7.7, platelet count 297,000. Electrolytes note a sodium of 140, potassium 4.2, chloride 109, bicarb 22, BUN 21, creatinine 0.78, glucose 98. TSH is 1.87. Magnesium is normal at 1.9. EKG notes atrial fibrillation with a rapid ventricular response. There are nonspecific ST and T-wave abnormality is seen. EKG at the time of admission noted sinus rhythm. environmental services supervisor confirms atrial fibrillation with a borderline ventricular response. IMPRESSION: Mrs. Donahue developed atrial fibrillation with rapid ventricular response following her I&D of an infected left olecranon bursa. Would increase her amiodarone at 200 mg t.i.d. Agree with use of oral diltiazem. She had difficult with oral beta blockers previously. As noted above, the patient does not take long-term anticoagulant therapy as she had a life-threatening GI bleed in November 2015. PLAN: 1. Increase amiodarone 200 mg t.i.d. 2. Agree with Diltiazem. 3. Can use p.r.n. intravenous metoprolol as needed for elevated heart rate. 4. Further recommendations depending on her clinical course.
[2017-07-30] MEDS: DILTIAZEM HCL 180 MG CAPCR PO SCH (13:45)
--- NOTE | 2017-07-30 15:51 | Family Medicine Progress Note ---
Progress Note Date of Service Jul 30, 2017. Subjective Pt evaluation today including: conversation w/ patient, physical exam, chart review, lab review Pain: reports mild L arm/elbow pain PO Intake: tolerating Voiding: no voiding problems This AM reports mild L arm/elbow pain, but improvement in swelling and erythema of arm. Denies any sob or cp Constitutional: No fever, No chills Respiratory: No shortness of breath Cardiovascular: No chest pain Abdomen: No pain, No nausea, No vomiting Musculoskeletal: + problem reported (L arm pain, swelling and erythema) Female : No dysuria Medications Current Inpatient Medications Medications (Trade) Dose Ordered Sig/Dariela Route Start Time Stop Time Status Last Admin Dose Admin Enoxaparin Sodium (Lovenox Inj) 40 mg HS SQ 07/27/17 21:00 08/26/17 20:59 07/29/17 20:43 40 MG Acetaminophen (Tylenol Tab) 650 mg Q4H PRN PO 07/27/17 17:45 08/26/17 17:44 07/28/17 21:27 650 MG Polyethylene (Miralax Powder Packet) 17 gm DAILY PRN PO 07/27/17 17:45 08/26/17 17:44 Ondansetron HCl (Zofran Inj) 4 mg Q6H PRN IV 07/27/17 17:45 08/26/17 17:44 Acetaminophen/ Codeine Phosphate (Tylenol w/ Codeine #3 Tab) 1 tab Q4H PRN PO 07/27/17 17:45 08/26/17 17:44 07/27/17 22:26 1 TAB Ascorbic Acid (Vitamin C Tab) 500 mg BID PO 07/27/17 20:01 08/26/17 20:59 07/30/17 07:42 500 MG Aspirin (Ecotrin Tab) 81 mg DAILY PO 07/28/17 08:00 08/27/17 08:59 07/30/17 07:42 81 MG Cholecalciferol (Vitamin D Tab) 1,000 inter.unit DAILY PO 07/28/17 08:00 08/27/17 08:59 07/30/17 07:41 1,000 INTER.UNIT Levothyroxine Sodium (Synthroid Tab) 75 mcg DAILYBB PO 07/28/17 06:30 08/27/17 06:59 07/30/17 05:51 75 MCG Mirtazapine (Remeron Tab) 15 mg HS PO 07/27/17 21:00 08/26/17 20:59 07/29/17 20:42 15 MG Vitamin B Complex/ Vit C/Folic Acid (Nephrocaps) 1 cap QAM PO 07/28/17 08:00 08/27/17 08:59 07/30/17 07:41 1 CAP Calcium/Vitamin D (Caltrate Plus Tab) 1 tab DAILY PO 07/28/17 08:00 08/27/17 07:59 07/30/17 07:42 1 TAB Magnesium Oxide (Mag-Ox Tab) 400 mg DAILY PO 07/28/17 08:00 08/27/17 07:59 07/30/17 07:43 400 MG Multivitamins/ Minerals (Multivitamin W/ Minerals Tab) 1 tab BID PO 07/28/17 08:00 08/27/17 07:59 07/30/17 07:41 1 TAB Ferrous Sulfate (Feosol Elix) 220 mg BID PO 07/27/17 22:00 08/26/17 21:59 07/30/17 07:43 220 MG Ceftriaxone Sodium 1 gm/ Dextrose 50 ml @ 100 mls/hr Q24H IV 07/27/17 22:00 08/06/17 21:59 07/29/17 22:05 100 MLS/HR Miscellaneous (Iv Fluids Completed) 1 ea PRN PRN N/A 07/27/17 22:00 07/27/18 21:59 Hydralazine HCl (HydrALAZINE INJ) 10 mg Q8 PRN IV. 07/28/17 01:15 08/27/17 01:14 Future Hold Amiodarone HCl (Cordarone Tab) 200 mg BID PO 07/30/17 21:00 08/27/17 08:59 Diltiazem HCl (Cardizem Cd Cap) 180 mg DAILY PO 07/30/17 14:00 08/29/17 13:59 07/30/17 13:45 180 MG Objective Vital Signs Date Time Temp Pulse Resp B/P (MAP) Pulse Ox O2 Delivery O2 Flow Rate FiO2 07/30/17 12:00 Room Air 07/30/17 11:25 37.0 99 16 130/87 (101) 96 Room Air 07/30/17 08:00 Room Air 07/30/17 07:45 153/93 (113) 07/30/17 07:27 36.7 110 18 159/102 (121) 96 Room Air 07/30/17 04:00 Room Air 07/30/17 04:00 36.7 112 20 110/87 (95) 94 Room Air 07/30/17 00:00 Room Air 07/29/17 23:22 96 141/83 07/29/17 23:07 36.8 96 18 141/83 (102) 93 Room Air 07/29/17 20:00 Room Air 07/29/17 18:22 36.5 117 18 146/106 (119) 95 Room Air 07/29/17 17:32 117 146/106 (119) 07/29/17 17:30 36.5 119 18 95 07/29/17 16:05 91 Room Air Physical Exam General Appearance: no apparent distress Eyes: normal inspection, sclerae normal Neck: no JVD Respiratory/Chest: lungs clear, normal breath sounds Cardiovascular: + tachycardia, + irregularly irregular Abdomen: normal bowel sounds, non tender, soft Extremities: non-tender, no pedal edema, + pertinent finding (L elbow dressing intact and clean; L forearm decreased erythema/edema/TTP) Neurologic/Psychiatric: alert, oriented x 3 Skin: warm/dry Laboratory Results 07/30/17 07:08 Red Blood Count 3.90, Mean Corpuscular Volume 91.5, Mean Corpuscular Hemoglobin 29.5, Mean Corpuscular Hemoglobin Concent 32.2, Mean Platelet Volume 11.4, Neutrophils (%) (Auto) 64.9, Lymphocytes (%) (Auto) 18.5, Monocytes (%) (Auto) 11.2, Eosinophils (%) (Auto) 4.6, Basophils (%) (Auto) 0.5, Neutrophils # (Auto ) 5.04, Lymphocytes # (Auto) 1.44, Monocytes # (Auto) 0.87, Eosinophils # (Auto ) 0.36, Basophils # (Auto) 0.04 07/30/17 07:08 Test 07/29/17 22:53 07/30/17 07:08 Magnesium Level 1.9 mg/dl (1.8-2.4) Troponin I < 0.015 ng/ml (0-0.045) Thyroid Stimulating Hormone (TSH) 1.870 uIu/ml (0.300-4.500) Free Thyroxine 1.78 ng/dl (0.80-1.60) Free Triiodothyronine 2.32 pg/ml (2.30-4.20) White Blood Count 7.77 K/uL (4.8-10.8) Red Blood Count 3.90 M/uL (4.2-5.4) Hemoglobin 11.5 g/dL (12.0-16.0) Hematocrit 35.7 % (37-47) Mean Corpuscular Volume 91.5 fL (80-100) Mean Corpuscular Hemoglobin 29.5 pg (25-34) Mean Corpuscular Hemoglobin Concent 32.2 g/dl (32-36) Platelet Count 297 K/uL (130-400) Mean Platelet Volume 11.4 fL (7.4-10.4) Neutrophils (%) (Auto) 64.9 % Lymphocytes (%) (Auto) 18.5 % Monocytes (%) (Auto) 11.2 % Eosinophils (%) (Auto) 4.6 % Basophils (%) (Auto) 0.5 % Neutrophils # (Auto) 5.04 K/uL (1.4-6.5) Lymphocytes # (Auto) 1.44 K/uL (1.2-3.4) Monocytes # (Auto) 0.87 K/uL (0.11-0.59) Eosinophils # (Auto) 0.36 K/uL (0-0.5) Basophils # (Auto) 0.04 K/uL (0-0.2) RDW Standard Deviation 45.9 fL (36.4-46.3) RDW Coefficient of Variation 13.8 % (11.5-14.5) Immature Granulocyte % (Auto) 0.3 % Immature Granulocyte # (Auto) 0.02 K/uL (0.00-0.02) Anion Gap 11.0 mmol/L (3-11) Est Creatinine Clear Calc Drug Dose 40.8 ml/min Estimated GFR () 78.1 Estimated GFR (Non- 67.4 BUN/Creatinine Ratio 27.2 (10-20) Calcium Level 9.2 mg/dl (8.5-10.1) Chemistry Specimen Hemolysis Assessment and Plan 89 yoF with PMHx of HTN, HLD, paroxysmal Afib not on anticoagulation due to GI bleed in November 2015, AAA measuring 4.5 cm, anemia, hx rectal carcinoma with resection and XRT in 1991, diverticulosis, hypothyroidism, gait disturbance presenting with left olecranon bursitis with surrounding cellulitis encompassing > 50% of left upper extremity s/p falling on L arm 1 month ago. S/p I & D day 1 of olecranon bursa with now improving afib with rapid ventricular response Left Arm Cellulitis/ Left olecranon bursitis - WBC 10.8 -> 7.77 - US doppler negative for VTE, nonvascular scan showing small seroma vs hematoma in the left wrist. - Continue Rocephin day 3 - Dced Vanco given neg MRSA swab - consulted Ortho - I&D olecranon bursa 07/29 - drained 10ml purulent fluid - dressing change every day - CRP daily to monitor response to treatment - Pain control with Tylenol #3; pt uses this as outpatient a few times per week for chronic pain in low back - elevate arm above heart - ESR 40 Paroxysmal Afib/Hx of AAA (4.5 cm January 2016)/HTN/HLD Afib with rapid ventricular response - onset after I&D on 07/29 - converted this AM to NSR 90s - On telemetry - Started on Diltiazem 180mg daily - Sees Dr. Mortensen and metoprolol causes bradycardia/symptoms - Consulted cardiology - Per Dr. Mortensen: metoprolol PRN - Increase amiodarone 200mg to TID - Continue asa 81 mg, not on statin therapy - Last echo was January 2016 with preserved EF of 60% Hypokalemia - resolved - K - 4.2 - K-citrate received 20meq 07/30 Hx rectal carcinoma Diverticulitis - Stable Anemia - Stable, hgb 11.5, follow cbc, continue iron supplementation - Hgb range 8-11 on previous admissions Hypothyroidism - Cont levothyroxine 75 mcg daily Hx of Falls/gait disturbance - PT/OT evaluation - uses cane for ambulation - PT: home PT to work on gait/balance/functional mobility; use roller walker for home and outside - OT: Lives with . Family proves support. Home health recommended DVT ppx: lovenox 40mg subQ CODE STATUS: FULL Resident Involvement: Resident Care Provided Care Provided: Adult Hospital Medicine Reviewed: Pt Seen/Exam by Me History Resident Physician Supervision Note: I interviewed and examined the patient. Discussed with Dr. Pina and agree with findings and plan as documented in the note. Any exceptions or clarifications are listed here: Patient feeling well today. She converted out of A. fib earlier this morning to sinus rhythm, but later in the afternoon was flipping back and forth between sinus and atrial fibrillation with controlled rates. She denies chest pain or shortness of breath. Orthopedics undressed her elbow today and is expressed more purulence, but states that it appears improved. She is afebrile Vitals reviewed NAD, AAO RRR, 2/6 JESSICA at [facility] CTAB no wcr Abd +BS soft NT ND Ext: Left elbow with dressing in place to the mid forearm, but erythema and edema are improving and the distal forearm and hand 89 yo female with left septic olecranon bursitis with surrounding cellulitis encompassing > 50% of left upper extremity. Improving, fluctuance was forming in over the olecranon bursa-now status post I&D with 10 ML's of purulent drainage which has been sent for culture-I discussed with the lab-it appears the culture could be found under a different encounter visit from this hospitalization, however they do have it cultured in the lab-growing out Staphylococcus aureus-sensitivity pending -Continue Rocephin, DCd Vanco after MRSA swab negative, but if this ends up being MRSA, will add back on-however she is clinically improving -consult Ortho appreciated -Continue to elevate limb above heart -Follow sedimentation rate, CRP, along with CBC-ESR is now trending downward Now with rapid atrial fibrillation-converted back to sinus-not on anticoagulation for history of recurrent GI bleeds. Stable at this time. -Switch diltiazem to 180 mg of long-acting -continue telemetry for continuous cardiac monitoring -consult cardiology appreciated-discussed with Dr. Mortensen on the phone-since she converted, will make amiodarone 200 mg by mouth twice a day until leaves the hospital, then amiodarone 200 mg once daily until seen in the office with cardiology -Will not anticoagulate based on history of recurrent GI bleeding on anticoagulation -If remains in sinus rhythm and/or is rate controlled, could potentially discharged home tomorrow if cultures are back Documented By: Jeannie Cruz
[2017-07-30] MEDS ORDERED: VANCOMYCIN TROUGH ONE (17:30)
[2017-07-30] MEDS: ENOXAPARIN 40 MG/0.4 ML SYR SQ SCH (20:35)
[2017-07-30] MEDS: MIRTAZAPINE TAB 15 MG TAB PO SCH (20:35)
[2017-07-30] MEDS ORDERED: AMIODARONE 200 MG TAB PO SCH ×2 (21:00)
[2017-07-30] MEDS: CEFTRIAXONE SOD INJ 1 GM in DEXTROSE 5% ADD-VANTAGE 50ML 50 ML IV SCH (21:19)
[2017-07-30] MEDS ORDERED: HALOPERIDOL LACTATE 5 MG/ML 1 ML VIAL ONE (23:30)
[2017-07-30] MEDS ORDERED: HALOPERIDOL LACTATE 5 MG/ML 1 ML VIAL IM ONE (23:30)
[2017-07-31] VITALS (7 sets, daily range): BP systolic 103–161; BP diastolic 54–80; PULSE 57–112; TEMP 36.3–37; O2SAT 93–95
[2017-07-31] MEDS: LEVOTHYROXINE 75 MCG TAB PO SCH (05:32)
[2017-07-31 06:41] LABS: HEMATOCRIT 31.7 % (37-47); HEMOGLOBIN 10.3 g/dL (12.0-16.0); MEAN CELL VOLUME 91.4 fL (80-100); MEAN CORPUSCULAR HEMOGLOBIN 29.7 pg (25-34); MEAN CORPUSCULAR HGB CONC 32.5 g/dl (32-36); MEAN PLATELET VOLUME 10.4 fL (7.4-10.4); PLATELET COUNT 266 K/uL (130-400); WHITE BLOOD COUNT 7.29 K/uL (4.8-10.8)
[2017-07-31 07:17] LABS: CREATININE 0.78 mg/dl (0.60-1.20)
[2017-07-31] MEDS: CEROVITE ADV FORMULA TAB PO SCH ×2 (08:12→20:24)
[2017-07-31] MEDS: ASPIRIN 81 MG ECTAB PO SCH (08:12)
[2017-07-31] MEDS: NEPHROCAPS PO SCH (08:12)
[2017-07-31] MEDS: DILTIAZEM HCL 180 MG CAPCR PO SCH (08:13)
[2017-07-31] MEDS: FERROUS SULFATE ELIX 220MG/5ML PO SCH ×2 (08:13→20:27)
[2017-07-31] MEDS: MAGNESIUM OXIDE 400 MG TAB PO SCH (08:13)
[2017-07-31] MEDS: CALCIUM 600MG + VIT D 400 IU TAB PO SCH (08:13)
[2017-07-31] MEDS: ASCORBIC ACID 500 MG TAB PO SCH ×2 (08:14→20:25)
[2017-07-31] MEDS: CHOLECALCIFEROL 1000 INTER.UNIT TAB PO SCH (08:14)
[2017-07-31] MEDS: AMIODARONE 200 MG TAB PO SCH ×2 (08:14→20:24)
[2017-07-31] MEDS ORDERED: DILTIAZEM SR 60 MG CAP PO STA (12:43)
[2017-07-31] MEDS ORDERED: LORAZEPAM 2 MG/ML 1 ML VIAL IV PRN (15:45)
--- NOTE | 2017-07-31 17:54 | Family Medicine Progress Note ---
Progress Note Date of Service Jul 31, 2017. Subjective Pt evaluation today including: conversation w/ patient, physical exam, chart review, lab review Pain: reports L arm pain improvement PO Intake: tolerating Voiding: no voiding problems ON: pt agitated/combative. Pulled IV out and refused to get it replaced. Received IM halidol 1mg and calmed down after showed up Tele: Afib ON in 80-140s; converted around 8:30am to Sinus in the 60s Reports improvement in L arm pain and swelling. Denies sob, cp, n/v. Constitutional: No fever, No chills Respiratory: No shortness of breath Cardiovascular: No chest pain Abdomen: No pain, No nausea, No vomiting Musculoskeletal: + problem reported (L arm pain improved) Female : No dysuria Medications Current Inpatient Medications Medications (Trade) Dose Ordered Sig/Dariela Route Start Time Stop Time Status Last Admin Dose Admin Enoxaparin Sodium (Lovenox Inj) 40 mg HS SQ 07/27/17 21:00 08/26/17 20:59 07/30/17 20:35 40 MG Acetaminophen (Tylenol Tab) 650 mg Q4H PRN PO 07/27/17 17:45 08/26/17 17:44 07/28/17 21:27 650 MG Polyethylene (Miralax Powder Packet) 17 gm DAILY PRN PO 07/27/17 17:45 08/26/17 17:44 Ondansetron HCl (Zofran Inj) 4 mg Q6H PRN IV 07/27/17 17:45 08/26/17 17:44 Acetaminophen/ Codeine Phosphate (Tylenol w/ Codeine #3 Tab) 1 tab Q4H PRN PO 07/27/17 17:45 08/26/17 17:44 07/27/17 22:26 1 TAB Ascorbic Acid (Vitamin C Tab) 500 mg BID PO 07/27/17 20:01 08/26/17 20:59 07/31/17 08:14 500 MG Aspirin (Ecotrin Tab) 81 mg DAILY PO 07/28/17 08:00 08/27/17 08:59 07/31/17 08:12 81 MG Cholecalciferol (Vitamin D Tab) 1,000 inter.unit DAILY PO 07/28/17 08:00 08/27/17 08:59 07/31/17 08:14 1,000 INTER.UNIT Levothyroxine Sodium (Synthroid Tab) 75 mcg DAILYBB PO 07/28/17 06:30 08/27/17 06:59 07/31/17 05:32 75 MCG Mirtazapine (Remeron Tab) 15 mg HS PO 07/27/17 21:00 08/26/17 20:59 07/30/17 20:35 15 MG Vitamin B Complex/ Vit C/Folic Acid (Nephrocaps) 1 cap QAM PO 07/28/17 08:00 08/27/17 08:59 07/31/17 08:12 1 CAP Calcium/Vitamin D (Caltrate Plus Tab) 1 tab DAILY PO 07/28/17 08:00 08/27/17 07:59 07/31/17 08:13 1 TAB Magnesium Oxide (Mag-Ox Tab) 400 mg DAILY PO 07/28/17 08:00 08/27/17 07:59 07/31/17 08:13 400 MG Multivitamins/ Minerals (Multivitamin W/ Minerals Tab) 1 tab BID PO 07/28/17 08:00 08/27/17 07:59 07/31/17 08:12 1 TAB Ferrous Sulfate (Feosol Elix) 220 mg BID PO 07/27/17 22:00 08/26/17 21:59 07/31/17 08:13 220 MG Ceftriaxone Sodium 1 gm/ Dextrose 50 ml @ 100 mls/hr Q24H IV 07/27/17 22:00 08/06/17 21:59 07/30/17 21:19 100 MLS/HR Miscellaneous (Iv Fluids Completed) 1 ea PRN PRN N/A 07/27/17 22:00 07/27/18 21:59 Hydralazine HCl (HydrALAZINE INJ) 10 mg Q8 PRN IV. 07/28/17 01:15 08/27/17 01:14 Future Hold Amiodarone HCl (Cordarone Tab) 200 mg BID PO 07/30/17 21:00 08/27/17 08:59 07/31/17 08:14 200 MG Lorazepam (Ativan Inj) 0.5 mg Q6H PRN IV 07/31/17 15:45 08/30/17 15:44 Objective Vital Signs Date Time Temp Pulse Resp B/P (MAP) Pulse Ox O2 Delivery O2 Flow Rate FiO2 1/20/18 16:00 Room Air 07/31/17 15:47 36.7 57 20 116/73 (87) 95 Room Air 07/31/17 12:46 36.3 57 16 103/54 (70) 93 07/31/17 12:00 Room Air 07/31/17 08:22 36.7 96 16 117/69 (85) 94 07/31/17 08:00 Room Air 07/31/17 04:00 Room Air 07/31/17 03:24 36.9 112 18 161/76 (104) 95 Room Air 07/31/17 01:01 36.6 108 20 148/80 (102) 93 Room Air 07/30/17 23:59 36.9 120 20 156/87 (110) 93 Room Air 07/30/17 23:59 Room Air 07/30/17 20:00 Room Air 07/30/17 19:30 36.6 91 18 125/79 (94) 91 Room Air Physical Exam General Appearance: no apparent distress Eyes: normal inspection, sclerae normal Respiratory/Chest: lungs clear, normal breath sounds Cardiovascular: regular rate, rhythm, no murmur Abdomen: normal bowel sounds, non tender, soft Extremities: + pertinent finding (L hand trace edema, improved erythema; L arm wrapped and unable to visualize) Neurologic/Psychiatric: alert, oriented x 3 Skin: warm/dry Laboratory Results 07/31/17 06:01 07/31/17 06:01 Test 07/31/17 01:25 07/31/17 06:01 Urine Color YELLOW Urine Appearance CLEAR (CLEAR) Urine pH 5.5 (4.5-7.5) Urine Specific [place] 1.012 (1.000-1.030) Urine Protein TRACE (NEG) Urine Glucose (UA) NEG (NEG) Urine Ketones NEG (NEG) Urine Occult Blood NEG (NEG) Urine Nitrite NEG (NEG) Urine Bilirubin NEG (NEG) Urine Urobilinogen NEG (NEG) Urine Leukocyte Esterase TRACE (NEG) Urine WBC (Auto) 1-5 /hpf (0-5) Urine RBC (Auto) 0-4 /hpf (0-4) Urine Hyaline Casts (Auto) 1-5 /lpf (0-5) Urine Epithelial Cells (Auto) 10-20 /lpf (0-5) Urine Bacteria (Auto) NEG (NEG) Red Blood Count 3.47 M/uL (4.2-5.4) Mean Corpuscular Volume 91.4 fL (80-100) Mean Corpuscular Hemoglobin 29.7 pg (25-34) Mean Corpuscular Hemoglobin Concent 32.5 g/dl (32-36) RDW Standard Deviation 46.0 fL (36.4-46.3) RDW Coefficient of Variation 14.0 % (11.5-14.5) Mean Platelet Volume 10.4 fL (7.4-10.4) Anion Gap 10.0 mmol/L (3-11) Est Creatinine Clear Calc Drug Dose 40.8 ml/min Estimated GFR () 78.1 Estimated GFR (Non- 67.4 BUN/Creatinine Ratio 34.4 (10-20) Calcium Level 9.0 mg/dl (8.5-10.1) Magnesium Level 2.1 mg/dl (1.8-2.4) C-Reactive Protein 3.08 mg/dl (0-0.29) Assessment and Plan 89 yoF with PMHx of HTN, HLD, paroxysmal Afib not on anticoagulation due to GI bleed in November 2015, AAA measuring 4.5 cm, anemia, hx rectal carcinoma with resection and XRT in 1991, diverticulosis, hypothyroidism, gait disturbance presenting with left olecranon bursitis with surrounding cellulitis encompassing > 50% of left upper extremity s/p falling on L arm 1 month ago. S/p I & D day 2 of olecranon bursa with now improved afib with rapid ventricular response but Sinus bradycardic. Left Arm Cellulitis/ Left olecranon bursitis - WBC 10.8 -> 7.29 - US doppler negative for VTE, nonvascular scan showing small seroma vs hematoma in the left wrist. - Continue Rocephin day 4 - Dced Vanco given neg MRSA swab - consulted Ortho - I&D olecranon bursa 07/29 - drained 10ml purulent fluid - WCx Staph Aureus pansensitive - DC with Keflex 500mg TID x 7 days with close ortho/PCP follow up - dressing change every day - ESR/CRP daily to monitor response to treatment - Pain control with Tylenol #3; pt uses this as outpatient a few times per week for chronic pain in low back - elevate arm above heart - Last CRP 3.08 and ESR 40 Paroxysmal Afib/Hx of AAA (4.5 cm January 2016)/HTN/HLD Afib with rapid ventricular response - onset after I&D on 07/29 - converted this AM to NSR 50-60s - On telemetry - Last echo was January 2016 with preserved EF of 60% - Sees Dr. Mortensen and metoprolol causes bradycardia/symptoms - Consulted cardiology - Per Dr. Mortensen: metoprolol PRN - Amiodarone 200mg BID - Stopped Diltiazem 180mg daily - Continue asa 81 mg, not on statin therapy Hypokalemia - resolved - K - 4 - K-citrate received 20meq 07/30 Hx rectal carcinoma Diverticulitis - Stable Anemia - Stable, hgb 10.3, follow cbc, continue iron supplementation - Hgb range 8-11 on previous admissions Hypothyroidism - Cont levothyroxine 75 mcg daily Hx of Falls/gait disturbance - PT/OT evaluation - uses cane for ambulation - PT: home PT to work on gait/balance/functional mobility; use roller walker for home and outside - OT: Lives with . Family proves support. Home health recommended DVT ppx: lovenox 40mg subQ CODE STATUS: FULL Dispo: home with home health Resident Involvement: Resident Care Provided Care Provided: Adult Hospital Medicine Reviewed: Pt Seen/Exam by Me History Resident Physician Supervision Note: I interviewed and examined the patient. Discussed with Dr. Pina and agree with findings and plan as documented in the note. Any exceptions or clarifications are listed here: Patient was back in rapid atrial fibrillation overnight with rates as high as the 130s to 140s, but then converted back to normal sinus rhythm in the 60s this morning. She denies any symptoms at all. She did have an episode of sundowning last night which was finally resolved when her came in from home. She became bradycardic into the 50s later in the afternoon. I discussed the case with cardiology on the phone who recommended discontinuing the diltiazem at this time. She remains afebrile. Vitals reviewed NAD, AAO Regular rhythm, bradycardia, 2/6 JESSICA at [facility] CTAB no wcr Abd +BS soft NT ND Ext: Left elbow with dressing in place to the mid forearm, but erythema and edema are significantly improved in the distal forearm and hand 89 yo female with left septic olecranon bursitis with surrounding cellulitis encompassing > 50% of left upper extremity. Improving, fluctuance was forming in over the olecranon bursa-now status post I&D with 10 ML's of purulent drainage-culture growing MSSA-clinically improving, afebrile, no leukocytosis -Continue Rocephin, DCd Vanco after MRSA swab negative-we will switch to by mouth Keflex tomorrow -consult Ortho appreciated -Continue to elevate limb above heart -Follow sedimentation rate, CRP, along with CBC-ESR is now trending downward Now with rapid atrial fibrillation-converted back to sinus and with bradycardia in the 50s-not on anticoagulation for history of recurrent GI bleeds. -Discontinue diltiazem -Continue amiodarone 200 mg twice a day -continue telemetry for continuous cardiac monitoring -consult cardiology appreciated-we'll continue to monitor to see if on that needing a pacemaker -Will not anticoagulate based on history of recurrent GI bleeding on anticoagulation Suspected mild cognitive impairment-with delirium/sundowning last night. Could be related to infection and/or medication effect -Supportive care -Caution with Haldol combined with amiodarone-at risk for prolonged QT -Low dose and the diazepam when necessary for agitation Documented By: Jeannie Cruz
[2017-07-31] MEDS: MIRTAZAPINE TAB 15 MG TAB PO SCH (20:25)
[2017-07-31] MEDS: ENOXAPARIN 40 MG/0.4 ML SYR SQ SCH (20:25)
[2017-07-31] MEDS: CEFTRIAXONE SOD INJ 1 GM in DEXTROSE 5% ADD-VANTAGE 50ML 50 ML IV SCH (20:32)
[2017-08-01 03:40] VITALS: BP 145/88; PULSE 69; TEMP 36.7; O2SAT 90
[2017-08-01] MEDS: LEVOTHYROXINE 75 MCG TAB PO SCH (06:05)
[2017-08-01 07:21] LABS: HEMATOCRIT 32.3 % (37-47); HEMOGLOBIN 10.3 g/dL (12.0-16.0); MEAN CELL VOLUME 92.6 fL (80-100); MEAN CORPUSCULAR HEMOGLOBIN 29.5 pg (25-34); MEAN CORPUSCULAR HGB CONC 31.9 g/dl (32-36); PLATELET COUNT 289 K/uL (130-400); RED CELL DISTRIBUTION WIDTH CV 14.1 % (11.5-14.5); RED CELL DISTRIBUTION WIDTH SD 46.9 fL (36.4-46.3); WHITE BLOOD COUNT 6.67 K/uL (4.8-10.8)
[2017-08-01 07:57] LABS: CALCIUM 8.8 mg/dl (8.5-10.1); CREATININE 0.88 mg/dl (0.60-1.20); POTASSIUM 3.9 mmol/L (3.5-5.1)
[2017-08-01] MEDS: NEPHROCAPS PO SCH (08:17)
[2017-08-01] MEDS: ASPIRIN 81 MG ECTAB PO SCH (08:17)
[2017-08-01] MEDS: CEROVITE ADV FORMULA TAB PO SCH (08:17)
[2017-08-01] MEDS: FERROUS SULFATE ELIX 220MG/5ML PO SCH (08:17)
[2017-08-01] MEDS: CALCIUM 600MG + VIT D 400 IU TAB PO SCH (08:17)
[2017-08-01] MEDS: AMIODARONE 200 MG TAB PO SCH (08:17)
[2017-08-01] MEDS: CHOLECALCIFEROL 1000 INTER.UNIT TAB PO SCH (08:17)
[2017-08-01] MEDS: ASCORBIC ACID 500 MG TAB PO SCH (08:18)
[2017-08-01] MEDS: MAGNESIUM OXIDE 400 MG TAB PO SCH (08:18)
[2017-08-01 08:32] VITALS: BP 168/74; PULSE 71; TEMP 36.5; O2SAT 90
[2017-08-01] MEDS ORDERED: POTASSIUM CHLORIDE 20 MEQ/15 ML UDC PO STA ×2 (08:40→11:11)
[2017-08-01] MEDS ORDERED: DILTIAZEM HCL 180 MG CAPCR PO SCH (09:00)
[2017-08-01] MEDS ORDERED: DILTIAZEM HCL 240 MG CAPCR PO SCH (09:00)
[2017-08-01] MEDS ORDERED: CRD200 PO ×3 (10:56→11:43)
[2017-08-01] MEDS ORDERED: CEPH500C2 PO (10:56)
--- NOTE | 2017-08-01 11:11 | Discharge Instructions ---
Discharge Instructions Date of Service Aug 01, 2017. Admission Reason for Admission: Left Arm Cellulitis Discharge Discharge Diagnosis / Problem: L elbow buristis; L arm/hand cellulitis Discharge Goals Goal(s): Decrease discomfort, Diagnostic testing, Therapeutic intervention Activity Recommendations Activity Limitations: resume your previous activity . Instructions / Follow-Up Instructions / Follow-Up Ms. Rowan salazar were admitted because you had fallen on your left arm and was having swelling and increasing redness of your L arm/elbow/hand. Dr. Murray , our orthopedist saw you and drained pus from your elbow bursa (cushion) which was inflamed. Your arm/elbow/hand looked much better today and we are discharging you with antibiotics to take at home. You also had atrial fibrillation (irregular rhythm of heart) on two nights for which your enrollment manager Dr. Mortensen saw you in the hospital. We adjusted your medications. The night/day before your discharge you did not have any episodes of atrial fibrillation. Please following the following instructions closely: -Please keep your L arm clean and change dressing every day -Please take Keflex 500mg three times a day for 7 days -Follow up with Dr. Murray within a week -Please take Amiodarone 200mg once a day -Please follow up with Dr. Mortensen and your primary care doctor within 1-2 weeks Current Hospital Diet Patient's current hospital diet: AHA Diet (Heart Healthy) Discharge Diet Recommended Diet: AHA Diet (Heart Healthy) Procedures Procedures Performed: L elbow bursa drainage Pending Studies Studies pending at discharge: yes List of pending studies: Final Blood Culture results Medical Emergencies . Who to Call and When: Medical Emergencies: If at any time you feel your situation is an emergency, please call 911 immediately. . Non-Emergent Contact Non-Emergency issues call your: Primary Care Provider . . "Provider Documentation" section prepared by Tera Pina. . VTE Core Measure Inpt VTE Proph given/why not?: Enoxaparin (Lovenox)ANKUSH, TEvangelistEJose. Stockings, SCD's
[2017-08-01 12:12] VITALS: BP 139/58; PULSE 56; TEMP 36.5; O2SAT 95
[2017-08-01 12:53] VITALS: BP 139/58; PULSE 56; TEMP 36.5; O2SAT 95
--- NOTE | 2017-08-01 16:31 | Discharge Summary ---
Discharge Summary Date of Service Aug 01, 2017. 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 HTN HLD Hx of rectal carcinoma H/o recurrent GI bleding on anticoagulation Hypokalemia Histor of of Falls/gait disturbance Mild cognitive impairment Delirium Immunizations: Have You Had Influenza Vaccine: No History of Tetanus Vaccine?: No History of Pneumococcal: Yes Pneumococcal Date: Mar 04, 2011 History of Hepatitis B Vaccine: No Procedures: L olecranon bursa I&D Consultations: Orthopedics Medication Reconciliation New Medications: Cephalexin Monohydrate (Keflex) 500 Mg Cap 500 MG PO TID for 7 Days, #21 CAP Changed Medications: Amiodarone HCl (Amiodarone HCl) 200 Mg Tab 200 MG PO DAILY, #30 TAB (Changed from: [facility]) Continued Medications: Acetaminophen/Codeine (Tylenol W/Codeine #3) 300 Mg/30 Mg Tab 1 TAB PO Q4-6 HRS PRN for Pain, TAB Ascorbic Acid (Ascorbic Acid) 500 Mg Tab 500 MG PO BID, TAB Aspirin (Aspirin Ec) 81 Mg Tab 81 MG PO DAILY Calcium Carbonate-Vitamin D (Calcium 500 + D) 1 Tab Tab 1 TAB PO DAILY Cholecalciferol (Vitamin D3) 1,000 Unit Tab 1000 UNIT PO DAILY Diclofenac Sodium (Topical) (Diclofenac Sodium) 1 % Gel 4 GM TOP QID Levothyroxine Sodium (Levothyroxine Sodium) 75 Mcg Tab 75 MCG PO DAILY Magnesium Oxide (Magnesium) 250 Mg Tab 250 MG PO DAILY Mirtazapine (Remeron) 15 Mg Tab 15 MG PO HS for Sleep Multiple Vitamin (Multivitamin) 1 Tab Tab 1 TAB PO DAILY, TAB Multiple Vitamins W/ Minerals (Preservision Areds) 1 Cap Cap 1 CAP PO BID Vitamin B Cmplx/Vitc/Folic Ac (Nephrocaps) Cap 1 CAP PO QAM [Iron 75MG/Ml] () 5 ML PO AMPM Discharge Exam Review of Systems: Constitutional: No fever, No chills Respiratory: No shortness of breath Cardiovascular: No chest pain Abdomen: No pain, No nausea, No vomiting, No constipation Musculoskeletal: + problem reported (improved L arm/elbow pain, erythema and edema) Genitourinary - Male: No dysuria Physical Exam: General Appearance: no apparent distress Eyes: normal inspection, sclerae normal Respiratory/Chest: lungs clear, normal breath sounds Cardiovascular: regular rate, rhythm, no murmur Abdomen / GI: normal bowel sounds, non tender, soft Extremities: no calf tenderness, no pedal edema, + pertinent finding (L olecranon bursa improving edema/erythema and fluctuance) Skin: warm/dry Hospital Course 89 yoF with PMHx of HTN, HLD, paroxysmal Afib not on anticoagulation due to GI bleed in November 2015, 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 Discharged s/p I & D day 3 of olecranon bursa with improved afib. Left Arm Cellulitis/ Left olecranon bursitis - WBC 10.8 -> 6.67 - US doppler negative for VTE, nonvascular scan showing small seroma vs hematoma in the left wrist. - Received Rocephin for 4 days - consulted Ortho - I&D olecranon bursa 07/29 - drained 10ml purulent fluid - WCx Staph Aureus pansensitive - DC with Keflex 500mg TID x 7 days with close ortho/PCP follow up - dressing change every day (home health arranged for dressing) - CRP 3.08 and ESR 38 - downtrended - Pain control with Tylenol #3; pt uses this as outpatient a few times per week for chronic pain in low back Paroxysmal Afib/Hx of TAA (4.5 cm January 2016)/HTN/HLD Afib with rapid ventricular response - onset after I&D on 07/29 - converted to NSR 50-60s 07/31 - Last echo was January 2016 with preserved EF of 60% - Sees Dr. Mortensen and metoprolol causes bradycardia/symptoms - Consulted cardiology - Per Dr. Mortensen: metoprolol PRN - Amiodarone 200mg BID -> Dced with Amiodarone 200mg daily - Stopped Diltiazem 180mg daily - Continue asa 81 mg, not on statin therapy Hypokalemia - resolved - K - 3.9 Hx rectal carcinoma Diverticulitis - Stable Anemia - Stable, hgb 10.3, follow cbc, continue iron supplementation - Hgb range 8-11 on previous admissions Hypothyroidism - Continued levothyroxine 75 mcg daily Hx of Falls/gait disturbance - PT/OT evaluation - uses cane for ambulation - PT: home PT to work on gait/balance/functional mobility; use roller walker for home and outside - OT: Lives with . Family proves support. Home health recommended DVT ppx: lovenox 40mg subQ CODE STATUS: FULL Dispo: home with home health Total Time Spent: Greater than 30 minutes This includes examination of the patient, discharge planning, medication reconciliation, and communication with other providers. Discharge Instructions Please refer to the electronic Patient Visit Report (Discharge Instructions) for additional information. Follow-Up PCP within 1-2 weeks Ortho within 1 week Cardiology within 1-2 weeks Additional Copies To Eddie Mortensen M.D.; Rudy Murray MD; Alexander Jaimes M.D. Reviewed: Pt Seen/Exam by Me History Resident Physician Supervision Note: I interviewed and examined the patient. Discussed with Dr. Pina and agree with findings and plan as documented in the note. Any exceptions or clarifications are listed here: Remains in NSR and bradycardia largely resolved. Feels well, no CP or SOB, not lightheaded. Elbow feels much better, marina reg diet, anxious for discharge. Discussed case with Cardiology today. Vitals reviewed, tele reviewed with NSR in the 60s NAD, AAO Regular rhythm, normal rate, 2/6 JESSICA at [facility] CTAB no wcr Abd +BS soft NT ND Ext: Left elbow with mild erythema just at olecranon but otherwise significantly improved erythema and edema from previous, opening over olecranon bursa remains open with scant purulent drainage, still a small area of fluctuance just distal to the elbow with mild overlying erythema 89 yo female with left septic olecranon bursitis with surrounding cellulitis encompassing > 50% of left upper extremity. Significantly improved, but not yet resolved, continues to drain- culture growing MSSA-clinically improving, afebrile, no leukocytosis, ESR and Crp trending downward -received Rocephin, DCd Vanco after MRSA swab negative-switch to by mouth Keflex for at least 7 more days with dressing changes daily to every other day by Home RN and patient, close f/u with PCP and Ortho as outpt -consult Ortho appreciated -Continue to elevate limb above heart at home Rapid atrial fibrillation-converted back to sinus and with bradycardia in the 50s while on po diltiazem-not on anticoagulation for history of recurrent GI bleeds. -Discontinued po diltiazem -Was loaded somewhat with amiodarone 200 mg twice a day while here, then change to 200mg once daily on dc and close f/u with Cardio -consult cardiology appreciated -Will not anticoagulate at this time based on history of recurrent GI bleeding on anticoagulation Suspected mild cognitive impairment-with delirium/sundowning now resolved. Could be related to infection and/or medication effect -Supportive care Stable for dc to home Documented By: Jeannie Cruz
== END 2017-08-01 13:26 | disposition home health service (06) | DRG 558 ==
LOC: C.EDB 14:14 → C.MS4W 18:01 → ENRESERV 18:58 → CANRESERV 07-29 17:14 → ENRESERV 07-29 17:18 → C.2T 07-29 18:19
PROVIDERS: ADMIT Family Medicine; ATTEND Family Medicine
PROC: 0J9F3ZZ Drainage of Left Upper Arm Subcutaneous Tissue and Fascia, Percutaneous Approach (ICD-10-PCS; principal; 2017-07-29)
DX: M70.22 Olecranon bursitis, left elbow (principal); F05 Delirium due to known physiological condition; L03.114 Cellulitis of left upper limb; B95.61 Methicillin susceptible Staphylococcus aureus infection as the cause of diseases classified elsewhere; E03.9 Hypothyroidism, unspecified; I48.0 Paroxysmal atrial fibrillation; E78.5 Hyperlipidemia, unspecified; D64.9 Anemia, unspecified; I71.2 Thoracic aortic aneurysm, without rupture; Z79.82 Long term (current) use of aspirin; Z79.899 Other long term (current) drug therapy; Z91.81 History of falling

== ENCOUNTER → 2017-07-28 | Outpatient (CLI) | payer BC ==
[~2017-07-28] MED LIST changes: +ACET-749 PO; +ASPI81TA28 PO; +CALCTAB65 PO; +DICL1GEL34 TOP; +IRON PO; -LORA-741 PO
--- NOTE | 2017-07-29 12:57 | Orthopedic Progress Note ---
Orthopedic Progress Note Date of Service Jul 29, 2017. Subjective Post OP Day: Inpatient on IV ABX for Left arm cellulitis Reports: feeling well, pain controlled w PO medications, Denies: complaints, chest pain, SOB, nausea / vomiting, light headedness, calf pain, using [employer] Objective N/V intact, A&O x3, CMS intact Mild edema and erythema over olecranon of Left elbow. Tender to palpation. Fluctuant. No open areas or active drainage. Assessment & Plan Assessment: Left arm cellulitis / olecranon bursitis Plan: I&D of Lt elbow performed by Dr. Murray at bedside this afternoon (see his procedure note for specifics) Will cont on IV ABX Drainage from elbow was sent for aerobic / anaerobic gram stain. We will See patient in AM to check her incision site.
== END | disposition home or self-care (01) ==
LOC: C.RDSM 11:25
PROVIDERS: ATTEND Orthopaedic Surgery
DX: M25.521 Pain in right elbow (principal)

== ENCOUNTER → 2017-09-10 | Outpatient (CLI) | payer BC | END | disposition home or self-care (01) | LOC: C.RDSM 14:49 | PROVIDERS: ATTEND Orthopaedic Surgery | DX: M25.561 Pain in right knee (principal) ==

== ENCOUNTER → 2017-10-13 | Outpatient (CLI) | payer BC ==
[2017-10-13 16:56] LABS: BASO % 0.6 %; BASO ABS # 0.03 K/uL (0-0.2); EOS % 3.3 %; EOS ABS # 0.16 K/uL (0-0.5); HEMATOCRIT 36.4 % (37-47); HEMOGLOBIN 11.7 g/dL (12.0-16.0); LYMPH % 24.1 %; LYMPH ABS # 1.15 K/uL (1.2-3.4); MEAN CELL VOLUME 92.4 fL (80-100); MEAN CORPUSCULAR HEMOGLOBIN 29.7 pg (25-34); MEAN CORPUSCULAR HGB CONC 32.1 g/dl (32-36); MEAN PLATELET VOLUME 10.7 fL (7.4-10.4); MONO % 8.6 %; MONO ABS # 0.41 K/uL (0.11-0.59); NEUT % 63.4 %; NEUT ABS # 3.03 K/uL (1.4-6.5); PLATELET COUNT 215 K/uL (130-400); RED CELL DISTRIBUTION WIDTH CV 14.8 % (11.5-14.5); RED CELL DISTRIBUTION WIDTH SD 50.3 fL (36.4-46.3); RETIC COUNT % 0.7 % (0.5-2.0); WHITE BLOOD COUNT 4.78 K/uL (4.8-10.8)
== END | disposition home or self-care (01) ==
LOC: C.LABBFT 15:10
PROVIDERS: ATTEND Internal Medicine
DX: D64.9 Anemia, unspecified (principal); E55.9 Vitamin D deficiency, unspecified

== ENCOUNTER → 2017-10-13 | Outpatient (CLI) | payer BC ==
--- NOTE | 2017-10-13 12:54 | DIAGNOSTIC IMAGING REPORT ---
MRI OF THE RIGHT KNEE WITHOUT CONTRAST CLINICAL HISTORY: Loose body of the right knee. Exam suspicious for tibial stress fracture. Persistent right knee pain. COMPARISON STUDY: Right knee radiographs September 10, 2017. TECHNIQUE: Utilizing a 1.5 Mariah magnet and dedicated coil, multiplanar, multiecho imaging of the right knee was performed without intravenous or intraarticular contrast. FINDINGS: Alignment of the right knee is anatomic. Extensor mechanism is intact. There is a small right knee joint effusion. A fabella is noted. No definite loose bodies identified by MRI. There is a complex tear of the body and posterior horn of the medial meniscus which is partially extruded. A 9 mm T2 hypointense abnormality along the posterior root of the medial meniscus suggests a flipped fragment. There is increased intrasubstance signal within the lateral meniscus without definite lateral meniscal tear. Note is made of increased signal intensity and indistinctness of the fibers of the anterior cruciate ligament. Posterior cruciate ligament is intact. Medial collateral ligament and lateral collateral ligament complex are also intact. There is no suspicious marrow replacement. There is minimal 2 cm focus of increased marrow signal within the posterior proximal right tibia. No fracture line is identified. There is moderate cartilage thinning within the medial and patellofemoral compartments. IMPRESSION: 1. Complex tear of the body and posterior horn of the medial meniscus with suspected associated flipped fragment along the posterior root of the medial meniscus. 2. Increased signal intensity and indistinctness of the fibers of the anterior cruciate ligament which favors mucoid degeneration. Distal ACL tear could appear similar although is considered less likely. 3. Moderate chondrosis within the medial and patellofemoral compartments. 4. 2 cm focus of marrow signal abnormality within the posterior proximal right tibia without discrete fracture line identified. This is nonspecific and not highly suggestive of a stress fracture although an early developing stress fracture could have this imaging appearance Electronically signed by: Pawan Ho M.D. 10/13/2017 12:53 PM Dictated Date/Time: 10/13/2017 12:19 PM
== END | disposition home or self-care (01) ==
LOC: C.MRI 10:52
PROVIDERS: ATTEND Orthopaedic Surgery
DX: S83.231A Complex tear of medial meniscus, current injury, right knee, initial encounter (principal); X58.XXXA Exposure to other specified factors, initial encounter; M22.41 Chondromalacia patellae, right knee